=== PATIENT | female | born 1985 | race Caucasian/White ===

== ENCOUNTER → 2016-09-16 | Outpatient (CLI) | payer OTHER ==
[~2016-09-16] MED LIST: CPR/500 PO; METR-163 PO; OXYC-57 PO
[2016-09-16 18:52] LABS: URINE APPEARANCE CLOUDY (CLEAR); URINE BILIRUBIN NEG (NEG); URINE COLOR YELLOW; URINE EPITHELIAL CELL AUTO >30 /lpf (0-5); URINE NITRITE NEG (NEG); URINE SPECIFIC GRAVITY 1.025 (1.000-1.030); UROBILINOGEN NEG (NEG)
[2016-09-16 18:56] LABS: MANUAL MICROSCOPIC REQUIRED? NO; REVIEW REQ? NO
== END | disposition home or self-care (01) ==
LOC: C.LAB 18:21
PROVIDERS: ATTEND Obstetrics & Gynecology
DX: R10.2 Pelvic and perineal pain (principal)

== ENCOUNTER → 2016-10-21 | Outpatient (CLI) | payer OTHER ==
--- NOTE | 2016-10-21 13:52 | DIAGNOSTIC IMAGING REPORT ---
EXAMINATION: RENAL ULTRASOUND CLINICAL HISTORY: Hematuria. Pelvic pain. COMPARISON STUDY: None FINDINGS: The right kidney measures 11.3 cm. The left kidney measures 10 cm. There is no evidence of hydronephrosis. There are no renal masses. No bladder abnormalities are visualized. Bilateral ureteral jets were visualized. IMPRESSION : Normal renal ultrasound Electronically signed by: Sinan Tsang M.D. 10/21/2016 1:51 PM Dictated Date/Time: 10/21/2016 1:51 PM
== END | disposition home or self-care (01) ==
LOC: C.ULTRBC 13:04
PROVIDERS: ATTEND Physician Assistant
DX: R31.9 Hematuria, unspecified (principal); R10.2 Pelvic and perineal pain

== ENCOUNTER → 2016-10-21 | Outpatient (CLI) | payer OTHER ==
[2016-10-21 15:07] LABS: URINE APPEARANCE CLEAR (CLEAR); URINE BILIRUBIN NEG (NEG); URINE COLOR YELLOW; URINE NITRITE NEG (NEG); URINE PH 5.5 (4.5-7.5); URINE SPECIFIC GRAVITY 1.005 (1.000-1.030); UROBILINOGEN NEG (NEG); ZZUR CULT IF INDIC CLEAN CATCH NO
[2016-10-21 15:16] LABS: MANUAL MICROSCOPIC REQUIRED? NO; REVIEW REQ? NO
== END | disposition home or self-care (01) ==
LOC: C.LABSPEC 14:07
PROVIDERS: ATTEND Physician Assistant
DX: R10.2 Pelvic and perineal pain (principal); R31.9 Hematuria, unspecified

== ENCOUNTER → 2016-10-21 | Outpatient (CLI) | payer OTHER ==
[2016-10-21 12:53] LABS: BASO % 0.2 %; BASO ABS # 0.02 K/uL (0-0.2); COMPLETE YES; EOS % 0.9 %; HEMATOCRIT 40.9 % (37-47); IG% 0.3 %; LYMPH % 22.8 %; LYMPH ABS # 2.35 K/uL (1.2-3.4); MEAN CELL VOLUME 89.7 fL (80-100); MEAN CORPUSCULAR HGB CONC 33.5 g/dl (32-36); MEAN PLATELET VOLUME 10.4 fL (7.4-10.4); MONO % 5.8 %; PLATELET COUNT 242 K/uL (130-400); RED BLOOD COUNT 4.56 M/uL (4.2-5.4); WHITE BLOOD COUNT 10.31 K/uL (4.8-10.8)
[2016-10-21 13:47] LABS: PREG INTERNAL NEGATIVE QC NEG CLEAR BACKGROUND; PREG INTERNAL POSITIVE QC POS CONTROL LINE
== END | disposition home or self-care (01) ==
LOC: C.LAB1850 11:39
PROVIDERS: ATTEND Physician Assistant
DX: R10.2 Pelvic and perineal pain (principal); R31.9 Hematuria, unspecified

== ENCOUNTER 2016-10-22 18:38 | Emergency (ER) | payer OTHER ==
[~2016-10-22] VITALS: Ht 147.3 cm; Wt 81.2 kg
[2016-10-22 18:48] VITALS: TEMP 36.8; Ht 147.3 cm; Wt 81.2 kg
[2016-10-22] MEDS ORDERED: CPR/500 PO (20:17)
[2016-10-22] MEDS ORDERED: METR-163 PO (20:17)
[2016-10-22] MEDS ORDERED: SODIUM CHLORIDE 0.9% 1000ML 1,000 ML IV STA (20:32)
[2016-10-22] MEDS ORDERED: METOCLOPRAMIDE HCL INJ 5 MG/ML 2 ML VIAL IV STA (20:37)
[2016-10-22] MEDS ORDERED: KETOROLAC TROMETHAMINE 30 MG/ML VIAL IV STA (20:37)
[2016-10-22] MEDS ORDERED: HYDROmorphone INJ 1 MG/ML SYR IV STA ×2 (20:37→23:57)
[2016-10-22 20:57] LABS: BASO % 0.1 %; BASO ABS # 0.01 K/uL (0-0.2); COMPLETE YES; EOS % 1.4 %; IG% 0.4 %; LYMPH % 46.6 %; LYMPH ABS # 4.84 K/uL (1.2-3.4); MEAN CELL VOLUME 91.9 fL (80-100); MEAN CORPUSCULAR HEMOGLOBIN 30.6 pg (25-34); MEAN CORPUSCULAR HGB CONC 33.3 g/dl (32-36); MEAN PLATELET VOLUME 10.3 fL (7.4-10.4); NEUT % 46.5 %; PLATELET COUNT 240 K/uL (130-400); RED BLOOD COUNT 4.68 M/uL (4.2-5.4); WHITE BLOOD COUNT 10.38 K/uL (4.8-10.8)
[2016-10-22 21:00] LABS: URINE APPEARANCE CLEAR (CLEAR); URINE BILIRUBIN NEG (NEG); URINE COLOR YELLOW; URINE NITRITE NEG (NEG); URINE SPECIFIC GRAVITY 1.009 (1.000-1.030); UROBILINOGEN NEG (NEG)
[2016-10-22 21:15] LABS: BUN/CREATININE RATIO 18.2 (10-20); CALCIUM 9.4 mg/dl (8.5-10.1); CREATININE 0.72 mg/dl (0.60-1.20); POTASSIUM 3.7 mmol/L (3.5-5.1)
[2016-10-22 21:16] LABS: MANUAL MICROSCOPIC REQUIRED? NO; REVIEW REQ? NO
[2016-10-22 21:17] LABS: PREG INTERNAL NEGATIVE QC NEG CLEAR BACKGROUND; PREG INTERNAL POSITIVE QC POS CONTROL LINE
--- NOTE | 2016-10-22 21:55 | EMERGENCY ROOM VISIT NOTE ---
History Report prepared by Lou: Nusrat Rizvi Under the Supervision of: Dr. Emmanuel Sinclair M.D. First contact with patient: 19:54 Chief Complaint: ABDOMINAL PAIN Stated Complaint: PELVIC, SIDE,BACK PAIN Nursing Triage Summary: pt seen at [facility] yesterday for lower back and pelvic pain. had blood work, US of kidneys and told everything is negative and to follow up with PCP. pt reports they told her it my be intestinal related. pt then called today and told by PCP to go to [facility] for follow up. pt reports still having sharp pains in abdomen. pain was left radiating to right abdomen. now pain is all on the right side. pt reports she was also told that she has blood in her urine, but negative for infection. pt reports hx of IBS and is on fertility med Fermera and is attempting to get . History of Present Illness The patient is a 31 year old female who presents to the Emergency Room with complaints of constant sharp LLQ abdominal pain beginning 4 days ago. The patient states that she has a history of IBS and has also been following up with a gynecologists for urinary symptoms. She reports that she had an ultrasound, blood work, UA, and pelvic exam done yesterday and was started on Cipro but does not have a UTI. The patient notes that her abdominal pain is worsened with walking, coughing, and movement. She complains of constipation and diarrhea. The patient denies any nausea, vomiting, dysuria, fever, chills, vaginal bleeding or discharge, dark or bloody stools. She rates her pain as an 8 /10 in severity. She notes that her LNMP was 11 days ago and lasted 1 day which is typical for her. Pt is A0. Source of History: patient Onset: 4 days ago Position: abdomen (LLQ) Symptom Intensity: 8/10 Quality: sharp Timing: constant Modifying Factors (Worsening): movement, other (coughing) Associated Symptoms: + diarrhea, No chills, No fevers, No nausea, No vomiting Note: She complains of constipation. The patient denies any dysuria, vaginal bleeding or discharge, dark or bloody stools. Review of Systems See HPI for pertinent positives & negatives. A total of 10 systems reviewed and were otherwise negative. Past Medical & Surgical Medical Problems: (1) hernia Family History No pertinent family history stated. Social History Smoking Status: Never Smoker Alcohol Use: none Drug Use: none Marital Status: Housing Status: lives with family Current/Historical Medications Scheduled Ciprofloxacin (Ciprofloxacin HCl), 500 MG PO BID Metronidazole (Flagyl), 500 MG PO BID Scheduled PRN Oxycodone/Acetaminophen 5MG/325MG (Percocet 5MG/325MG), 1-2 TAB PO Q4H PRN for Pain Allergies Coded Allergies: No Known Allergies (Unverified , 10/22/16) Physical Exam Vital Signs Date Time Temp Pulse Resp B/P Pulse Ox O2 Delivery O2 Flow Rate FiO2 10/23/16 00:19 98 18 106/65 98 10/23/16 00:09 98 18 106/65 98 Room Air 10/22/16 22:16 97 16 116/74 96 Room Air 10/22/16 19:56 86 18 118/85 100 Room Air 10/22/16 18:48 36.8 83 18 133/65 100 Room Air Physical Exam GENERAL: Patient is a healthy-appearing well-nourished HEAD: Normocephalic atraumatic EYES: Ocular movements intact pupils equal and react to light OROPHARYNX mucous membranes are moist no exudates present no erythema or edema present NECK: Supple no nuchal rigidity CHEST: Good equal expansion LUNGS: Clear and equal to auscultation CARDIAC: Normal S1 and S2 ABDOMEN: Soft tender to the RLQ no guarding BACK: No CVA tenderness EXTREMITIES: No pain upon palpation normal muscle strength in all groups no clubbing cyanosis or edema NEURO: Patient is following commands is answering questions appropriately. Alert and oriented x3 Cranial Nerves 2-12 grossly intact Medical Decision & Procedures ER Provider Diagnostic Interpretation: Radiology results as stated below per my review and radiologist interpretation: CT Abdomen & Pelvis: No renal calculi. No hydronephrosis. No findings to extend the patient's hematuria. No free intraperitoneal air or fluid. Bowel is normal in caliber. The appendix is normal in appearance. Solid organs are otherwise unremarkable. Radiologist: Barrett Galindo MD EXAMINATION: PELVIC ULTRASOUND (transabdominal and endovaginal scanning) FINDINGS: The uterus measured 9.3 x 3.8 x 4.6 cm. There are small nabothian gland cysts. The endometrial stripe measured 9 mm. The right ovary measured 43 x 28 x 33 mm. There is a 19 mm dominant follicle. The left ovary measured 24 x 32 x 19 mm.. There is no ultrasonographic evidence of ovarian torsion. It should be noted that ovarian torsion can be present with normal Doppler ultrasonographic findings. There was no evidence of pathologic free pelvic fluid. IMPRESSION: Normal pelvic ultrasound. Electronically signed by: Sinan Tsang M.D. 10/22/2016 10:12 PM Dictated Date/Time: 10/22/2016 10:10 PM Laboratory Results 10/22/16 20:44 Red Blood Count 4.68, Mean Corpuscular Volume 91.9, Mean Corpuscular Hemoglobin 30.6, Mean Corpuscular Hemoglobin Concent 33.3, Mean Platelet Volume 10.3, Neutrophils (%) (Auto) 46.5, Lymphocytes (%) (Auto) 46.6, Monocytes (%) (Auto) 5.0, Eosinophils (%) (Auto) 1.4, Basophils (%) (Auto) 0.1, Neutrophils # (Auto) 4.82, Lymphocytes # (Auto) 4.84, Monocytes # (Auto) 0.52, Eosinophils # (Auto) 0.15, Basophils # (Auto) 0.01 10/22/16 20:44 Test 10/22/16 20:02 10/22/16 20:44 Urine Color YELLOW Urine Appearance CLEAR (CLEAR) Urine pH 5.0 (4.5-7.5) Urine Specific [place] 1.009 (1.000-1.030) Urine Protein NEG (NEG) Urine Glucose (UA) NEG (NEG) Urine Ketones NEG (NEG) Urine Occult Blood NEG (NEG) Urine Nitrite NEG (NEG) Urine Bilirubin NEG (NEG) Urine Urobilinogen NEG (NEG) Urine Leukocyte Esterase NEG (NEG) White Blood Count 10.38 K/uL (4.8-10.8) Red Blood Count 4.68 M/uL (4.2-5.4) Hemoglobin 14.3 g/dL (12.0-16.0) Hematocrit 43.0 % (37-47) Mean Corpuscular Volume 91.9 fL (80-100) Mean Corpuscular Hemoglobin 30.6 pg (25-34) Mean Corpuscular Hemoglobin Concent 33.3 g/dl (32-36) Platelet Count 240 K/uL (130-400) Mean Platelet Volume 10.3 fL (7.4-10.4) Neutrophils (%) (Auto) 46.5 % Lymphocytes (%) (Auto) 46.6 % Monocytes (%) (Auto) 5.0 % Eosinophils (%) (Auto) 1.4 % Basophils (%) (Auto) 0.1 % Neutrophils # (Auto) 4.82 K/uL (1.4-6.5) Lymphocytes # (Auto) 4.84 K/uL (1.2-3.4) Monocytes # (Auto) 0.52 K/uL (0.11-0.59) Eosinophils # (Auto) 0.15 K/uL (0-0.5) Basophils # (Auto) 0.01 K/uL (0-0.2) RDW Standard Deviation 43.9 fL (36.4-46.3) RDW Coefficient of Variation 13.2 % (11.5-14.5) Immature Granulocyte % (Auto) 0.4 % Immature Granulocyte # (Auto) 0.04 K/uL (0.00-0.02) Anion Gap 8.0 mmol/L (3-11) Est Creatinine Clear Calc Drug Dose 101.0 ml/min Estimated GFR () 128.4 Estimated GFR (Non- 110.8 BUN/Creatinine Ratio 18.2 (10-20) Calcium Level 9.4 mg/dl (8.5-10.1) Total Bilirubin 0.5 mg/dl (0.2-1) Direct Bilirubin 0.1 mg/dl (0-0.2) Aspartate Amino Transf (AST/SGOT) 17 U/L (15-37) Alanine Aminotransferase (ALT/SGPT) 22 U/L (12-78) Alkaline Phosphatase 91 U/L (45-117) Total Protein 8.3 gm/dl (6.4-8.2) Albumin 4.5 gm/dl (3.4-5.0) Lipase 186 U/L (73-393) Human Chorionic Gonadotropin, Qual NEG (NEG) Date/Time Source Procedure Growth Status 10/23/16 00:15 Stool C.difficile Toxin B Gene (PCR) - Final No C. difficile toxin B gene detected Complete Labs reviewed by ED physician. Medications Administered Medications (Trade) Dose Ordered Sig/Jorge Route Start Time Stop Time Status Last Admin Dose Admin Sodium Chloride (Nss 1000ml) 1,000 ml @ 999 mls/hr Q1H1M STAT IV 10/22/16 20:32 10/22/16 21:32 DC 10/22/16 20:32 999 MLS/HR Hydromorphone HCl (Dilaudid Inj) 1 mg NOW STAT IV 10/22/16 20:37 10/22/16 20:40 DC 10/22/16 20:56 1 MG Ketorolac Tromethamine (Toradol Inj) 30 mg NOW STAT IV 10/22/16 20:37 10/22/16 20:40 DC 10/22/16 20:56 30 MG Metoclopramide HCl (Reglan Inj) 10 mg NOW STAT IV 10/22/16 20:37 10/22/16 20:40 DC 10/22/16 20:56 10 MG Ondansetron HCl (Zofran Inj) 4 mg NOW STAT IV 10/22/16 22:12 10/22/16 22:13 DC 10/22/16 22:16 4 MG Oxycodone/ Acetaminophen (Percocet 5/ 325MG Home Pack) 1 homepack UD ONCE PO 10/23/16 00:00 10/23/16 00:01 DC 10/23/16 00:16 1 HOMEPACK ED Course 1953: Past medical records reviewed. The patient was evaluated in room B10. A complete history and physical examination was performed. 2031: Sodium Chloride 1000 ml @ 999 mls/hr IV. 2036: Reglan Inj 10mg IV, Toradol Inj 30mg IV, Dilaudid Inj 1mg IV. 2: Zofran Inj 4mg IV. 7: Dilaudid Inj 1mg IV. 0000: Oxycodone/Acetaminophen 1 homepack PO. 0006: Upon reexamination the patient is hemodynamically stable. I discussed results and treatment plan with the patient. She verbalizes agreement and understanding. The patient is ready for discharge. Medical Decision Differential diagnosis: Etiologies such as appendicitis, diverticulitis, PUD, biliary pathology, UTI, pancreatitis, obstruction, mesenteric ischemia, aortic pathology, infections, inflammatory bowel disease, renal colic, as well as others were entertained. This is a 31-year-old female who presents emergency department complaining of right lower quadrant abdominal pain. Patient was seen yesterday and was started on Cipro and Flagyl the patient reports today complaining of more abdominal pain. For this reason the patient was given a CT scan. This did not show any evidence of acute process. Her ultrasound is concerning for a 2 cm right lower quadrant cyst. Believe that this could possibly be causing the patient's pain. I did recommend a clear liquid diet for the next 48 hours. While in the emergency department the patient received normal saline bolus, Dilaudid, Reglan. Repeat examination revealed improvement patient's symptoms. I do believe that the patient as well as to be discharged home follow-up with [facility]. Patient was in agreement with the treatment plan. Impression Primary Impression: RLQ abdominal pain Additional Impression: Ovarian cyst Scribe Attestation The scribe's documentation has been prepared under my direction and personally reviewed by me in its entirety. I confirm that the note above accurately reflects all work, treatment, procedures, and medical decision making performed by me. Departure Information Dispostion Home / Self-Care Prescriptions Oxycodone/Acetaminophen 5MG/325MG (PERCOCET 5MG/325MG) Tab 1-2 TAB PO Q4H Y for Pain, #14 TAB Prov: Emmanuel Sinclair MD 10/22/16 Referrals Jeovanny Nunez M.D. (PCP) Forms Call Back Authorization, HOME CARE DOCUMENTATION FORM, IMPORTANT VISIT INFORMATION Patient Instructions ED Abd Pain Unkn Cause Fem, ED Cyst Ovarian, My [facility] Additional Instructions Need follow up with OB You received narcotic or benzodiazepene medication while in the emergency room today. Do not drive, operate heavy machinery, or drink alcohol under the influence of this medication. Take 600 mg Ibuprofen every 6 hours Take Percocet for breakthrough pain You have been examined and treated today on an emergency basis only. This is not a substitute for, or an effort to provide, complete comprehensive medical care. It is impossible to recognize and treat all injuries or illnesses in a single emergency department visit. It is therefore important that you follow up closely with Dr Nunez. Call as soon as possible for an appointment. Thank you for your time and consideration. I look forward to speaking with you again soon. Please don't hesitate to call us if you have any questions. Problem Qualifiers Additional Impression: Ovarian cyst Laterality: right Qualified Codes: N83.201 - Unspecified ovarian cyst, right side
[2016-10-22] MEDS ORDERED: ONDANSETRON INJ 2 MG/ML 2 ML VIAL IV STA (22:12)
--- NOTE | 2016-10-22 22:13 | DIAGNOSTIC IMAGING REPORT ---
EXAMINATION: PELVIC ULTRASOUND (transabdominal and endovaginal scanning) CLINICAL HISTORY: Right-sided pelvic pain COMPARISON STUDY: FINDINGS: The uterus measured 9.3 x 3.8 x 4.6 cm. There are small nabothian gland cysts. The endometrial stripe measured 9 mm. The right ovary measured 43 x 28 x 33 mm. There is a 19 mm dominant follicle. The left ovary measured 24 x 32 x 19 mm.. There is no ultrasonographic evidence of ovarian torsion. It should be noted that ovarian torsion can be present with normal Doppler ultrasonographic findings. There was no evidence of pathologic free pelvic fluid. IMPRESSION: Normal pelvic ultrasound. Electronically signed by: Sinan Tsang M.D. 10/22/2016 10:12 PM Dictated Date/Time: 10/22/2016 10:10 PM
[2016-10-22] MEDS ORDERED: OPTIRAY 320 IV PRN (23:15)
[2016-10-22] MEDS ORDERED: OXYC-57 PO (23:59)
[2016-10-23] MEDS ORDERED: PERCOCET HOME PACK PO ONE
[2016-10-23 00:19] VITALS: BP 106/65; PULSE 98; O2SAT 98
--- NOTE | 2016-10-23 06:44 | DIAGNOSTIC IMAGING REPORT ---
CT OF THE ABDOMEN AND PELVIS WITH CONTRAST CLINICAL HISTORY: Right lower quadrant abdominal pain. Hematuria. COMPARISON STUDY: Renal ultrasound October 21, 2016 and pelvic ultrasound October 22, 2016. TECHNIQUE: Following IV administration of 115 mL of Optiray-320, axial images of the abdomen and pelvis were obtained from the lung bases to the proximal femurs. Images were reviewed in the axial, sagittal, and coronal planes. IV contrast was administered without complication. Oral contrast was administered. CT DOSE: 782.17 mGy.cm FINDINGS: Lung bases are clear. The liver, spleen, adrenal glands, kidneys and pancreas are normal with the exception of mild hepatomegaly. There is no hydronephrosis. No urinary calculi are identified on this contrast enhanced exam. There is no evidence for a bowel obstruction. There may be a previous umbilical hernia repair with mesh. The appendix is normal. There is a dominant follicle within the right ovary. No pneumatosis, free air or portal venous gas is present. Skeletal structures are unremarkable. IMPRESSION: No acute process within the abdomen or pelvis. Normal appendix. Electronically signed by: Rayshawn Pino M.D. 10/23/2016 6:42 AM Dictated Date/Time: 10/23/2016 6:37 AM
== END 2016-10-23 00:17 | disposition home or self-care (01) ==
LOC: C.EDB 18:40
DX: N83.201 Unspecified ovarian cyst, right side (principal); K58.0 Irritable bowel syndrome with diarrhea

== ENCOUNTER → 2016-11-30 | Outpatient (CLI) | payer OTHER ==
[2016-11-30 18:32] LABS: URINE APPEARANCE CLOUDY (CLEAR); URINE BILIRUBIN NEG (NEG); URINE COLOR DK YELLOW; URINE EPITHELIAL CELL AUTO >30 /lpf (0-5); URINE NITRITE NEG (NEG); URINE PH 5.5 (4.5-7.5); URINE SPECIFIC GRAVITY 1.026 (1.000-1.030); UROBILINOGEN POS (NEG)
[2016-11-30 18:39] LABS: MANUAL MICROSCOPIC REQUIRED? NO; REVIEW REQ? NO
== END | disposition home or self-care (01) ==
LOC: C.LABSPEC 17:51
PROVIDERS: ATTEND Obstetrics & Gynecology
DX: O09.01 Supervision of pregnancy with history of infertility, first trimester (principal); Z3A.00 Weeks of gestation of pregnancy not specified

== ENCOUNTER → 2016-12-07 | Outpatient (CLI) | payer OTHER ==
[2016-12-07 10:36] LABS: BASO % 0.1 %; BASO ABS # 0.01 K/uL (0-0.2); COMPLETE YES; EOS % 0.5 %; HEMATOCRIT 40.1 % (37-47); IG% 0.4 %; LYMPH % 26.7 %; LYMPH ABS # 2.07 K/uL (1.2-3.4); MEAN CELL VOLUME 93.3 fL (80-100); MEAN CORPUSCULAR HEMOGLOBIN 30.9 pg (25-34); MEAN CORPUSCULAR HGB CONC 33.2 g/dl (32-36); MEAN PLATELET VOLUME 10.2 fL (7.4-10.4); MONO % 5.7 %; NEUT % 66.6 %; PLATELET COUNT 228 K/uL (130-400); WHITE BLOOD COUNT 7.76 K/uL (4.8-10.8)
[2016-12-09 00:54] LABS: CHLAMYDIA TRACH RNA*** NOT DETECTED (NOT DETECTED); GC (NEIS GONORRHOEAE)RNA** NOT DETECTED (NOT DETECTED)
== END | disposition home or self-care (01) ==
LOC: C.LAB1850 08:58
PROVIDERS: ATTEND Obstetrics & Gynecology
DX: O09.01 Supervision of pregnancy with history of infertility, first trimester (principal); Z3A.00 Weeks of gestation of pregnancy not specified

== ENCOUNTER → 2017-02-07 | Outpatient (CLI) | payer OTHER ==
[2017-02-07 11:44] LABS: GTGD 50 Grams
== END | disposition home or self-care (01) ==
LOC: C.LAB1850 10:03
PROVIDERS: ATTEND Obstetrics & Gynecology
DX: O09.01 Supervision of pregnancy with history of infertility, first trimester (principal); Z3A.00 Weeks of gestation of pregnancy not specified

== ENCOUNTER → 2017-03-29 | Outpatient (CLI) | payer OTHER | END | disposition home or self-care (01) | LOC: C.LAB1850 07:06 | PROVIDERS: ATTEND Obstetrics & Gynecology | DX: O28.9 Unspecified abnormal findings on antenatal screening of mother (principal) ==

== ENCOUNTER → 2017-04-26 | Outpatient (CLI) | payer OTHER ==
[~2017-04-26] MED LIST changes: -OXYC-57 PO
[2017-04-26 14:31] LABS: URINE APPEARANCE CLEAR (CLEAR); URINE BILIRUBIN NEG (NEG); URINE COLOR YELLOW; URINE EPITHELIAL CELL AUTO >30 /lpf (0-5); URINE NITRITE NEG (NEG); URINE PH 7.5 (4.5-7.5); URINE SPECIFIC GRAVITY 1.012 (1.000-1.030); UROBILINOGEN NEG (NEG)
[2017-04-26 14:32] LABS: MANUAL MICROSCOPIC REQUIRED? NO; REVIEW REQ? NO
== END | disposition home or self-care (01) ==
LOC: C.LABSPEC 14:01
PROVIDERS: ATTEND Obstetrics & Gynecology
DX: O09.03 Supervision of pregnancy with history of infertility, third trimester (principal)

== ENCOUNTER → 2017-04-30 | Outpatient (CLI) | payer OTHER ==
[2017-04-30 10:55] LABS: HEMATOCRIT 37.5 % (37-47)
== END | disposition home or self-care (01) ==
LOC: C.LAB 08:26
PROVIDERS: ATTEND Obstetrics & Gynecology
DX: O09.03 Supervision of pregnancy with history of infertility, third trimester (principal); Z3A.00 Weeks of gestation of pregnancy not specified

== ENCOUNTER → 2017-07-07 | Outpatient (CLI) | payer OTHER ==
[~2017-07-07] MED LIST changes: +PRENTAB26 PO
[2017-07-08 07:21] LABS: URINE APPEARANCE CLOUDY (CLEAR); URINE BILIRUBIN NEG (NEG); URINE COLOR YELLOW; URINE EPITHELIAL CELL AUTO >30 /lpf (0-5); URINE NITRITE NEG (NEG); URINE PH 5.5 (4.5-7.5); URINE SPECIFIC GRAVITY 1.024 (1.000-1.030); UROBILINOGEN NEG (NEG)
[2017-07-08 07:25] LABS: MANUAL MICROSCOPIC REQUIRED? NO; REVIEW REQ? YES
== END | disposition home or self-care (01) ==
LOC: C.LAB1850 15:37
PROVIDERS: ATTEND Obstetrics & Gynecology
DX: R30.0 Dysuria (principal)

== ENCOUNTER 2017-07-08 12:29 | Inpatient (IN) | payer OTHER ==
[~2017-07-08] VITALS: Ht 149.9 cm; Wt 79.0 kg
[~2017-07-08 12:29] MED LIST changes: -PRENTAB26 PO
[2017-07-08] MEDS ORDERED: OXYTOCIN 30 UNITS/500ML NSS IV ONE (12:31)
[2017-07-08] MEDS ORDERED: MEASLES, MUMPS & RUBELLA VIRUS VIAL SQ. ONE (12:45)
[2017-07-08] MEDS ORDERED: LANOLIN OINT EXT PRN ×2 (12:45)
[2017-07-08] MEDS ORDERED: DIPHTHERIA/TETANUS/PERTUSSIS 0.5 ML SYR/VIAL IM. ONE (12:45)
[2017-07-08] MEDS ORDERED: SUPERCREAM 0.870 % 15GM JAR EXT PRN (12:45)
[2017-07-08] MEDS ORDERED: BENZOCAINE 20% AER SPR 82.5 GM CAN EXT PRN (12:45)
[2017-07-08] MEDS ORDERED: OXYTOCIN 30 UNITS/500ML NSS IV PRN (12:45)
[2017-07-08] MEDS ORDERED: ACETAMINOPHEN 325 MG TAB PO PRN (12:45)
[2017-07-08] MEDS ORDERED: OXYCODONE/ACETAMINOPHEN 5-325 TAB PO PRN (12:45)
[2017-07-08] MEDS ORDERED: HYDROCORTISONE ACETATE 25 MG SUPP PR PRN (12:45)
[2017-07-08] MEDS ORDERED: LACTATED RINGER'S 1000ML 1,000 ML IV SCH (13:00)
--- NOTE | 2017-07-08 13:01 | DELIVERY SUMMARY ---
DATE OF OPERATION: 07/08/2017 PREOPERATIVE DIAGNOSIS: 1. Wynn intrauterine at 38+ weeks. 2. Group B strep positive. 3. Rubella non-immune. 4. History of infertility with a conceived using Femara. 5. Spontaneous onset of labor. 6. Spontaneous rupture of membranes occurring in ambulance en route to hospital. POSTOPERATIVE DIAGNOSIS: Same. PROCEDURE: Spontaneous vaginal delivery. SURGEON: Dr. Weston. SECONDS GRADER: None. ESTIMATED BLOOD LOSS: 350. COMPLICATIONS: None. DISPOSITION: Stable in Labor and Delivery. DESCRIPTION: Otilia is a 32-year-old at 38+ weeks. She notified EMS when she began experiencing contractions this morning that rapidly became very painful. Labor and Delivery was notified that the patient was incoming to the hospital by the ER and that she was expected within the next few minutes. A delivery team and infant warmer were brought to the ER. We were awaiting the arrival of patient in trauma suite A1 when Otilia did arrive. I immediate checked her cervix and found her to be 9 cm dilated and ruptured for clear fluid. We at that time to made the decision to move her to directly to Labor and Delivery and the team relocated. Once she was in room 2 and transferred into the Labor and Delivery bed she was reassessed and found to be completely dilated. An IV was quickly placed and the patient then began her second stage of labor. She pushed very well and over several contractions was able to bring the head of the to delivery in an REINA position. The neck was checked and there was no nuchal cord. Through the next push the right/anterior shoulder as well as the right fist, which was compound presentation, did deliver. The left/posterior shoulder then delivered and the remainder of the infant followed with no difficulty whatsoever. A vigorous female was then placed on the maternal abdomen where the cord was doubly clamped and cut by the father of the baby. The placenta delivered spontaneously and was noted to be intact with a 3-vessel cord. At the completion of delivery the cervix, vagina and perineum were examined. The only laceration was a shallow first degree laceration of the perineum and posterior fourchette for which the patient declined repair and I think this is highly reasonable. The patient and are currently in stable condition in Labor and Delivery room 2. I attest to the content of the Intraoperative Record and any orders documented therein. Any exception s are noted below.
[2017-07-08 13:36] VITALS: Ht 149.9 cm; Wt 79.0 kg
[2017-07-08 16:15] VITALS: BP 137/85; PULSE 97; TEMP 36.7
[2017-07-08] MEDS: IBUPROFEN 600 MG TAB PO PRN (16:33)
[2017-07-08 16:35] VITALS: BP 155/78; PULSE 87
[2017-07-08 19:45] VITALS: BP 128/83; PULSE 105; TEMP 36.7; O2SAT 97
[2017-07-08] MEDS: DOCUSATE SODIUM 100 MG CAP PO SCH (19:59)
[2017-07-08 23:45] VITALS: BP 129/83; PULSE 81; TEMP 36.8; O2SAT 97
[2017-07-09] MEDS: IBUPROFEN 600 MG TAB PO PRN ×4 (02:24→23:25)
[2017-07-09 03:50] VITALS: BP 129/85; PULSE 84; TEMP 36.5; O2SAT 96
[2017-07-09 06:57] LABS: HEMATOCRIT 40.9 % (37-47)
--- NOTE | 2017-07-09 07:46 | Progress Note ---
Subjective Jul 09, 2017. Subjective conversation w/ patient, physical exam, chart review, lab review Ambulation: ambulating normally Voiding: no voiding problems Passing Gas: Yes Diet Tolerance: Regular Diet Lochia: Moderate Feeding Type: Breast Feeding Pain: controlled Review of Systems Respiratory: No shortness of breath Cardiac: No chest pain Abdomen: No vomiting Female : No dysuria Objective Vital Signs Date Time Temp Pulse Resp B/P (MAP) Pulse Ox O2 Delivery O2 Flow Rate FiO2 07/09/17 03:50 36.5 84 16 129/85 (100) 96 Room Air 07/08/17 23:45 36.8 81 16 129/83 (98) 97 Room Air 07/08/17 23:45 97 Room Air 07/08/17 19:45 36.7 105 16 128/83 (98) 97 Room Air 07/08/17 16:35 87 155/78 (103) 07/08/17 16:15 36.7 97 24 137/85 Physical Exam General Appearance: WELL-APPEARING, WD/WN, NO APPARENT DISTRESS Respiratory/Chest: lungs clear, normal breath sounds, no respiratory distress Cardiovascular: regular rate, rhythm, no gallop Abdomen: normal bowel sounds, soft Fundus: Firm, Non-Tender, Relation to Umbilicus (1 below U) Extremities: non-tender, normal inspection Laboratory Results Last 24 Hours Test 07/09/17 05:59 Hemoglobin 13.5 g/dL Hematocrit 40.9 % Assessment and Plan Post- Day#: 1 Continue Routine Care: 32 yof (now2) 07/08 1200 O+/GBS +/ Rubella non immune Vitals reviewed and wnl Hgb 13.5. No s/s anemia. Pt doing well clinically, will stay 48 hours pending baby. MMR ordered. Continue routine post care, encourage ambulation, monitor lochia, support, control pain motrin/tylenol. LINA CINTRON FMR PGY 1 Resident Physician Supervision Note: I interviewed and examined the patient. Discussed with Dr. Cintron and agree with findings and plan as documented in the note. Any exceptions or clarifications are listed here: [None] Documented By: Myranda Weston Resident Tracking Resident Involvement: Resident Care Provided Care Provided: OB Delivery
[2017-07-09] MEDS ORDERED: PRENTAB26 PO ×2 (07:47)
--- NOTE | 2017-07-09 07:48 | Discharge Instructions ---
Discharge Instructions Date of Service Jul 09, 2017. Admission Reason for Admission: LABOR Discharge Discharge Diagnosis / Problem: SPONTANEOUS VAGINAL DELIVERY Discharge Goals Goal(s): Routine recovery after delivery Medications Continue Dispensed Medications: supercream, dermaplast, tucks, lansinoh Activity Recommendations Activity Limitations: per Instructions/Follow-up section . Instructions / Follow-Up Instructions / Follow-Up ACTIVITY RECOMMENDATIONS: * Gradual return to full activity over the next 2-3 weeks. * No lifting - nothing heavier than baby over the next 2-3 weeks. * Do not engage in vigorous exercise, sexual activity or sports until cleared by your physician. * Do not drive or operate any motorized equipment until cleared by your physician. * You may shower/bathe daily. MEDICATIONS: For discomfort or pain, you may use Acetaminophen (Tylenol), Ibuprofen (Advil), or Naproxen (Aleve) following the package directions. For constipation you may use Colace following the package directions. BREAST CARE: If you are not breast feeding: * Wear a supportive bra 24 hours a day for one to two weeks. * Avoid stimulating your breasts and nipples as much as possible during the first few weeks after delivery. * When taking a shower, have the warm water hit your back, not breasts. * When your breasts feel full, apply ice packs. Usually three to four times a day helps ease the discomfort. * Take a mild pain medication (Tylenol / Motrin) when you are uncomfortable. If breast feeding: * Use breast milk to lubricate nipples. Lansinoh cream may be used for sore nipples. You do not need to remove cream prior to breast feeding. If using a different brand of cream, check the label for directions regarding removal of cream prior to nursing. * Wear a supportive bra. * If having problems with breasts or breast feeding, call a sustainability consultant or your health care provider. EPISIOTOMY CARE: After delivery, if you have an episiotomy (stitches), the following steps will ease discomfort and aid healing. * For the first 24 hours after delivery, place ice packs next to your episiotomy to help reduce swelling. * After the first 24 hour-period, sitz baths, either portable or in the tub, are suggested. A shower with a shower arm sprayed over the episiotomy may be comforting. * So care should be done after each voiding and bowel movement. Squirt warm water from a plastic bottle over the perineum (region of the body between the anus and urinary opening) and pat dry. * Use Dermoplast to ease discomfort. Shake container. [place] directly over the episiotomy. Place a Tucks on a clean sanitary pad next to your episiotomy. SPECIAL CARE INSTRUCTIONS: When you are discharged from the hospital, it is important for you to follow the instructions listed below: * During the first week at home, you should be able to care for yourself and your baby. In addition, the usual light household activities are encouraged. * Limit your activities to the way you feel. Do not try to clean the house or move furniture. Be sensible. * If you actively engage in sports and have done so up until the time of your delivery, you may resume these activities as soon as you feel able. This may take up to one month or even longer. Use good judgment. * Continue to take your vitamins for at least six weeks after the of your baby. * Your diet need not be limited unless you were on a special diet before your delivery. Breast-feeding mothers need around 2500 calories per day and at least 64-80 ounces of fluid per day (8 to 10 glasses). * You should eat foods from the four major food groups. Crash diets or fad diets are to be avoided. Eating lean meats, fresh fruits and vegetables, low-fat dairy products, high fiber foods and a regular exercise program, will help you get back to your pre- weight without putting your health at risk. * Constipation is sometimes a problem after delivery. Take a mild laxative as needed. If breast feeding, Milk of Magnesia is acceptable to use. You may use a suppository or Fleets enema if no episiotomy. * A daily shower or tub bath is suggested. Be sure to thoroughly and gently dry the perineum. * A bloody vaginal discharge will usually continue until around four weeks post . A small amount of bleeding may continue for as long as six weeks. Vaginal discharge changes from the bright red bleeding after delivery to pink then brownish and finally yellowish-pink before becoming white and disappearing. * Bleeding may increase with activity. Your first period may come in 4-8 weeks. If you are breast feeding, your period may be delayed even longer. * [place] (sex) can begin whenever both you and your partner feel comfortable and do not have any form of genital infection. It is recommended that you wait at least six weeks for internal and external healing to occur. If you have questions, please talk to your health care practitioner. A condom should be used to prevent infection and . * Foreplay, gentle intercourse and lubrication is very important the first several times to prevent pain. A water-based lubricant such as K-Y jelly or Astroglide may be used. * If you have RH negative blood and your baby is RH positive, you will receive RHOGAM by injection prior to discharge. The nurse will give you a card to keep with you that has the date and place that you received RHOGAM after delivery. * During your care, you had a Rubella screen done to check for the presence of rubella antibodies in your blood. If your test was negative, you will receive a Rubella vaccine prior to discharge. This vaccine may cause a fever, soreness at the injection site and flu-like symptoms. If these symptoms persist, notify your health care practitioner. is not advised for one month after a Rubella vaccine. * Verbalizes understanding of car seat law as reviewed with patient nursing. * Car Seat hand-out given and reviewed with patient by nursing. * Shaken baby information reviewed with patient by nursing. Call you doctor if: * Heavy bleeding (saturating several pads an hour) or passing clots the size of your fist. * A fever >101 degrees F (38.3 degrees C) on two occasions four hours apart and /or chills. * Unusual pain in the pelvic or vaginal areas. * "Baby Blues" lasting longer than two weeks. If you have any questions or concerns, call your health care practitioner at . FOLLOW UP VISIT: * Please call the office at to schedule a 6 week examination. It is important you keep this appointment. It is important for you to make arrangements for either yearly or twice yearly check-ups thereafter. Current Hospital Diet Patient's current hospital diet: Regular OB Diet Discharge Diet Recommended Diet: Regular Diet Pending Studies Studies pending at discharge: no Medical Emergencies . Who to Call and When: Medical Emergencies: If at any time you feel your situation is an emergency, please call 911 immediately. . Non-Emergent Contact Non-Emergency issues call your: Primary Care Provider . . "Provider Documentation" section prepared by Frances Cintron. . VTE Core Measure Inpt VTE Proph given/why not?: Treatment not indicated
[2017-07-09 08:00] VITALS: BP 135/90; PULSE 83; TEMP 36.5
[2017-07-09] MEDS: DOCUSATE SODIUM 100 MG CAP PO SCH ×2 (08:03→19:36)
[2017-07-09] MEDS: PRENATAL VITAMIN TAB PO SCH (08:03)
[2017-07-09 12:15] VITALS: BP 128/80; PULSE 80; TEMP 36.5
[2017-07-09 16:00] VITALS: BP 125/85; PULSE 90; TEMP 36.6
[2017-07-09 20:35] VITALS: BP 141/83; PULSE 85
[2017-07-09 23:15] VITALS: BP 121/83; PULSE 77; TEMP 36.5
[2017-07-10] MEDS: IBUPROFEN 600 MG TAB PO PRN (07:57)
[2017-07-10] MEDS: DOCUSATE SODIUM 100 MG CAP PO SCH (07:57)
[2017-07-10] MEDS: PRENATAL VITAMIN TAB PO SCH (07:57)
--- NOTE | 2017-07-10 08:03 | Progress Note ---
Subjective Jul 10, 2017. Subjective conversation w/ patient, physical exam Ambulation: ambulating normally Voiding: no voiding problems Feeding Type: Bottle Feeding Objective Vital Signs Date Time Temp Pulse Resp B/P (MAP) Pulse Ox O2 Delivery O2 Flow Rate FiO2 07/09/17 23:15 36.5 77 16 121/83 (96) Room Air 07/09/17 23:15 Room Air 07/09/17 16:00 36.6 90 20 125/85 (98) Room Air 07/09/17 16:00 Room Air 07/09/17 12:15 36.5 80 20 128/80 (96) Room Air Physical Exam General Appearance: WELL-APPEARING, NO APPARENT DISTRESS Fundus: Firm, Non-Tender Extremities: no calf tenderness Assessment and Plan Problem List Medical Problems: (1) Abdominal pain Status: Acute (2) Ovarian cyst Status: Acute (3) RLQ abdominal pain Status: Acute Post- Day#: 2 Continue Routine Care: - doing well - desires d/c - instructions given - f/u in 6 weeks
[2017-07-10 08:30] VITALS: BP 110/74; PULSE 85; TEMP 36.4
[2017-07-10 12:30] VITALS: BP_DIAS 74; PULSE 85; TEMP 36.4
== END 2017-07-10 13:15 | disposition home or self-care (01) | DRG 775 ==
LOC: C.LD 12:29 → C.OBG 17:14
PROVIDERS: ADMIT Obstetrics & Gynecology; ATTEND Obstetrics & Gynecology
PROC: 10E0XZZ Delivery of Products of Conception, External Approach (ICD-10-PCS; principal; 2017-07-08)
DX: O70.0 First degree perineal laceration during delivery (principal); Z22.330 Carrier of Group B streptococcus; Z37.0 Single live birth; Z3A.39 39 weeks gestation of pregnancy

== ENCOUNTER 2024-07-30 12:28 | Observation (INO) ==
[2024-07-30 13:09] LABS: Appearance Urine Clear (Clear); Bilirubin Urine Negative (Negative); Blood Urine Negative (Negative); Color Urine Yellow; Glucose Urine UA Negative (Negative); Ketones Urine Negative (Negative); Leukocyte Esterase Urine Negative (Negative); Nitrite Urine Negative (Negative); Protein Urine Negative (Negative); Specific Gravity Urine 1.005 (1.000-1.030); Urobilinogen Urine Negative (Negative); pH Urine 5.5 (4.5-7.5)
[2024-07-30 13:18] LABS: Basophils # (auto) 0.03 K/uL (0.00-0.20); Basophils % (auto) 0.4 %; Eosinophils # (auto) 0.08 K/uL (0.00-0.50); Eosinophils % (auto) 1.1 %; Hematocrit (blood only) 43.8 % (37.0-47.0); Immature Granulocytes # (auto) 0.03 K/uL (0.01-0.20); Immature Granulocytes % (auto) 0.4 %; Lymphocytes # (auto) 2.25 K/uL (1.20-3.40); Lymphocytes % (auto) 31.8 %; Mean Corpuscular Hemoglobin 30.3 pg (25.0-34.0); Mean Corpuscular Volume 94.8 fL (80.0-100.0); Mean Platelet Volume 10.1 fL (9.4-12.4); Monocytes # (auto) 0.36 K/uL (0.11-0.59); Monocytes % (auto) 5.1 %; Neutrophils # (auto) 4.32 K/uL (1.40-6.50); Neutrophils % (auto) 61.2 %; Platelet Count 245 K/uL (130-400); RDW Coefficient of Variation 14.2 % (11.5-14.5); RDW Standard Deviation 49.6 fL (36.4-46.3); Red Blood Count 4.62 M/uL (4.20-5.40); White Blood Count 7.07 K/ul (4.8-10.8)
[2024-07-30 13:34] LABS: Alanine Aminotransferase 15 U/L (7-52); Albumin Globulin Ratio 1.4 (0.9-2); Albumin Level 4.8 gm/dl (3.4-5.0); Alkaline Phosphatase 55 U/L (34-104); Anion Gap 9 (3-11); Aspartate Aminotransferase 15 U/L (13-39); BUN Creatinine Ratio 17.7 (10-20); Bilirubin Direct 0.2 mg/dl (0-0.2); Bilirubin,Total 0.9 mg/dl (0.2-1.0); Blood Urea Nitrogen 11 mg/dl (6-23); Calcium 9.4 mg/dl (8.6-10.3); Carbon Dioxide 21 mmol/L (21-32); Chloride 108 mmol/L (98-107); Creatinine Clr Calc Pharmacy 84.8 ml/min; Globulin 3.4 gm/dl (2.5-4.0); Glucose 78 mg/dl (70-99(Fasting)); Lipase 98 U/L (11-82); Potassium 3.7 mmol/L (3.5-5.1); Sodium 138 mmol/L (136-145); Total Protein 8.2 gm/dl (6.0-8.3); Troponin I High Sensitivity < 2.3 pg/ml (0-14)
[2024-07-30] MEDS: OPTIRAY 320 100ml IV ONE (13:46)
--- NOTE | 2024-07-30 14:03 | CT Scan Report ---
CT abd pelvis IV con only CLINICAL HISTORY: RUQ PAIN, RECENT ERCP WTIH STENTING TECHNIQUE: Helical axial images of the abdomen and pelvis were obtained and displayed. Automated dose lowering techniques and/or adjustment according to patient size were utilized for this exam. This e xam was performed with intravenous contrast. CT DOSE: 406.9 mGy.cm COMPARISON: Comparison is made to CT abdomen pelvis 09/09/2023 FINDINGS: Lower chest: No acute abnormality. Liver: Unremarkable. No focal lesions are seen. Gallbladder and biliary tree: Gas is noted in the gallbladder. A common bile duct stent is seen with pneumobilia. An adjacent radiodensity likely represents a stent as well. Pancreas: Unremarkable, no focal lesions. Spleen: Unremarkable. Adrenals: Unremarkable. Kidneys and ureters: Unremarkable. Bladder: Limited evaluation due to underdistention. Reproductive organs: Unremarkable. Bowel: The appendix is normal. There is a small hiatal hernia. Lymph nodes Retroperitoneal: Unremarkable. Pelvic: Unremarkable. Mesenteric: Unremarkable. Peritoneum: Normal. Vessels: Unremarkable. Abdominal wall: Unremarkable. Bones: Unremarkable. IMPRESSION: There is a common bile duct stent with pneumobilia and gas in the gallbladder. ACT 112: Negative or not required by law. Electronically signed by: Raj Grant M.D. 07/30/2024 2:02 PM
--- NOTE | 2024-07-30 14:54 | Emergency Department Note ---
Impression & Plan Epigastric abdominal pain, Biliary colic, History of biliary stent insertion ED Provider Note NAME: WAQAS MICHELLE AGE: 39 SEX: F : 1985 ARRIVES VIA: Walk-In INFORMANT: [Patient] ED PROVIDER(S): [Dallas Ashby MD] CHIEF COMPLAINT: Abdominal pain HISTORY OF PRESENT ILLNESS: The patient is a 39-year-old female who was diagnosed with gallbladder disease just under a month ago. She was sent to an outside hospital and had a biliary stent placed. She is to see a surgeon in a few days and talk about gallbladder removal. Since the stent placement, she has had some intermittent epigastric pain but she last night developed epigastric pain that has been persistent all day today as well. The pain moved to the right upper quadrant. There has been no nausea or vomiting. She felt chilled and thought she may have had a low- grade fever earlier. No cough or congestion. No diarrhea. The patient spoke with the surgical office, she was referred to the ER. PMHx/PSHx/Social Hx: See Below PHYSICAL EXAM: GENERAL: Patient is in no acute distress. HEENT: No acute trauma, normocephalic atraumatic, mucous membranes moist, no nasal congestion. NECK: No stridor, no adenopathy, no meningismus, trachea is midline. LUNGS: Clear to auscultation bilaterally, no wheeze, no rhonchi, breath sounds equal. HEART: Without murmurs gallops or rubs, regular rate and rhythm. ABDOMEN: Soft, somewhat tender in the epigastrium and right upper quadrant. EXTREMITIES: No cyanosis, full range of motion of all the joints without pain or difficulty. NEUROLOGIC: Oriented x 3, no acute motor or sensory deficits, no focal weakness. SKIN: No jaundice, no diaphoresis. DIFFERENTIAL DIAGNOSIS: Biliary stent obstruction, acute cholecystitis, pancreatitis, acute cholecystitis, among others. EMERGENCY DEPARTMENT PROCEDURES: MEDICAL DECISION MAKING: There is no leukocytosis or concerning anemia. There is a normal platelet count. No renal failure or significant electrolyte abnormality. No concerning liver enzyme elevation. ECG shows a normal sinus rhythm, no ischemia or dysrhythmia. Cardiac enzyme testing x 1 is not consistent with acute cardiac injury. Lipase is slightly elevated, consistent with some potential pancreatic inflammation. Urinalysis did not show infection. Abdominal and pelvis CT did not show any findings of free air or abscess. The biliary stent appeared to be in position. The patient has not required anything for pain. She did not appear toxic, she was not febrile. I did speak with general surgery. The patient is going to be hospitalized for surgical intervention. The patient is aware of the need for a hospital stay. I did speak with case management. Prior/Outside records/notes reviewed: None ECG per my interpretation: Indication was epigastric pain. The ECG shows a normal sinus rhythm with a rate of 79. There is no ST elevation, no PVCs. The QTc is 435. Continuous Cardiac Monitoring per my interpretation: An order was placed for continuous cardiac monitoring. The monitor shows a rate of 73 with normal sinus rhythm. Imaging/x-ray results per my interpretation: Chronic Medical/Social conditions affecting care: Recent biliary stent placement. Care/Management discussed with: General Surgery-Dr. Reynolds. Level of care consideration(s): After review of the information above and other included data: --I believe the patient requires escalation of care to admission DISPOSITION: Admission Past Med/Surg History Problem List (Updated 07/30/24 @ 22:25 by Dallas Ashby MD) History of biliary stent insertion (Acute) Biliary colic (Acute) Epigastric abdominal pain (Acute) Cholelithiasis Dysmenorrhea Diabetes mellitus Chronic venous insufficiency Hearing deficit Encounter for annual routine gynecological examination Irritable bowel syndrome (Acute) Obesity (Acute) Medical History (Updated 07/30/24 @ 22:25 by Dallas Ashby MD) Oligomenorrhea Polycystic ovarian syndrome Chest wall pain Surgical History S/P ear surgery Hernia, umbilical History of tympanoplasty Hx of tonsillectomy Myringotomy tube status Family History Grandmother Diabetes Denies family history of Ovarian cancer Breast cancer Social History Smoking Status: Never smoker Do You Dip or Chew Tobacco: No; Hx Alcohol Use: No Hx Substance Use: No Preferred Language: Ecuadorean Communication Ability: Effective Mechanical Tech Required: No Beliefs That Will Affect Care: None Current Living Situation: Spouse Other Information That Helps Us Care for You: No Feels Safe at Home: Yes Safety Concerns: Feels Safe At This Time Assistive Devices: Hearing Aid - Bilateral Allergies Allergies Allergy/AdvReac Type Severity Reaction Status Date / Time No Known Allergies Allergy Verified 11/03/23 09:54 Home Meds Home Medications Medication Instructions Recorded Confirmed fluoxetine 10 mg capsule (Prozac) 10 mg PO DAILY 04/30/21 11/03/23 hydroxyzine HCl 10 mg tablet 10 mg PO ONCE PRN 08/19/22 11/03/23 tirzepatide [Mounjaro] subcut 08/25/22 11/03/23 cyanocobalamin (vitamin B-12) sublingual 10/24/23 11/03/23 topiramate 25 mg tablet mg PO 10/24/23 11/03/23 Previous Rx's Medication Instructions Recorded sucralfate 100 mg/mL oral 10 ml PO QID #420 mL 07/07/24 suspension (Carafate) Results & Data (ED) Vital Signs Vital Signs - 24 hr 07/30/24 12:36 07/30/24 14:12 07/30/24 14:12 Temperature 36.7 C Temperature Source Skin Pulse Rate 89 Pulse Rate [Apical] 73 Respiratory Rate 20 18 16 Respiratory Effort / Characteristics Non-Labored Spontaneous Non-Labored Respiratory Depth Normal Normal Respiratory Pattern Regular Blood Pressure 110/84 Blood Pressure [Right Arm] 114/68 Blood Pressure Mean 92 Blood Pressure Mean [Right Arm] 83 Pulse Oximetry 100 100 100 Oxygen Delivery Method Room Air Room Air Room Air Sepsis Recent Fever Within 48 Hours No Sepsis New/Unexplained Change in Mental Status N/A Sepsis Action Taken by Nursing No Action Required 07/30/24 14:30 Temperature Temperature Source Pulse Rate 73 Pulse Rate [Apical] Respiratory Rate Respiratory Effort / Characteristics Respiratory Depth Respiratory Pattern Blood Pressure Blood Pressure [Right Arm] Blood Pressure Mean Blood Pressure Mean [Right Arm] Pulse Oximetry Oxygen Delivery Method Sepsis Recent Fever Within 48 Hours Sepsis New/Unexplained Change in Mental Status Sepsis Action Taken by Residential Medications Current Medication List: was personally reviewed by me Laboratory Data Attestation: I reviewed the patient's lab results. 07/30/24 12:51 07/30/24 12:51 Lab Results 07/30/24 07/30/24 Range/Units 12:48 12:51 WBC 7.07 (4.8-10.8) K/ul RBC 4.62 (4.20-5.40) M/uL Hgb 14.0 (12.0-16.0) g/dl Hct 43.8 (37.0-47.0) % MCV 94.8 (80.0-100.0) fL MCH 30.3 (25.0-34.0) pg MCHC 32.0 (32.0-36.0) g/dL RDW Std Deviation 49.6 H (36.4-46.3) fL RDW Coeff of Demetrius 14.2 (11.5-14.5) % Plt Count 245 (130-400) K/uL MPV 10.1 (9.4-12.4) fL Immature Gran % (Auto) 0.4 % Neut % (Auto) 61.2 % Lymph % (Auto) 31.8 % [place] % (Auto) 5.1 % Eos % (Auto) 1.1 % Baso % (Auto) 0.4 % Neut # (Auto) 4.32 (1.40-6.50) K/uL Lymph # (Auto) 2.25 (1.20-3.40) K/uL [place] # (Auto) 0.36 (0.11-0.59) K/uL Eos # (Auto) 0.08 (0.00-0.50) K/uL Baso # (Auto) 0.03 (0.00-0.20) K/uL Immature Gran # (Auto) 0.03 (0.01-0.20) K/uL Sodium 138 (136-145) mmol/L Potassium 3.7 (3.5-5.1) mmol/L Chloride 108 H (98-107) mmol/L Carbon Dioxide 21 (21-32) mmol/L Anion Gap 9 (3-11) BUN 11 (6-23) mg/dl Creatinine 0.62 (0.6-1.2) mg/dl Est Cr Clr Drug Dosing 84.8 ml/min eGFR 115.38 BUN/Creatinine Ratio 17.7 (10-20) Glucose 78 (70-99(Fasting)) mg/dl Calcium 9.4 (8.6-10.3) mg/dl Total Bilirubin 0.9 (0.2-1.0) mg/dl Direct Bilirubin 0.2 (0-0.2) mg/dl AST 15 (13-39) U/L ALT 15 (7-52) U/L Alkaline Phosphatase 55 (34-104) U/L Troponin I High Sens < 2.3 (0-14) pg/ml Total Protein 8.2 (6.0-8.3) gm/dl Albumin 4.8 (3.4-5.0) gm/dl Globulin 3.4 (2.5-4.0) gm/dl Albumin/Globulin Ratio 1.4 (0.9-2) Lipase 98 H (11-82) U/L Urine Color Yellow Urine Appearance Clear (Clear) Urine pH 5.5 (4.5-7.5) Ur Specific [place] 1.005 (1.000-1.030) Urine Protein Negative (Negative) Urine Glucose (UA) Negative (Negative) Urine Ketones Negative (Negative) Urine Blood Negative (Negative) Urine Nitrite Negative (Negative) Urine Bilirubin Negative (Negative) Urine Urobilinogen Negative (Negative) Ur Leukocyte Esterase Negative (Negative) Administered Medications Insulin Aspart (Insulin Aspart Per Unit Charge) 0 units SC ACHS [facility] Stop: 08/29/24 16:29 Last Admin: 07/30/24 21:17 Dose: Not Given Documented By: EM Co-signed By: CITLALY Admin: 07/30/24 17:34 Dose: Not Given Documented By: RT Morphine Sulfate (Morphine Sulfate 2 Mg/Ml [place]) 2 mg IV Q3H PRN PRN Reason: Mod-Sev Pain (Scale 4-10) Stop: 08/13/24 15:49 Last Admin: 07/30/24 19:34 Dose: 2 mg Documented By: Admin: 07/30/24 16:07 Dose: 2 mg Documented By: RT Oxycodone/Acetaminophen (Oxycodone/Acetaminophen 5mg/325mg Tab) 2 tab PO Q4H PRN PRN Reason: SEVERE Pain (7,8,9,10) Stop: 08/13/24 15:49 Last Admin: 07/30/24 22:16 Dose: 2 tab Documented By: EM Discontinued Medications Ioversol (Optiray 320 100ml) 94 ml IV ONCE ONE Stop: 07/30/24 13:46 Last Admin: 07/30/24 13:46 Dose: 94 ml Documented By: KIT Imaging Data Radiologist's Impression: Abdomen/Pelvis CT 07/30/24 12:56 CT abd pelvis IV con only CLINICAL HISTORY: RUQ PAIN, RECENT ERCP WTIH STENTING TECHNIQUE: Helical axial images of the abdomen and pelvis were obtained and displayed. Automated dose lowering techniques and/or adjustment according to patient size were utilized for this exam. This exam was performed with intravenous contrast. CT DOSE: 406.9 mGy.cm COMPARISON: Comparison is made to CT abdomen pelvis 09/09/2023 FINDINGS: Lower chest: No acute abnormality. Liver: Unremarkable. No focal lesions are seen. Gallbladder and biliary tree: Gas is noted in the gallbladder. A common bile duct stent is seen with pneumobilia. An adjacent radiodensity likely represents a stent as well. Pancreas: Unremarkable, no focal lesions. Spleen: Unremarkable. Adrenals: Unremarkable. Kidneys and ureters: Unremarkable. Bladder: Limited evaluation due to underdistention. Reproductive organs: Unremarkable. Bowel: The appendix is normal. There is a small hiatal hernia. Lymph nodes Retroperitoneal: Unremarkable. Pelvic: Unremarkable. Mesenteric: Unremarkable. Peritoneum: Normal. Vessels: Unremarkable. Abdominal wall: Unremarkable. Bones: Unremarkable. IMPRESSION: There is a common bile duct stent with pneumobilia and gas in the gallbladder. ACT 112: Negative or not required by law. Electronically signed by: Raj Grant M.D. 07/30/2024 2:02 PM Discharge Plan Visit Data Chief Complaint: Abdominal Pain Stated Complaint: MIDDLE ABD TO AROUND THE BACK PAIN, GALLBLADDER ED Provider: Dallas Ashby Discharge Problem: Epigastric abdominal pain, Biliary colic, History of biliary stent insertion Patient Disposition: Admitted As Inpatient Condition: Good Discharge Instructions Interventions: ED Discharge Assessment Last Done: 07/30/24 15:40
--- NOTE | 2024-07-30 14:55 | History & Physical Report ---
Date of Service July 30, 2024 Assessment & Plan (1) Diabetes mellitus: Plan: Type two diabetes Will consult pharmacy for glycemic management takes Mounjaro however has been on back order and has not taken for a few weeks. (2) Cholelithiasis: Plan: Patient with abdominal pain and found to have acute cholecystitis, cholelithiasis, and a CBD stone 07/09/24. She was transferred to [facility] and underwent two stent placements by Dr Torres (CBD and pancreas per pt , [facility] Scheduled to be seen as an outpatient but was directed to come to the ER after calling and reporting chills, and an increase in abdominal pain that started two days ago which is described as pressure that is unrelenting with associated fever and chills overnight. She underwent an abdominal /pelvis CT scan while in the ER that is showing: a common bile duct stent with pneumobilia and gas in the gallbladder. WBC and LFT wnl. Lipase mildly elevated at 98. Urinalysis showing no concerns for UTI. On exam pt is in NAD, TTP RUQ and RUL. VSS afebrile. Will admit patient to surgical service and scheduled for a laparoscopic cholecystectomy with it applications manager surgeon Dr. Reynolds 07/31/24. Patient is in agreement. May have clear liquids tonight, NPO MN IV antiemetic PRN IV antibiotics will be ordered pre operatively IV analgesic PRN History of Present Illness Chief Complaint: abdominal pain RUQ Primary Care Provider: Jeovanny Nunez MD Patient is a pleasant 39 yo female with PMH of type 2 diabetes, IBS, that presented to the [facility] ER July 09 with abdominal pain and found to have acute cholecystitis and a CBD stone. She was transferred to [facility] and underwent two stent placements by Dr Torres (CBD and pancreas per pt , no access to [facility] charts). She was schedule to be seen as an outpatient this by [facility] surgery but was directed to come to the ER after calling and reporting chills, and an increase in abdominal pain that two days ago which is described as pressure that is unrelenting and reports she does not know how long she can continue with the pain. Endorses associated fever and chills overnight, no n/v. Denies blood thinners, prior abdominal surgeries include umbilical hernia repair. Reports last BM yesterday and stools have been loose since stent placement. Allergies Allergy/AdvReac Type Severity Reaction Status Date / Time No Known Allergies Allergy Verified 11/03/23 09:54 Home Medications Medication Instructions Recorded Confirmed Type fluoxetine 10 mg capsule (Prozac) 10 mg PO DAILY 04/30/21 11/03/23 History hydroxyzine HCl 10 mg tablet 10 mg PO ONCE PRN 08/19/22 11/03/23 History tirzepatide [Mounjaro] subcut 08/25/22 11/03/23 History cyanocobalamin (vitamin B-12) sublingual 10/24/23 11/03/23 History topiramate 25 mg tablet mg PO 10/24/23 11/03/23 History sucralfate 100 mg/mL oral 10 ml PO QID #420 mL 07/07/24 Rx suspension (Carafate) Past Med/Surg History Problem List (Updated 07/30/24 @ 22:25 by Dallas Ashby MD) History of biliary stent insertion (Acute) Biliary colic (Acute) Epigastric abdominal pain (Acute) Cholelithiasis Dysmenorrhea Diabetes mellitus Chronic venous insufficiency Hearing deficit Encounter for annual routine gynecological examination Irritable bowel syndrome (Acute) Obesity (Acute) Medical History (Updated 07/30/24 @ 22:25 by Dallas Ashby MD) Oligomenorrhea Polycystic ovarian syndrome Chest wall pain Surgical History S/P ear surgery Hernia, umbilical History of tympanoplasty Hx of tonsillectomy Myringotomy tube status Family History Grandmother Diabetes Denies family history of Ovarian cancer Breast cancer Social History Smoking Status: Never smoker Do You Dip or Chew Tobacco: No; Hx Alcohol Use: No Hx Substance Use: No Preferred Language: Kuwaiti Communication Ability: Effective Press Helper Required: No Beliefs That Will Affect Care: None Current Living Situation: Spouse Other Information That Helps Us Care for You: No Feels Safe at Home: Yes Safety Concerns: Feels Safe At This Time Assistive Devices: Hearing Aid - Bilateral Review of Systems Constitutional: + fever and + chills Respiratory: no dyspnea Cardiovascular: no chest pain Gastrointestinal: + abdominal pain, + nausea and + diarrhe a/loose stools; no vomiting Genitourinary: no dysuria Musculoskeletal: no muscle weakness Integumentary: no rash Psychiatric: no confusion Physical Exam Constitutional: cooperative; no acute distress Respiratory: normal respiratory effort and able to speak in complete sentences; no respiratory distress Cardiovascular: Rate/Rhythm: regular rate Gastrointestinal (Abdomen): Inspection/Auscultation: abdomen not distended Percussion/Palpation: + abdomen tender and abdomen soft Musculoskeletal: no cyanosis or clubbing, extremities motor strength 5/5 Psychiatric: A+Ox3, euthymic affect Results & Data Results & Data Vital Signs (Past 12 Hours) Vital Signs Temp Pulse Pulse Resp BP BP Pulse Ox 07/30/24 14:30 73 07/30/24 14:12 16 100 07/30/24 14:12 73 18 114/68 100 07/30/24 12:36 98.1 F 89 20 110/84 100 O2 Del Method 07/30/24 14:30 07/30/24 14:12 Room Air 07/30/24 14:12 Room Air 07/30/24 12:36 Room Air Diagnostic Findings [place] [phone] CT Scan Report Patient: WAQAS MICHELLE Admit Date: 07/30/24 MR#: [id number] Address1: [address] [place] [address] Acct ID:[id number] Address2: Date: 1985 [facility] Zip: [place] [address] Age: 39 Location: ED Sex: F Room/Bed: Att Phy: Diagnosis: MIDDLE ABD TO AROUND THE BACK PAIN, GALLBLADDER Sita Phy: Jeovanny Nunez MD Service Date: 07/30/24 [facility] Phy: Interpreting Phy: Raj Grant MDAdmit Phy: Ordering Phy: Marie Carlson PA cc: ~ CT abd pelvis IV con only CLINICAL HISTORY: RUQ PAIN, RECENT ERCP WTIH STENTING TECHNIQUE: Helical axial images of the abdomen and pelvis were obtained and displayed. Automated dose lowering techniques and/or adjustment according to patient size were utilized for this exam. This exam was performed with intravenous contrast. CT DOSE: 406.9 mGy.cm COMPARISON: Comparison is made to CT abdomen pelvis 09/09/2023 FINDINGS: Lower chest: No acute abnormality. Liver: Unremarkable. No focal lesions are seen. Gallbladder and biliary tree: Gas is noted in the gallbladder. A common bile duct stent is seen with pneumobilia. An adjacent radiodensity likely represents a stent as well. Pancreas: Unremarkable, no focal lesions. Spleen: Unremarkable. Adrenals: Unremarkable. Kidneys and ureters: Unremarkable. Bladder: Limited evaluation due to underdistention. Reproductive organs: Unremarkable. Bowel: The appendix is normal. There is a small hiatal hernia. Lymph nodes Retroperitoneal: Unremarkable. Pelvic: Unremarkable. Mesenteric: Unremarkable. Peritoneum: Normal. Vessels: Unremarkable. Abdominal wall: Unremarkable. Bones: Unremarkable. IMPRESSION: There is a common bile duct stent with pneumobilia and gas in the gallbladder. ACT 112: Negative or not required by law. Electronically signed by: Raj Grant M.D. 07/30/2024 2:02 PM Dictated: 07/30/24 1358 Transcribed: 07/30/24 1358 PG Care Time/CCT Total # of Minutes Spent Total Time Spent with Patient: Total time spent is greater than 50% in coordination of care (as documented) at patient's floor/unit and/or counseling patient: Coding Level of Care Code 56726 INT INP/OBS CARE MIN Diagnoses Diabetes mellitus E11.9 Cholelithiasis K80.20
[2024-07-30] MEDS ORDERED: DEXTROSE 50% 50 ML SYRINGE IV PRN (15:50)
[2024-07-30] MEDS ORDERED: ACETAMINOPHEN 1,000 MG/100 ML VIAL IV PRN (15:50)
[2024-07-30] MEDS ORDERED: GLUCOSE 10 TAB/TUBE PO PRN (15:50)
[2024-07-30] MEDS ORDERED: PHARMACY GLYCEMIC MGMT CONSULT PRN (15:50)
[2024-07-30] MEDS ORDERED: GLUCOSE 40% GEL 15 GM TUBE PO PRN (15:50)
[2024-07-30] MEDS ORDERED: CARBOHYDRATES FOR HYPOGLYCEMIA PO PRN (15:50)
[2024-07-30] MEDS ORDERED: ONDANSETRON INJ 2 MG/ML 2 ML VIAL IV PRN ×2 (15:50)
[2024-07-30] MEDS ORDERED: GLUCAGON FOR INJ 1 MG VIAL SQ PRN (15:50)
[2024-07-30] MEDS ORDERED: oxyCODONE/ACETAMINOPHEN 5mg/325mg TAB PO PRN (15:50)
[2024-07-30] MEDS: MoRPHine SULFATE 2 MG/ML CARP IV PRN (16:07)
[2024-07-30] MEDS: INSULIN ASPART PER UNIT CHARGE SC SCH (17:34)
--- OUTSIDE RECORDS SUMMARY | 2024-07-30 18:20 | External Medical Summary | Summary of Care ---
Author Name Unknown Organization [facility] Address [address] [place] [address] Phone [phone] Care Team Providers Care Community Marketing Manager Name Role Phone Carmen Sierra PA-C Primary Care Provider [phone] Reason for Visit * Reason Onset Date Comments Appointment 07/11/2024 Encounter Details Date Type Department Care Team (Late st Contact Info) Description 07/11/2024 Telephone Access Center, [place] [address] [facility] *DO NOT REMOVE THIS DEPARTMENT* [place] [phone] Services, Scheduling [address] [place] [address] Appointment Allergies No known active allergiesdocumented as of this encounter (statuses as of 07/11/2024) Medications Amoxicillin-Pot Clavulanate 875-125 MG Oral Tablet (Augmentin) Take 1 Tablet by mouth in the morning and 1 Tablet before bedtime. Do all this for 19 doses. Start on the evening of 07/11/24. 19 Tablet 4 07/21/20 Active oxyCODONE HCl 5 MG Oral Tablet (Oxy IR) Take 1 Tablet by mouth every 6 hours as needed for Pain, Moderate or Pain, Severe. 16 Tablet 4 Active Acetaminophen 325 MG Oral Tablet (Tylenol) Take 2 Tablets by mouth every 6 hours as needed for Pain, Mild. 30 Tablet 4 Active B-12-SL 1000 MCG Sublingual Tablet Sublingual (Cyanocobalamin) Indications:B12 deficiency Place 1,000 mcg under the tongue in the morning. 90 Tablet 3 4 Suspended Famotidine 20 MG Oral Tablet (Pepcid)Indicati ons:Acute gastritis, presence of bleeding unspecified, unspecified gastritis type Take 1 Tablet by mouth in the morning and 1 Tablet before bedtime. 180 Tablet 3 4 Suspended FLUoxetine HCl 10 MG Oral Capsule (PROzac)Indicati ons:Mood disorder (HCC) TAKE 1 CAPSULE BY MOUTH EVERY MORNING 90 Capsule 3 4 Suspended oxyBUTYnin Chloride ER 5 MG Oral Tablet Extended Release 24 HourIndications: OAB (overactive bladder) Take 1 Tablet by mouth in the morning. Do not cut, crush or chew. 30 Tablet 11 4 Suspended hydrOXYzine HCl 10 MG Oral Tablet (Atarax) take 1 tablet by mouth every 6 hours if needed for anxiety 40 Tablet 2 4 Suspended Mounjaro 5 MG/0.5ML Subcutaneous Solution Pen-injector (Tirzepatide)Ind ications:Type 2 diabetes mellitus with hemoglobin A1c goal of less than 7.0% (HCC) Inject 5 mg under the skin once a week. 2 mL 5 4 Suspended SUMAtriptan Succinate 100 MG Oral Tablet Take 1 Tablet by mouth as needed for Migraine (take 1 tab by mouth at start of headache, may repeat once after 2 hours; may use up to 2 days per week). 10 Tablet 5 4 Suspended Topiramate 100 MG Oral Tablet (topAMAX) Take 1 Tablet by mouth every night at bedtime. 30 Tablet 5 4 Suspended documented as of this encounter (statuses as of 07/11/2024) Active Problems Problem Noted Date Diagnosed Date Choledocholithiasis 07/10/2024 Cholelithiasis 07/10/2024 Elevated bilirubin 07/10/2024 Elevated liver enzymes 07/10/2024 Irritable bowel syndrome 07/10/2024 Polycystic ovarian syndrome 07/10/2024 Type 2 diabetes mellitus wit h hemoglobin A1c goal of less than 7.0% 12/09/2022 Mood disorder 10/27/2021 Perforation of right tympanic membrane 9 Status post mastoidectomy 10/10/2017 Adenoidal hypertrophy 09/01/2017 Hearing loss, mixed, bilateral 09/01/2017 Chronic mastoiditis of right side 09/01/2017 Infertility, female 12/31/2015 Allergic reaction 01/10/2014 Obesity, Class II, BMI 35-39.9, isolated (see ac tual BMI) 01/01/2014 Overview (01/01/2014): bmi= 35.54 01/01/14 Umbilical hernia 08/25/2012 Ventral hernia 08/25/2012 Knee pain, left 01/04/2012 Patellofemoral pain syndrome 01/04/2012 Overview (01/04/2012): left Lumbago 02/21/2007 FACET ARTHROPATHY, LUMBAR 02/21/2007 documented as of this encounter (statuses as of 07/11/2024) Resolved Problems Problem Noted Date Diagnosed Date Resolved Date Headache 07/10/2024 07/11/2024 Class 2 severe obesity due t o excess calories with serious comorbidity and body mass index (BMI) of 37.0 to 37.9 in adult 10/18/2023 4 Hyperinsulinemia 10/05/2022 07/11/2024 Type 2 diabetes mellitus wit h hemoglobin A1c goal of less than 7.0% 08/06/2022 10/05/2022 Prediabetes 06/07/2022 07/11/2024 Overview: Per Prediabetes protocol Dermatitis of ear canal 12/11/201811/22 Acute otitis media 02/21/2018 0 Obesity, Class I, BMI 30.0-3 4.9 (see actual BMI) 01/04/2012 05/02/2020 Overview (01/04/2012): bmi= 30.71 01/04/12 Tobacco use disorder 10/14/2009 014 CHRONIC TOBACCO MUCOSITIS 10/14/2009 Dysfunction of eustachian tube 10/14/2009 05/02/2020 ADVANCE DIRECTIVE INFORMATION 02/08/2006 05/02/2020 Overview (02/08/2006): No, Advance Directive brochure given to patient. STREP SORE THROAT 10/11/2005 03/21/2014 ACUTE PHARYNGITIS 10/11/2005 09/19/2008 Overview (09/19/2008): Resolved per Benign Acute Dxs Protocol #3 ACUTE URI NOS 10/11/2005 09/12/2008 Overview (09/12/2008): Resolved per Benign Acute Dxs Protocol #3 documented as of this encounter (statuses as of 07/11/2024) Immunizations Name Administration Dates Next Due Covid-19 Ad26, Single Dose ([place]/J&J) 10/03/2020 MMR - Measles/Mumps/Rubella Vaccine 07/08/2017 PPD 09/02/2009,05/01/2007 Seasonal Influenza Vac., MDV , IM, 0.5 mL (Fluzone) 05/08/2010,05/13/2008 Seasonal Influenza Virus Vac cine, Unspecified Formulation 04/26/2017,05/08/2010,05/07/2010,2007 Seasonal Influenza, PF, 6 M & above, IM , (FluLaval or Fluzone) 05/19/2019,05/23/2018 Seasonal Influenza, Trivalen t, (IIV3), PF, (Fluzone) 04/07/2024 TDAP (age 10 and older)(Boostrix) 04/26/2017,02/2007 TDAP, Age 7 and older, IM (Adacel) 05/01/2007 documented as of this encounter Social History Tobacco Use Types Packs/Day Years Used Date Smoking Tobacco: Former Cigarettes 0.5 5 0 09/06/2005 - 09/06/2010 Smokeless Tobacco: Never Alcohol Use Standard Drinks/Week Comments Yes 0 (1 standard drink = 0.6 oz pur e alcohol) rarely PHQ-2 Answer Date Recorded PHQ Adult Total Score 0 12/09/2022 Hunger Vital Sign Answer Date Recorded Within the past 12 months, y ou worried that your food would run out before you got the money to buy more. Never true 12/10/19 23 Within the past 12 months, t he food you bought just didn't last and you didn't have money to get more. 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 Answer Date of Assessment Author Yes 07/10/2024 8:55 AM Aiden Arguello RN * Are you blind or do you have serious difficulty seeing, even when wearing glasses? Answer Date of Assessment Author No 07/10/2024 8:55 AM Aiden Arguello RN * Do you have serious difficulty walking or climbing stairs? (5 years old or older) Answer Date of Assessment Author No 07/10/2024 8:55 AM Aiden Arguello RN * Do you have difficulty dressing or bathing? (5 years old or older) Answer Date of Assessment Author No 07/10/2024 8:55 AM Aiden Arguello RN * Because of a physical, mental, or emotional condition, do you have difficulty doing errands alone such as visiting a doctors office or shopping? (15 years old or older) Answer Date of Assessment Author Yes 07/10/2024 8:55 AM Aiden Arguello RN documented as of this encounter Mental Status * Because of a physical, mental, or emotional condition, do you have serious difficulty concentrating, remembering, or making decisions? (5 years old or older) Answer Entry Date Author No 07/10/2024 8:55 AM Aiden Arguello RN documented in this encounter Miscellaneous Notes * Telephone Encounter - Asha Mcdonnell OSA - 07/11/2024 1:11 PM EST Order RETURN APPT [IP355] (Order [id number]) Waqas Ybarrapatricia 07/10/2024 8:46 AM Admission Description: 39 year old female Department: 6B [facility] Message Patient Name: WAQAS CAMPA([id number]) Sex: Female : 1985 PCP: CARMEN SIERRA Center: [facility] Types of orders made on 07/11/2024: Communication, Diet, IP Post Discharge , Lab, Medications, Point of Care Testing, Point of Care Testing - Unsolicited Results Order Date:07/11/2024 Ordering User:JESSE CRUMP [[id number]] Attending Provider:Jose Newell MD [[id number]] Authorizing Provider: Jesse Crump MD [[id number]] Department:6B [facility][[id number]] Order Specific Information Order: RETURN APPT [CUSTOM: IP355] Order #: [id number]: 1 Priority: Routine Class: Nursing Unit Department (Single Entry) -> Gastroenterology Appt Needed Within: (Specify # of Days, Weeks, Months) -> 2 Wks Tests Needed Prior to Appt -> Liver function tests Released on: 07/11/2024 1:05 PM Priority: Routine Class: Nursing Unit Department (Single Entry) -> Gastroenterology Appt Needed Within: (Specify # of Days, Weeks, Months) -> 2 Wks Tests Needed Prior to Appt -> Liver function tests Released on: 07/11/2024 1:05 PM Order Information Date and Time Department Released By/Authorizing 07/11/2024 1:[address] [place] [address] Jesse Crump MD (auto-released) Order Providers Authorizing Provider Encounter Provider ([id number]) Jesse Crump MD None Priority and Order Details Priority Class Routine Nursing Unit Quantity Ordering Quantity 1 Collection Information Original Order Ordered On Ordered By 07/11/2024 1:05 PM Jesse Crump MD Release Information Released On Released By 07/11/2024 1:05 PM Jesse Crump MD (auto-released) Order Questions Question Answer Department (Single Entry) Gastroenterology Appt Needed Within: (Specify # of Days, Weeks, Months) 2 Wks Note: If 'Other' is Selected, Enter a Comment Tests Needed Prior to Appt Liver function tests Note: Tests Indicated will be Scheduled at a [facility] Facility Encounter View Parent Encounter Reprint Requisition RETURN APPT (Order #[id number]) on 07/11/24 Detailed Information Priority and Order Details Reference Links Acct Guarantor Acct Type [id number] WAQAS CAMPA Personal/Family [1] [id number] KERA CAMPAY Jimenez Personal/Family [1] [id number] KERA CAMPAY Jimenez Personal/Family [1] Service Location Name Address [address] [place] [phone] Currently Active Insurance Payor Plan Subscriber Member ID GHP COMMERCIAL GHP CHOICE NO REF 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 [address] [place] [address] Ronit Torres MD [address] [place] [address] 08/28/2024 9:00 AM EST Hospital Encounter ENDO [facility], Endoscopy Room [facility] [address] [place] [phone] Lakhwinder Torres DO [address] [place] [address] 08/28/2024 9:00 AM EST - 08/28/2024 9:30 AM EST Surgery ENDO [facility], Endoscopy Room [facility] [address] [place] [phone] Lakhwinder Torres, DO [address] [place] [address] ENDOSCOPIC RETROGRADE CHOLANGIOPANCREATOGRAPHY (ERCP) W/STENT REMOVAL AND EXCHANGE; INC DILATION, GUIDE WIRE AND SPHINCTEROTOMY 09/17/2024 8:40 AM EST Telemedicine Neurology Abel [facility] [place] [address] [place] [address] Opal Guzman DO [address] [place] [address] 10/18/2024 10:00 AM EDT Office Visit [facility] [address] [place] [address] Carmen Sierra PA-C [address] [place] [address] 11/12/2024 10:40 AM EDT Office Visit Nutrition & Weight Management, [facility] [address] [facility] [place] [address] Aretha Armstrong [facility]-C [facility] [place] [address] 01/07/2025 10:00 AM EDT Office Visit Audiology, [place] [address] [place] [address] Donna Marshall Au.D. [address] [place] [address] 01/07/2025 10:30 AM EDT Office Visit Otolaryngology/ Head & Neck/Facial Plastic Surgery [address] [place] [address] Lc Flores MD [address], [place] [id number] Scheduled Procedures Name Priority Associated Diagnoses Date/Ti me ENDOSCOPIC RETROGRADE CHOLANGIOPANCREATOGRAPHY (ERCP) W/STENT REMOVAL AND EXCHANGE; INC DILATION, GUIDE WIRE AND SPHINCTEROTOMY Encounter for removal of biliary stent 08/28/2024 9:00 AM EST Health Maintenance Due Date Last Done Comments Lipid Panel 1985 Pneumococcal Vaccine: Pediatrics (0 to 5 Years) and At-Risk Patients (6 to 64 Years) (1 of 2 - PCV) 02/27/1990 HIV Screening 02/27/1999 Diabetic Eye Exam 02/27/2002 Diabetic Foot Exam 02/27/2002 Hepatitis C Screening 02/27/2002 Hepatitis B Vaccine (1 of 3 - 19+ 3-dose series) 02/27/2003 Pap Smear 09/17/2022 09/17/2019, 11/23, 10/09/2013, Additional history exists Depression Screening 12/10/2023 12/09/2022 Mammogram 2024 COVID-19 Vaccine ( season) 2024 10/03/2020 Albumin/Creatinine Ratio 09/30/2024 10/01/2023 HbA1c 01/08/2025 07/10/2024, 03/0 03/2024, 04/20/2022 GFR 07/11/2025 07/11/2024, 06/24, 12/02/2022, Additional history exists DTap/Tdap Vaccines (4 - Td or Tdap) 04/26/2027 04/26/2017, 05/01/2007, 05/01/2007 Cervical Cancer Screening 08/19/2027 HPV/Co-Test 08/19/2027 08/19/2022 Influenza Vaccine (FLU shot) Completed , 05/19/2019, 05/23/2018, Additional history exists HPV (Gardasil) Vaccine Aged Out No lo nger eligible based on patient's age to complete this topic MENINGOCOCCAL (MENACTRA/MENVEO) Aged Out No longer eligible based on patient's age to complete this topic documented as of this encounter Medical Devices Implanted Type Area Grinder Carbon Plant Device Identifier Shelf Expiration Date Model / Serial / Lot Tube Ventilation Mitchellmaya Halled - [id number] Implanted:Qty: 1 on 01/08/2016 by Emile Cat DO at OR [facility] Left: Ear GYRUS : ENT 11/20/2025 [id number] / / [id number] Patch Hernia Ventralex Med - [id number] Implanted:Qty: 1 on 04/21/2016 by Ronit Torres MD at OR [facility] N/A: Abdomen CR BARD : DAVOL 03/21/2017 [id number] / / [id number] System Ttp Vario Onofre [id number] - [id number] Implanted:Qty: 1 on 09/29/2021 by Lc Flores MD at OR [facility] [place] Left: Ear [employer] 08/25/2025 [id number] / / [id number] Stent Viabil Biliary [id number] - [id number] Implanted:Qty: 1 on 07/10/2024 by Lakhwinder Torres DO at OR [facility] [place] ABDIRASHID [id number] 12/12/2026 [id number] / [id number] / [id number] documented as of this encounter Advance Directives * Full Code (Latest Code Status on File) Date Activated Date Inactivated Comments 07/10/2024 9:34 AM This order re flects the patients wishes and were consensually agreed upon. Question Answer Comments Discussion of Advance Directives occurred with: Patient Does the patient have a Living Will? No Does the patient have Health Care Power of Attor nemo? No Care Teams Community Marketing Manager Relationship Specialty Start Date End Date Carmen Sierra PA-C [address] [facility] [place] [address] PCP - General Physician Java Software Architect 05/09/24 documented as of this encounter
--- OUTSIDE RECORDS SUMMARY | 2024-07-30 18:20 | External Medical Summary | Summary of Care ---
Author Name Unknown Organization [facility] Address [address] [place] [address] Phone [phone] Care Team Providers Care Clinical Abstractor Name Role Phone Carmen Manuel PA-C Primary Care Provider [phone] Reason for Visit * Auth/Cert Specialty Diagnoses / Procedures Referred By Contpipe t Referred To Contact Diagnoses abd pain Jose Newell MD [address] [place] [address] Phone: tel: fax: Admissions [address] [address] Referral ID Status Reason Start Date Expiration Date Visits Re quested Visits Authorized [id number] Encounter Details Date Type Department Care Team (Latest Contact Info) Description 07/10/2024 8:46 AM EST - 07/11/2024 2:19 PM EST Hospital Encounter [id number] [facility], [facility] 6th Floor [address] [place] [address] Jose Newell MD [address] [place] [id number] Albert Mora MD [address] [place] [phone] Clemente Hoang DO [address] [place] [id number] Various: ERCP,KRAVS Discharge Disposition: Home - Self Care Allergies No known active allergiesdocumented as of this encounter (statuses as of 07/12/2024) Medications B-12-SL 1000 MCG Sublingual Tablet Sublingual (Cyanocobalamin)I ndications:B12 deficiency Place 1,000 mcg under the tongue in the morning. 90 Tablet 3 4 Active Famotidine 20 MG Oral Tablet (Pepcid)Indicatio ns:Acute gastritis, presence of bleeding unspecified, unspecified gastritis type Take 1 Tablet by mouth in the morning and 1 Tablet before bedtime. 180 Tablet 3 4 Active FLUoxetine HCl 10 MG Oral Capsule (PROzac)Indicatio ns:Mood disorder (HCC) TAKE 1 CAPSULE BY MOUTH EVERY MORNING 90 Capsule 3 4 Active oxyBUTYnin Chloride ER 5 MG Oral Tablet Extended Release 24 HourIndications:O AB (overactive bladder) Take 1 Tablet by mouth in the morning. Do not cut, crush or chew. 30 Tablet 11 4 Active hydrOXYzine HCl 10 MG Oral Tablet (Atarax) take 1 tablet by mouth every 6 hours if needed for anxiety 40 Tablet 2 4 Active Mounjaro 5 MG/0.5ML Subcutaneous Solution Pen-injector (Tirzepatide)Daija cations:Type 2 diabetes mellitus with hemoglobin A1c goal of less than 7.0% ([facility]) Inject 5 mg under the skin once a week. 2 mL 5 4 Active SUMAtriptan Succinate 100 MG Oral Tablet Take 1 Tablet by mouth as needed for Migraine (take 1 tab by mouth at start of headache, may repeat once after 2 hours; may use up to 2 days per week). 10 Tablet 5 4 Active Topiramate 100 MG Oral Tablet (topAMAX) Take 1 Tablet by mouth every night at bedtime. 30 Tablet 5 4 Active Amoxicillin-Pot Clavulanate 875-125 MG Oral Tablet (Augmentin) Take 1 Tablet by mouth in the morning and 1 Tablet before bedtime. Do all this for 19 doses. Start on the evening of 07/11/24. 19 Tablet 07/11/2024 2:00 PM EST 4 07/21/20 Active oxyCODONE HCl 5 MG Oral Tablet (Oxy IR) Take 1 Tablet by mouth every 6 hours as needed for Pain, Moderate or Pain, Severe. 16 Tablet 07/11/2024 2:00 PM EST Active Acetaminophen 325 MG Oral Tablet (Tylenol) Take 2 Tablets by mouth every 6 hours as needed for Pain, Mild. 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.] Aiden Arguello RN documented in this encounter Discharge Summaries * Jesse Crump MD - 07/11/2024 2:19 PM EST [facility] [id number] Admission Date: 07/10/2024 Discharge Date: 07/11/2024 RECOMMENDED TO DO FOR NEXT PROVIDER(S): Follow-up on liver function panel Repeat ERCP for biliary stent removal and a repeat cholangiogram in 6-8 weeks. REASON(S) FOR MEDICATION CHANGE(S): Start and complete Augmentin for intra-abdominal infection. Utilize tylenol and oxycodone as prescribed for pain. DISPOSITION ON DISCHARGE: home Active Hospital Problems Diagnosis *Principal Diagnosis - Choledocholithiasis Elevated bilirubin Elevated liver enzymes Polycystic ovarian syndrome Irritable bowel syndrome Cholelithiasis Type 2 diabetes mellitus with hemoglobin A1c goal of less than 7.0% (HCC) Mood disorder (HCC) Resolved Hospital Problems Diagnosis Date Resolved Headache 07/11/2024 Hyperinsulinemia 07/11/2024 Prediabetes 07/11/2024 ADMISSION HISTORY & PHYSICAL EXAM (focused): Per Albert Mora MD. Patient is a 39-year-old with past medical history of urinary incontinence, diabetes, migraine, pcos, depression and anxiety who transferred from [facility] to [facility] for midepigastric pain due to choledocholithiasis Patient reports having chest pain and presenting to [facility]. She was discharged after an unremarkable chest pain workup. Last night patient had severe nausea and vomiting but no diarrhea. She had midepigastric pain. She presented to [facility]. CT abdomen and pelvis was negative for pancreatitis but did show cholelithiasis with a moderate distended gallbladder and mild surrounding halo. Common bile duct is 7 mm with mild dilation. CTA chest was negative for pulmonary embolus CBC showed a white count of 4.86 hemoglobin of 13.5 hematocrit of 39.9 platelets 188. PT INR APTT were unremarkable. BMP at [facility] was unremarkable except for mild hypokalemia with this potassium of 3.3, BUN of 10 creatinine of 0.77 LFTs were significant for 7.2 total bili, direct bili of 4.5, AST of 518 ALT of 918 alk phos of 111. Lipase 133. HCG negative urinalysis showed cloudy red urine with 2+ protein 3+ ketones trace leukocyte esterase negative nitrite greater than 20 urine red blood cells 0-5 white blood cells no bacteria seen While at [facility] patient received 1 L normal saline, 4.5 g of Zosyn x1, IV Protonix, IV Zofran 4 mg x 2 potassium chloride 40 mEq p.o. x2, 50 mcg of fentanyl IV x1 Physical Exam: BP: 110 mmHg/72 mmHg (07/10/24 0850) Pulse: 71 (07/10/24 0850) Resp: 16 (07/10/24 0850) Temp: 36.22 C (07/10/24 0850) Temp Summary: Temp Min: 36.2 C (97.2 F) Max: 36.2 C (97.2 F) SpO2: 100 % (07/10/24 0850) O2 flow rate: Supplemental O2 Delivery: Room Air, None (07/10/24 0850) Physical Exam Vitals and nursing note reviewed. Exam conducted with a brick tosser present. Constitutional: General: She is not in acute distress. Appearance: Normal appearance. Eyes: General: Scleral icterus present. Cardiovascular: Rate and Rhythm: Normal rate and regular rhythm. Pulses: Normal pulses. Heart sounds: Normal heart sounds. No murmur heard. No friction rub. No gallop. Pulmonary: Effort: Pulmonary effort is normal. No respiratory distress. Breath sounds: Normal breath sounds. No wheezing, rhonchi or rales. Abdominal: General: Bowel sounds are normal. Palpations: Abdomen is soft. Tenderness: There is abdominal tenderness in the right upper quadrant and epigastric area. Musculoskeletal: Right lower leg: No edema. Left lower leg: No edema. Skin: General: Skin is warm and dry. Capillary Refill: Capillary refill takes less than 2 seconds. Neurological: General: No focal deficit present. Mental Status: She is alert. HOSPITAL COURSE (focused): Patient admitted due to abdominal pain, nausea, vomiting. GI was consulted, and recommendations leila ERCP were given due to increased liver enzymes and suspicion for choledocholithiasis. CT of the abdomen did show new cholelithiasis with a distended gallbladder and mild intra and extrahepatic ductal dilatation. Patient underwent ERCP, there was a somewhat challenging cannulation requiring a double wire technique. A sphincterotomy was performed and several stones in the large amount of sludge were extracted from the common bile duct. A covered metal stent was placed along with a prophylacticpancreatic stent. Patient to need repeat ERCP for biliary stent removal and a repeat cholangiogram in 6-8 weeks. Patient had improvement in liver enzymes after procedure, and decrease in total bilirubin as well. She was seen by General Surgery, and recommendations were made for outpatient cholecystectomy. Patient was started on Zosyn during her admission, but discharged on Augmentin for 10 days. She was deemed safe for discharge on 07/11/2024. To have outpatient follow-up with GI and General Yolanda wan. Vitals on date of discharge: Temp: [36 C (96.8 F)-36.3 C (97.3 F)] 36.3 C (97.3 F) Pulse: [66-81] 81 BP: (90-112)/(51-70) 95/60 Resp: [14-18] 16 SpO2: [98 %-100 %] 100 % Physical exam on date of discharge: GENERAL: alert and no distress HEART: regular rate & rhythm, no murmur, and no gallops LUNGS: no chest deformities noted, no chest wall tenderness, lungs clear to auscultation ABDOMEN: abdomen soft, non-tender, normal bowel sounds, and no masses or organomegaly EXTREMITIES: no joint deformities, effusion, or inflammation, no edema SKIN: no rashes or significant lesions Operations & Procedures: ERCP Complications: none significant Significant Lab and Imaging Results: Results for orders placed or performed during the hospital encounter of 07/10/24 CBC Result Value Ref Range WBC 4.23 4.00 - 10.80 K/uL RBC 3.76 3.85 - 5.15 M/uL HGB 11.3 (L) 12.0 - 15.3 g/dL HCT 35.2 (L) 36.0 - 45.2 % MCV 93.6 81.5 - 97.5 fL MCH 30.1 27.0 - 34.0 pg MCHC 32.1 32.0 - 36.0 g/dL RDW 13.6 11.5 - 15.5 % PLT 161 140 - 400 K/uL MPV 10.0 6.6 - 11.1 fL nRBCs 0 <=0 /100 WBCs COMPREHENSIVE METABOLIC PANEL Result Value Ref Range BUN 6 6 - 20 mg/dL CREATININE 0.7 0.5 - 1.0 mg/dL EGFR >90 >=60 mL/min SODIUM 140 135 - 146 mmol/L POTASSIUM 3.5 3.5 - 5.1 mmol/L CHLORIDE 110 (H) 98 - 107 mmol/L CO2 20 (L) 22 - 32 mmol/L ANION GAP 10 7 - 15 mmol/L GLUCOSE 77 70 - 120 mg/dL Albumin 3.6 (L) 3.8 - 5.0 g/dL AST 524 (H) 10 - 35 U/L Alkaline Phosphatase 115 35 - 130 U/L Bilirubin, Total 4.7 (H) <=1.2 mg/dL CALCIUM 8.0 (L) 8.4 - 10.2 mg/dL Protein 5.8 (L) 6.0 - 8.3 g/dL ALT 983 (H) 10 - 35 U/L PT INR Result Value Ref Range Prothrombin Time 14.8 11.6 - 15.2 seconds INR 1.1 0.8 - 1.2 HEMOGLOBIN A1C Result Value Ref Range Hemoglobin A1C 4.7 4.0 - 5.6 % Estimated Average Glucose 88 <126 mg/dL CBC Result Value Ref Range WBC 4.92 4.00 - 10.80 K/uL RBC 3.35 3.85 - 5.15 M/uL HGB 10.1 (L) 12.0 - 15.3 g/dL HCT 31.2 (L) 36.0 - 45.2 % MCV 93.1 81.5 - 97.5 fL MCH 30.1 27.0 - 34.0 pg MCHC 32.4 32.0 - 36.0 g/dL RDW 13.2 11.5 - 15.5 % PLT 150 140 - 400 K/uL MPV 10.3 6.6 - 11.1 fL nRBCs 0 <=0 /100 WBCs COMPREHENSIVE METABOLIC PANEL Result Value Ref Range BUN 4 (L) 6 - 20 mg/dL CREATININE 0.7 0.5 - 1.0 mg/dL EGFR >90 >=60 mL/min SODIUM 137 135 - 146 mmol/L POTASSIUM 3.9 3.5 - 5.1 mmol/L CHLORIDE 109 (H) 98 - 107 mmol/L CO2 19 (L) 22 - 32 mmol/L ANION GAP 9 7 - 15 mmol/L GLUCOSE 69 (L) 70 - 120 mg/dL Albumin 3.1 (L) 3.8 - 5.0 g/dL AST 167 (H) 10 - 35 U/L Alkaline Phosphatase 93 35 - 130 U/L Bilirubin, Total 1.9 (H) <=1.2 mg/dL CALCIUM 7.8 (L) 8.4 - 10.2 mg/dL Protein 5.1 (L) 6.0 - 8.3 g/dL ALT 608 (H) 10 - 35 U/L GLUCOSE METER, POINT OF CARE Result Value Ref Range GLUCOSE - POCT 63 (L) 70 - 120 mg/dL GLUCOSE METER, POINT OF CARE Result Value Ref Range GLUCOSE - POCT 109 70 - 120 mg/dL GLUCOSE METER, POINT OF CARE Result Value Ref Range GLUCOSE - POCT 100 70 - 120 mg/dL GLUCOSE METER, POINT OF CARE Result Value Ref Range GLUCOSE - POCT 87 70 - 120 mg/dL GLUCOSE METER, POINT OF CARE Result Value Ref Range GLUCOSE - POCT 89 70 - 120 mg/dL GLUCOSE METER, POINT OF CARE Result Value Ref Range GLUCOSE - POCT 76 70 - 120 mg/dL GLUCOSE METER, POINT OF CARE Result Value Ref Range GLUCOSE - POCT 63 (L) 70 - 120 mg/dL GLUCOSE METER, POINT OF CARE Result Value Ref Range GLUCOSE - POCT 106 70 - 120 mg/dL GLUCOSE METER, POINT OF CARE Result Value Ref Range GLUCOSE - POCT 62 (L) 70 - 120 mg/dL Results Pending at Discharge: Lab Results Pending at Discharge: None MEDICATION UPDATES AT DISCHARGE START taking these medications INSTRUCTIONS Acetaminophen 325 MG Tablet Commonly known as: Tylenol Notes to patient: Do not take more than 4,000mg in a 24 hour time frame Take 2 Tablets by mouth every 6 hours as needed for Pain, Mild. amoxicillin-clavulanate 875-125 MG per Tablet Commonly known as: Augmentin Take 1 Tablet by mouth in the morning and 1 Tablet before bedtime. Do all this for 19 doses. Start on the evening of 07/11/24. oxyCODONE 5 MG immediate release tablet Commonly known as: Oxy IR Take 1 Tablet by mouth every 6 hours as needed for Pain, Moderate or Pain, Severe. CONTINUE taking these medications INSTRUCTIONS B-12-SL 1000 MCG SL Tablet Generic drug: Cyanocobalamin Place 1,000 mcg under the tongue in the morning. Famotidine 20 MG Tablet Commonly known as: Pepcid Take 1 Tablet by mouth in the morning and 1 Tablet before bedtime. FLUoxetine 10 MG Capsule Commonly known as: PROzac TAKE 1 CAPSULE BY MOUTH EVERY MORNING hydrOXYzine 10 MG Tablet Commonly known as: Atarax take 1 tablet by mouth every 6 hours if needed for anxiety Mounjaro 5 MG/0.5ML Sopn Generic drug: Tirzepatide Inject 5 mg under the skin once a week. oxybutynin XL 5 MG Tb24 Commonly known as: Ditropan XL Take 1 Tablet by mouth in the morning. Do not cut, crush or chew. SUMAtriptan Succinate 100 MG Tablet Take 1 Tablet by mouth as needed for Migraine (take 1 tab by mouth at start of headache, may repeatonce after 2 hours; may use up to 2 days per week). topiramate 100 MG Tablet Commonly known as: topAMAX Take 1 Tablet by mouth every night at bedtime. SCHEDULED FOLLOW-UP: Future Appointments Appt Date/Time Provider Department 07/24/2024 2:45 PM Ronit Torres MD General Surgery, [facility] 09/17/2024 8:40 AM Opal Guzman DO [facility] Patient's Home 10/18/2024 10:00 AM [facility] Manuel [facility] 11/12/2024 10:40 AM Aretha Armstrong PA-C Nutrition & Weight Management, [facility] 01/07/2025 10:00 AM Donna Marshall Au.[facility]. [facility] 01/07/2025 10:30 AM Lc Flores MD Otolaryngology/Head & Neck/Facial Plastic Surgery Other Information Indwelling Devices: LINES None Vital Signs (last recorded): Most Recent Systolic BP: 95 mmHg (07/11/24 1128) Most Recent Diastolic BP: 60 mmHg (07/11/24 1128) Pulse: 81 (07/11/24 1128) Resp: 16 (07/11/24 1128) Most Recent Temperature: 36.28 C (07/11/24 1128) Weight: 47.6 kg (105 lb) (patient states) (07/10/24 1255) SpO2: 100 % (07/11/24 1128) O2 flow rate: 6 L/MIN (07/10/24 1516) Allergies: Patient has no known allergies. Activity: as tolerated Diet: age appropriate diet and consistent carbohydrate diet Code Status: Full Code Condition on Discharge: stable Isolation status: None Cognition: normal HOSPITAL CONSULTS ORDERED: GASTROENTEROLOGY CONSULT IP GENERAL SURGERY CONSULT IP REFERRING PHYSICIAN: REF: SELF NO STREET ADDRESS AVAILABLE PRIMARY CARE PROVIDER: PCP: Carmen Manuel PA-C [address] [place], [place] [address]zachery / [place] [phone] (office) [phone] (fax) Note: To contact a physician responsible for this patients hospital care, please call [facility] [phone]. Cosigned by Clemente Hoang DO at 07/11/2024 5:57 PM EST Associated attestation - Clemente Hoang DO - 07/11/2024 5:57 PM EST I saw and evaluated the patient today. I have reviewed the resident/fellow physician note and agree. I spent a total of 15 minutes coordinating, documenting, and providing care for this patient excluding time spent in the performance of separately billed services or time spent by another provider/QHP. documented in this encounter Discharge Instructions * Discharge Instr - AVS* Jesse Crump MD - 07/11/2024 12:49 PM EST Discharge Date: 07/11/24 The information below provides you with the instructions and the list of medications you need to betaking following discharge from the hospital. If you have any questions, please ask before leaving. If you have questions after leaving, you can reach us at the numbers below. YOUR HOSPITAL PROVIDERS: Discharging Provider: Clemente Hoang DO Provider Department: Hospital Medicine To reach this Provider Tuesday through Tuesday (8:00 AM to 4:30 PM) for any questions or test results: Call [phone] For after-hours concerns: Call [phone] and have your provider paged, or the provider application engineer for the Department of Hospital Medicine paged. Please note, the discharging provider will not be able to provide you with any medications refills.Please discuss these with your primary care provider. Worsening Symptoms: If you have new symptoms, or your symptoms get worse, please contact your Discharge Provider or Primary Care Provider (PCP). If these providers are not available, you can [facility] to your [facility] during their business hours. In an EMERGENCY situation: Call 911 or go to the nearest emergency room. A BRIEF SUMMARY OF YOUR HOSPITAL STAY: You came to the hospital with: complaint of Abdominal pain with nausea and vomiting. Your main diagnosis at discharge was: Choledocholithiasis Operations & Procedures performed: ERCP with sphincterotomy and stent placement Complications: none significant Inpatient test results that are pending at discharge: none Advance Directive Documented: Advance Directive Does the Patient have an Advance Directive? No YOUR FOLLOW UP APPOINTMENTS: Primary Care Provider Information: PCP: Carmen Manuel PA-C [facility] / [place] [phone] (office) [phone] (fax) An appointment was requested with your PCP (Carmen Manuel PA-C) within 7 days. (Please take this form to this visit with your primary care physician.) Please follow up with General Surgery at [facility] ([facility]). Please follow up with Gastroenterology in 2 weeks. You need the following studies in the future: Liver function panel INSTRUCTIONS: Diet: Consistent carbohydrate diet Activity: No restrictions and As tolerated Medications: Please start and complete Augmentin 1 tablet in the morning and 1 tablet in the evening, start this on the evening of 07/11/24 and end on 07/21/24. Please complete the entire antibiotic course. Additional Instructions: - Call your primary care physician or seek medical attention if you need help with medication management. - Do not use alcohol products in anyway! documented in this encounter H&P Notes * Lakhwinder Torres DO - 07/10/2024 1:19 PM EST Endoscopy Pre-Procedure Assessment Name: Otilia Campa Date: 07/10/2024 Time: 1:19 PM Procedure(s): ERCP; with Indication(s) of treatment of suspected choledocholithiasis Endoscopy Pre-Procedure Assessment: Prior to the procedure, the patient is identified. The patient's history, medications and allergieshave been reviewed. The patient is competent. The risks and benefits of the proposed procedure and the planned sedation have been discussed with the patient. All questions have been answered and informed consent for the procedure has been obtained. Prior to Admission medications Medication Sig Last Dose Discont. SUMAtriptan Succinate 100 MG Oral Tablet Take 1 Tablet by mouth as needed for Migraine (take 1 tab by mouth at start of headache, may repeat once after 2 hours; may use up to 2 days per week). Unknown Topiramate 100 MG Oral Tablet (topAMAX) Take 1 Tablet by mouth every night at bedtime. 07/09/2024 Mounjaro 5 MG/0.5ML Subcutaneous Solution Pen-injector (Tirzepatide) Inject 5 mg under the skin once a week. Unknown hydrOXYzine HCl 10 MG Oral Tablet (Atarax) take 1 tablet by mouth every 6 hours if needed for anxiety 07/09/2024 oxyBUTYnin Chloride ER 5 MG Oral Tablet Extended Release 24 Hour Take 1 Tablet by mouth in the morning. Do not cut, crush or chew. 07/09/2024 FLUoxetine HCl 10 MG Oral Capsule (PROzac) TAKE 1 CAPSULE BY MOUTH EVERY MORNING 07/09/2024 B-12-SL 1000 MCG Sublingual Tablet Sublingual (Cyanocobalamin) Place 1,000 mcg under the tongue in the morning. 07/09/2024 Famotidine 20 MG Oral Tablet (Pepcid) Take 1 Tablet by mouth in the morning and 1 Tablet before bedtime. 07/09/2024 Review of patient's allergies indicates: No Known Allergies BP 97/56 | Pulse 68 | Temp 36.8 C (98.2 F) (Tympanic) | Resp 16 | Ht 1.448 m (4' 9") | Wt 47.6 kg (105 lb) Comment: patient states | SpO2 98% | BMI 22.72 kg/m | BSA 1.38 m Physical Exam: Mental Status Examination: alert and oriented. Airway Examination: normal oropharyngeal airway and neck mobility. Respiratory Examination: poor air movement. CV Examination: systolic murmur. ASA Grade: III - A patient with severe systemic disease. Abdomen: soft Latest Reference Range & Units 07/10/24 10:27 INR 0.8 - 1.2 1.1 Prothrombin Time 11.6 - 15.2 seconds 14.8 Latest Reference Range & Units 07/10/24 10:27 WBC 4.00 - 10.80 K/uL 4.23 RBC 3.85 - 5.15 M/uL 3.76 HGB 12.0 - 15.3 g/dL 11.3 (L) HCT 36.0 - 45.2 % 35.2 (L) MCV 81.5 - 97.5 fL 93.6 MCH 27.0 - 34.0 pg 30.1 MCHC 32.0 - 36.0 g/dL 32.1 RDW 11.5 - 15.5 % 13.6 PLT 140 - 400 K/uL 161 (L): Data is abnormally low Latest Reference Range & Units 07/10/24 10:27 Albumin 3.8 - 5.0 g/dL 3.6 (L) AST 10 - 35 U/L 524 (H) ALT 10 - 35 U/L 983 (H) Alkaline Phosphatase 35 - 130 U/L 115 Bilirubin, Total <=1.2 mg/dL 4.7 (H) (L): Data is abnormally low (H): Data is abnormally high This patient has undergone a preprocedural evaluation. A determination has been made to proceed with the planned procedure under [facility] procedural guidelines and the [facility] Non-Emergent, Elective Medical Services and Treatment Recommendations (published on 10-30-19). The community and hospital prevalence of COVID-19 has been discussed as well as this patient's specific risks associated with SARS-CoV-19 infection. Based upon the clinical acuity and patient-specific care considerations, this procedure is deemed a Tier II - Intermediate acuity treatment or service with either progression or the threat of progressive disease related to the delay in treatment. Not providing the service has the potential for increasing morbidity or mortality. After reviewing the risks and benefits, the patient is deemed in satisfactory condition to undergo the procedure. The anesthesia plan is to use general anesthesia. We have discussed the risks and benefits of ERCP to include bleeding, infection, perforation, aspiration, pain, pancreatitis, and failed cannulation. Lakhwinder Torres DO 07/10/2024 * Albert Mora MD - 07/10/2024 9:42 AM EST Images from the original note were not included. [facility] [id number] PRESENTING PROBLEM: abd pain HPI: Patient is a 39-year-old with past medical history of urinary incontinence, diabetes, migraine, pcos, depression and anxiety who transferred from [facility] to [facility] for midepigastric pain due to choledocholithiasis Patient reports having chest pain and presenting to [facility]. She was discharged after an unremarkable chest pain workup. Last night patient had severe nausea and vomiting but no diarrhea. She had midepigastric pain. She presented to [facility]. CT abdomen and pelvis was negative for pancreatitis but did show cholelithiasis with a moderate distended gallbladder and mild surrounding halo. Common bile duct is 7 mm with mild dilation. CTA chest was negative for pulmonary embolus CBC showed a white count of 4.86 hemoglobin of 13.5 hematocrit of 39.9 platelets 188. PT INR APTT were unremarkable. BMP at [facility] was unremarkable except for mild hypokalemia with this potassium of 3.3, BUN of 10 creatinine of 0.77 LFTs were significant for 7.2 total bili, direct bili of 4.5, AST of 518 ALT of 918 alk phos of 111. Lipase 133. HCG negative urinalysis showed cloudy red urine with 2+ protein 3+ ketones trace leukocyte esterase negative nitrite greater than 20 urine red blood cells 0-5 white blood cells no bacteria seen While at [facility] patient received 1 L normal saline, 4.5 g of Zosyn x1, IV Protonix, IV Zofran 4 mg x 2 potassium chloride 40 mEq p.o. x2, 50 mcg of fentanyl IV x1 Patient transferred to [facility] in anticipation of ERCP today for biliary obstruction likely due to choledocholithiasis Subjective Patient's past history, medications, and allergies were reviewed. Objective Physical Exam Most Recent Vital Signs: BP: 110 mmHg/72 mmHg (07/10/24 0850) Pulse: 71 (07/10/24 0850) Resp: 16 (07/10/24 0850) Temp: 36.22 C (07/10/24 0850) Temp Summary: Temp Min: 36.2 C (97.2 F) Max: 36.2 C (97.2 F) SpO2: 100 % (07/10/24 0850) O2 flow rate: Supplemental O2 Delivery: Room Air, None (07/10/24 0850) Physical Exam Vitals and nursing note reviewed. Exam conducted with a brick tosser present. Constitutional: General: She is not in acute distress. Appearance: Normal appearance. Eyes: General: Scleral icterus present. Cardiovascular: Rate and Rhythm: Normal rate and regular rhythm. Pulses: Normal pulses. Heart sounds: Normal heart sounds. No murmur heard. No friction rub. No gallop. Pulmonary: Effort: Pulmonary effort is normal. No respiratory distress. Breath sounds: Normal breath sounds. No wheezing, rhonchi or rales. Abdominal: General: Bowel sounds are normal. Palpations: Abdomen is soft. Tenderness: There is abdominal tenderness in the right upper quadrant and epigastric area. Musculoskeletal: Right lower leg: No edema. Left lower leg: No edema. Skin: General: Skin is warm and dry. Capillary Refill: Capillary refill takes less than 2 seconds. Neurological: General: No focal deficit present. Mental Status: She is alert. STUDIES: Encounter Orders Labs and other studies reviewed with pertinent findings noted below: As above Assessment and Plan IMPRESSION: Principal Problem: Choledocholithiasis Active Problems: Mood disorder (HCC) Prediabetes Hyperinsulinemia Type 2 diabetes mellitus with hemoglobin A1c goal of less than 7.0% (HCC) Cholelithiasis Elevated bilirubin Elevated liver enzymes Headache Irritable bowel syndrome Polycystic ovarian syndrome Resolved Problems: * No resolved hospital problems. * DIFFERENTIAL AND PLAN: 39-year-old with past medical history of urinary incontinence, pcos, diabetes, migraine, depressionand anxiety transferred from [facility] for biliary obstruction likely due to choledocholithiasis Biliary obstruction likely choledocholithiasis GI consult for ERCP Anticipate ERCP today IV fluids IV antiemetics and p.r.n. narcotics for symptom Follow cmp Cholelithiasis General Surgery consult for timing of cholecystectomy Diabetes/prediabetes/pcos Last A1c of 4.8 October 01 2023 Patient reports significant weight loss on mounjaro Hold prior to admission Mounjaro Recheck A1c Correctional insulin as needed Depression/anxiety Continue prior to admission p.r.n. hydroxyzine, daily Prozac Migraines Continue prior to admission Topamax and p.r.n. Imitrex GERD Hold prior to admission Pepcid IV twice daily PPI for now Urinary incontinence Continue prior to admission Ditropan PHARMACOLOGIC VTE PROPHYLAXIS: This patient does not have an active medication from one of the medication groupers. CODE STATUS: Full Code Advance Care Planning PATIENT CAPACITY FOR HEALTHCARE DECISION MAKING Otilia Campa demonstrates no obvious deficits and is currently their own healthcare decision maker. According to Otilia Campa, They have NOT completed a written document (such as a Living Will, Durable Healthcare Power of Registered Massage Therapist, combination form or advance care planning document such as a POLST or Statement of Treatment Preference) that indicates either their healthcare wishes and/or adesignated healthcare agent. Otilia Gaona Katheryn designates cruzito campa, their spouse as their healthcare employee's representative at this time, asserting that if they become unable to make their own medical decisions, this person knows their healthcare wishes and values best. EXPECTED DISCHARGE DATE: No information available documented in this encounter Procedure Notes * Mirza Junior MD - 07/10/2024 1:09 PM ESTAssociated Order(s): ERCP [facility] Patient Name: Otilia Campa Procedure Date: 07/10/2024 1:09 PM Date of : 1985 Admit Type: Outpatient Note Status: Finalized Date of : 1985 Admit Type: Outpatient Age: 39 Room: OR 1 Gender: Female Note Status: Finalized Procedure: ERCP Indications: For therapy of bile duct stone(s), Epigastric abdominal pain Providers: Lakhwinder Torres DO (Doctor) Referring MD: Mirza Junior MD, Albert Mora MD Medicines: General Anesthesia Complications: No immediate complications. Estimated blood loss: Minimal. Procedure: Pre-Anesthesia Assessment: - Prior to the procedure, a History and Physical was performed, and patient medications, allergies and sensitivities were reviewed. The patient's tolerance of previous anesthesia was reviewed. - The risks and benefits of the procedure and the sedation options and risks were discussed with the patient. All questions were answered and informed consent was obtained. - Patient identification and proposed procedure were verified prior to the procedure by the physician, the nurse and the tile sprayer. The procedure was verified in the procedure room. - Pre-procedure physical examination revealed no contraindications to sedation. - ASA Grade Assessment: III - A patient with severe systemic disease. - After reviewing the risks and benefits, the patient was deemed in satisfactory condition to undergo the procedure. - The anesthesia plan was to use general anesthesia. - Immediately prior to administration of medications, the patient was re- assessed for adequacy to receive sedatives. - The heart rate, respiratory rate, oxygen saturations, blood pressure, adequacy of pulmonary ventilation, and response to care were monitored throughout the procedure. - The physical status of the patient was re-assessed after the procedure. After obtaining informed consent, the scope was passed under direct vision. All instruments were visually inspected immediately before and after removal from the patient to ensure they are fully intact. Throughout the procedure, the patient's blood pressure, pulse, and oxygen saturations were monitored continuously. The upper GI endoscopy was accomplished without difficulty. The patient tolerated the procedure well. After obtaining informed consent, the scope was passed under direct vision. All instruments were visually inspected immediately before and after removal from the patient to ensure they are fully intact. Throughout the procedure, the patient's blood pressure, pulse, and oxygen saturations were monitored continuously. The Duodenoscope was introduced through the mouth, and advanced to the duodenum and used to inject contrast into the bile duct and ventral pancreatic duct. Findings & Specimens: The doctor of veterinary medicine film was normal. The esophagus was successfully intubated under direct vision without detailed examination of the pharynx, larynx, and associated structures, and upper GI tract. The upper GI tract was grossly normal. The major papilla was normal. The ventral pancreatic duct was inadvertently cannulated with the short-nosed traction sphincterotome and guidewire without any complications. The wire was left in place to aid with biliary cannulation using a double wire technique and later place a prophylactic pancreatic stent. The bile duct was deeply cannulated with the short-nosed traction sphincterotome and second angled 0.025 in guidewire. Contrast was injected. I personally interpreted the bile duct images. Contrast extended to the entire biliary tree. The main bile duct was moderately dilated. The largest diameter was 10 mm. The lower third of the main bile duct contained filling defect(s) thought to be a stone. The biliary orifice was stenotic. This appeared benign. Biliary sphincterotomy was made with a Jagtome sphincterotome using ERBE electrocautery. There was no post-sphincterotomy bleeding. One 5 Fr by 7 cm pancreatic stent with a full external pigtailand no internal flaps was placed 7 cm into the ventral pancreatic duct. Clear fluid flowed through the stent. The stent was in good position. To discover objects, the biliary tree was swept with a 12 mm balloon starting at the bifurcation. Sludge was swept from the duct. A few green pigmented stones and a large amount of thick bile/sludge was removed. Due to the distal stricture and the large amount of thick bile, one 10 Fr by 6 cm covered metal stent was placed 6 cm into the common bile duct ([place] Viabil, [id number], [id number]) for drainage and stricture remodeling. Bile flowed through the stent. The stent was in good position. The endoscope was withdrawn from the patient. Indomethacin 100 mg was given via suppository to decrease the risk of post-ERCP pancreatitis (PEP). Impression: - The major papilla appeared normal. 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 Complete removal was accomplished by biliary sphincterotomy and balloon extraction and placement of a covered metal stent. - One prophylactic pancreatic stent was placed into the ventral pancreatic duct. - Indomethacin given to decrease risk of post-ERCP pancreatitis. Recommendation: - Avoid aspirin and nonsteroidal anti-inflammatory medicines for 1 week. - Clear liquid diet today. - Use broad spectrum antibiotics for 10 days. - Repeat ERCP in 6-8 weeks to remove stent. - Cholecystectomy per General Surgery. Lakhwinder Torres DO 07/10/2024 3:07:50 PM This report has been signed electronically. Estimated Blood Loss: Estimated blood loss was minimal. documented in this encounter Consult Notes * Myranda Zamorano PA-C - 07/10/2024 11:31 AM ESTAssociated Order(s): GASTROENTEROLOGY CONSULT IP CONSULT - Gastroenterology [facility] [facility] [place] [id number] Name: Otilia Campa Location: [facility] [id number] Date: 07/10/2024 Time: 11:32 AM REQUESTING SERVICE: Medicine REASON FOR CONSULT: choledolcoliathsis HPI: Otilia Campa is a 39 year old female with PMhx obesity, T2DM, urinary incontinence, migraine, depression/anxiety, and others, transferred from [facility] earlier this morning due to choledocholithiasis. Over the weekend, patient developed epigastric/chest pain. She initially went to the ER on 07/07, she was treated with IVF, Pepcid and Carafate. ACS, PE ruled out; LFTs WNL, and she was discharged. She presented again yesterday 07/09 with worsening pain. At that time she also had jaundice and dark urine, as well as rigors, severe nausea and vomiting. Elevated LFTs were noted (total bilirubin 7.2, direct bilirubin 4.5, AST 518, ALT 918, alk-phos 111), mildly elevated lipase of 133, normal WBC,CBC, lipase, and BMP. US ABD showed distended gallbladder with multiple cholelithiasis seen, diffuse wall thickness and pericholecystic stranding, suggestive of acute cholecystitis, as well as dilated CBD at 10 mm with impacted stone suggested at the distal CBD. CTAP with no evidence for pancreatitis. She was noted to have some low BPs in the 90s/low 100's systolic; no tachycardia, afebrile. She was transferred here for ERCP as this was not able to be done at that facility. Here BP somewhat soft, 97/60, P 72, satting well on room air; remains afebrile. Pain and nausea are currently controlled with analgesia and antiemetics. Patient tells me she is on Mounjaro for diabetes and has lost 70 lb recently. Had used some NSAIDs at home for this abdominal pain but typically does not use NSAIDs. No tobacco or alcohol use. Denieshistory of gastric bypass. Currently denies hematemesis, melena hematochezia, she is having some belching, denies significant heartburn or dysphagia. Appetite has been normal recently. Denies acholic stools, fevers, shortness of breath. Denies significant cardiac or respiratory history. She did have epigastric pain in January of 2023, EGD at that time was unremarkable. EGD 2022: - Normal esophagus. - Z-line regular, 36 cm from the incisors. - Normal stomach. Biopsied. - Normal duodenal bulb and second portion of the duodenum. HISTORY: Past Medical History: Past Medical History: Diagnosis Date Dysfunction of eustachian tube Eustachian tube dysfunction Irritable bowel syndrome Lumbago Other atopic dermatitis and related conditions Surveillance of previously prescribed contraceptive method Type 2 diabetes mellitus with hemoglobin A1c goal of less than 7.0% ([facility]) 2022-10-05 Adding E11.9-Type 2 diabetes mellitus with hemoglobin A1c goal of less than 7.0% ([facility]) Dx to History Past Surgical History: Past Surgical History: Procedure Laterality Date CREATE EARDRUM OPENING,GEN'L ANESTH Left 01/08/2016 TYMPANOSTOMY INSERTION TUBE GENERAL ANESTHESIA performed by Emile Cat DO at OR [facility] CREATE EARDRUM OPENING,GEN'L ANESTH Right 10/07/2017 TYMPANOSTOMY INSERTION TUBE GENERAL ANESTHESIA performed by Rodrigo Mcqueen II, MD at OR [facility] EGD, FLEXIBLE, DIAGNOSTIC 02/14/2023 biopsies show mild irritation of stomach/ESOPHAGOGASTRODUODENOSCOPY (EGD), FLEXIBLE, TRANSORAL, DIAGNOSTIC performed by Carmen Quintero MD at ENDOSCOPY [facility] INCISION OF EARDRUM x3 last one 1998---(-and tubes) INCISION OF EARDRUM 06/10/2006 and tubes,[facility] MASTOID SURG REVISION,TYMPANOPLASTY Left 09/29/2021 REVISION MASTOIDECTOMY RESULTING IN TYMPANOPLASTY performed by Lc Flores MD at OR [facility] PAP SCREEN 10/23/2005 , [employer] REBUILD EARDRUM STRUCTURES Dr. Blue 2007 RECONSTRUCT MIDDLE EAR & MASTOID Left 03/19/2019 TYMPANOPLASTY MASTOIDECTOMY WITH OSSICULAR RECONSTRUCTION performed by Lc Flores MD at [facility] RECONSTRUCT MIDDLE EAR & MASTOID Left 09/29/2021 TYMPANOPLASTY MASTOIDECTOMY INTACT OR RECONSTRUCTED WALL performed by Lc Flores MD at [facility] REMOVAL OF TONSILS, AGE 12+ 09/17/2010 Dr. Denton [facility] REVISE EARDRUM STRUCTURES 09/17/2010 Dr. Denton [facility] REVISE MIDDLE EAR & MASTOID Right 10/07/2017 TYMPANOPLASTY MASTOIDECTOMY WITHOUT OSSICULAR RECONSTRUCTION performed by Rodrigo Mcqueen II, MD at [facility] REVISION OF EARDRUM Right 03/19/2019 MYRINGOPLASTY performed by Lc Flores MD at [facility] UMBIL HERNIA REPAIR (REDUCIBLE) AGE 5+YR 04/21/2016 04/21/2016 repair of umbilical hernia - Luis Enrique Arzate OR - Dr. Ronit Torres UMBIL HERNIA REPAIR (REDUCIBLE) AGE 5+YR N/A 04/21/2016 REPAIR UMBILICAL HERNIA AGE 5 AND OVER performed by Ronit Torres MD at OR [facility] Social History: Social History Tobacco Use Smoking status: Former Current packs/day: 0.00 Average packs/day: 0.5 packs/day for 5.0 years (2.5 ttl pk-yrs) Types: Cigarettes Start date: 09/06/2005 Quit date: 09/06/2010 Years since quittin.8 Smokeless tobacco: Never Vaping Use Vaping status: Never Used Substance Use Topics Alcohol use: Yes Comment: rarely Drug use: No Family History: Family History Problem Relation Name Age of Onset Diabetes Grandmother (Paternal) Heart Disorder Father [place] age 51 Allergies: Patient has no known allergies. ROS: A complete review of systems is as stated above, otherwise, all others negative. PHYSICAL EXAMINATION: Most Recent Vital Signs: BP: 97 mmHg/60 mmHg (07/10/24 1100) Pulse: 72 (07/10/24 1100) Resp: 16 (07/10/24 1100) Temp: 36.28 C (07/10/24 1100) Temp Summary: Temp Min: 36.2 C (97.2 F) Max: 36.3 C (97.3 F) SpO2: 100 % (07/10/24 1100) O2 flow rate: Supplemental O2 Delivery: Room Air, None (07/10/24 1100) Vital Signs Last 24 Hours: Systolic BP: Most Recent Systolic BP Av.5 mmHg Min: 97 mmHg Max: 110 mmHg Temperature: Most Recent Temperature Av.3 C Min: 36.22 C Max: 36.28 C Pulse: Pulse Av.5 Min: 71 Max: 72 Respirations: Resp Av Min: 16 Max: 16 SpO2: SpO2 Av % Min: 100 % Max: 100 % Constitutional: no acute distress, (+) chronically ill HEENT: normal: normocephalic, atraumatic; no masses, tenderness, or adenopathy Eyes: icterus Neck: normal range of motion CV: normal rate and rhythm, soft systolic murmur Chest: normal respiratory effort, breath sounds normal Abdomen: Normal bowel sounds, abdomen is soft but mildly tender in the epigastrium, no rebound, guarding or distention Extremities: no edema Skin: (+) jaundice Neuro: normal mental status exam Psych: normal mood and affect, memory normal LABS: Labs reviewed. Recent Results (from the past 24 hours) CBC Collection Time: 07/10/24 10:27 AM Result Value Ref Range WBC 4.23 4.00 - 10.80 K/uL RBC 3.76 3.85 - 5.15 M/uL HGB 11.3 (L) 12.0 - 15.3 g/dL HCT 35.2 (L) 36.0 - 45.2 % MCV 93.6 81.5 - 97.5 fL MCH 30.1 27.0 - 34.0 pg MCHC 32.1 32.0 - 36.0 g/dL RDW 13.6 11.5 - 15.5 % PLT 161 140 - 400 K/uL MPV 10.0 6.6 - 11.1 fL nRBCs 0 <=0 /100 WBCs COMPREHENSIVE METABOLIC PANEL Collection Time: 07/10/24 10:27 AM Result Value Ref Range BUN 6 6 - 20 mg/dL CREATININE 0.7 0.5 - 1.0 mg/dL EGFR >90 >=60 mL/min SODIUM 140 135 - 146 mmol/L POTASSIUM 3.5 3.5 - 5.1 mmol/L CHLORIDE 110 (H) 98 - 107 mmol/L CO2 20 (L) 22 - 32 mmol/L ANION GAP 10 7 - 15 mmol/L GLUCOSE 77 70 - 120 mg/dL Albumin 3.6 (L) 3.8 - 5.0 g/dL AST 524 (H) 10 - 35 U/L Alkaline Phosphatase 115 35 - 130 U/L Bilirubin, Total 4.7 (H) <=1.2 mg/dL CALCIUM 8.0 (L) 8.4 - 10.2 mg/dL Protein 5.8 (L) 6.0 - 8.3 g/dL ALT 983 (H) 10 - 35 U/L PT INR Collection Time: 07/10/24 10:27 AM Result Value Ref Range Prothrombin Time 14.8 11.6 - 15.2 seconds INR 1.1 0.8 - 1.2 IMAGING at [facility]: US ABD 07/09/2024: FINDINGS: Liver: Liver size: [Measurements in length (18.6 cm)]. Enlarged liver, showing mild heterogeneous echotexture with intrahepatic biliary dilatation. No evidence of focal lesions, cysts, or masses. Hepatic vasculature appears normal. Gallbladder: Gallbladder size: [Measurements in length (12 cm)]. The gallbladder is visualized and appears distended in size and shape. Multiple gravity-dependent gallstones, along with a small amount of sludge, show diffuse increased wall thickening, measuring 2.9 mm, with small pericholecystic fluid noted. No evidence of gallbladder wall edema or signs of acute cholecystitis. Biliary Tree: Common bile duct diameter: [10 mm].The common bile duct is dilated, down to its distal portion, where there is a small echogenic focus measuring 6 mm, suggesting a distal CBD stone. Pancreas: Normal in size, outlines and echotexture. No focal lesion. The main pancreatic duct is normal caliber. IMPRESSION: 1. Enlarged liver, showing mild heterogeneous echotexture with intrahepatic biliary dilatation. 2. Distended gallbladder shows multiple gallstones, with small sludge, diffuse increased wall thickness, and small pericholecystitic fat stranding, suggesting acute cholecystitis. 3. Dilated CBD with distal impacted stone. CTAP 07/09/2024 IMPRESSION: 1. New cholelithiasis, distended gallbladder, mild intra-and extrahepatic ductal dilatation, nonspecific, concerning for acute cholecystitis in the appropriate clinical setting. 2. Choledocholithiasis not excluded. 3. Hepatomegaly versus Mary's lobe, stable. CTA 07/09/2024: 1. No pulmonary embolism. 2. Lungs are clear. IMPRESSION: Otilia Campa is a(n) 39 year old female who presents with epigastric pain, nausea, vomiting, jaundice, found to have evidence of cholelithiasis/acute cholecystitis and choledocholithiasis on imaging at outside facility, along with elevated LFTs, and was transferred here for ERCP. No tachycardia, leukocytosis or fever but BPs have been running soft, abd soft, mild TTP, RECOMMENDATIONS/PLAN: - We will plan ERCP today to evaluate and treat suspected choledocholithiasis - General Surgery consult to evaluate for cholecystectomy - Keep NPO - Continue supportive care with IVF - Empiric antibiotics - Continue antiemetics p.r.n. - Continue analgesia p.r.n. Thank you for the opportunity to be involved in this patient's care. Please see attending addendum for further discussions/recommendations. I have discussed the case with my attending, Dr Junior. Cosigned by Mirza Junior MD at 07/10/2024 4:58 PM EST Associated attestation - Mirza Junior MD - 07/10/2024 4:58 PM EST I have discussed the patient's management with PA. Sofya. Please refer to the physician gallery assistant's note for the documented findings and plan of care. ERCP given choledocholithiasis on imaging Further recs per Dr. Arreguin ERCP note documented in this encounter Nursing Notes * Tiffany Ma RN - 07/11/2024 2:19 PM EST Reviewed d/c instructions with pt and spouse. Pt and spouse educated on medications, apts, s/s to call 911 and PCP, diet, and f/u for stent removal. GI will send instructions. Questions asked and answered. Escorted to exit via ambulation. * Elicia Ho NA/UDC - 07/11/2024 1:[address] Hope MD [facility] [phone] [address] [place] [address] June @ 7:[address] Ronit Torres (General Surgery) [phone] [address] [place] [address] Wednesday July 24, 2024 @ 2:45 p.m. (Gastroenterology) [phone] [address] [place] [address] Wednesday August 28, 2024 @ 8:15 a.m. *This is for your stent removal* they will send you instructions in the mail* * Gwen Ellsworth RN - 07/10/2024 4:37 PM EST IN-HOUSE TRANSFER RECEIVING UNIT - NURSING [address] [address] Name: Otilia Campa Location: [facility] [id number] Date: 07/10/2024 Time: 4:38 PM Patient received to room 60 at 1605 Vital Signs: BP: 110 mmHg/72 mmHg (07/10/24 1604) Pulse: 65 (07/10/24 1604) Resp: 16 (07/10/24 1604) Temp: 36.11 C (07/10/24 1604) Temp Summary: Temp Min: 36.1 C (97 F) Max: 36.8 C (98.2 F) SpO2: 98 % (07/10/24 1604) O2 flow rate: 6 L/MIN (07/10/24 1516) Supplemental O2 Delivery: Room Air, None (07/10/24 1551) Pertinent transfer information upon arrival SBAR, procedure performed, Stents placed x 2 one in common bile duct and one in pancreatic duct, stones and sludge removed from gallbladder. Belongings received with patient: Chart, IV fluids, and Scd machine. Verbal SBAR report received from: Willow Chandler RN Dual Licensed Skin Assessment completed by Gwen Ellsworth RN and Gwen Arreguin RN. The patient is/has a N/A Skin Breakdown (includes non blanchable erythema): No * Willow Chandler RN - 07/10/2024 4:10 PM EST Post Anesthesia Care Unit Discharge Note [address] [address] Dept[address] Otilia Gaona Dragangrabiel Vital Signs Stable Discharged from PACU as per discharge criteria (see discharge criteria sheet). Time: 1555 Reported to: Gwen MIGUEL Taken to Inpatient Room [facility], accompanied by Ryann MIGUEL. Transported via: Bed Belongings with Patient: NO Prescriptions on Chart: N/A Patient meets criteria to be transferred or discharged * Yin Ayala RN - 07/10/2024 2:52 PM EST ERCP with stent placement completed in [facility] OR 1. Sedated by PLASTICS ENGINEERING TEACHER. See anesthesia record for VS and medications given. Pt tolerated procedure well with minimal gagging. Abd soft. Airway patent. Pt to recovery on L side with HOB elevated. Report to recovery room nurse. Bedside cleaning done. * Gwen Ellsworth RN - 07/10/2024 12:00 PM EST IN-HOUSE TRANSFER SENDING UNIT - NURSING [address] [address] Name: Otilia Campa Location: [facility] [id number] Date: 07/10/2024 Time: 4:33 PM Pertinent information upon transfer SBAR, physical assessment, medications given, most recent VS. Isolation: None Transferring nursing unit: 6b Vital signs: BP: 110 mmHg/72 mmHg (07/10/24 1604) Pulse: 65 (07/10/24 1604) Resp: 16 (07/10/24 1604) Temp: 36.11 C (07/10/24 1604) Temp Summary: Temp Min: 36.1 C (97 F) Max: 36.8 C (98.2 F) SpO2: 98 % (07/10/24 1604) O2 flow rate: 6 L/MIN (07/10/24 1516) Supplemental O2 Delivery: Room Air, None (07/10/24 1551) From room 60 to [facility] Means of transfer: bed Family and/or significant other notified of transfer: yes Belongings being sent with patient: IV, chart and SCD's Verbal SBAR report given to: Alicja Beckwith. RN * Aiden Garza RN - 07/10/2024 9:04 AM EST VIRTUAL RN [facility] [phone] Name: Otilia Campa Location: [facility] [id number] Date: 07/10/2024 Time: 9:04 AM I completed the Admission Navigator. The patient was in the hospital. I was in a private office space at a [facility] location. After connecting through televMobivoxo, the patient was identified by name and date of and / or wristband checked. Patient (or authorized legal employee's representative) was then in formed that this was a Virtual Nurse visit and was being conducted confidentially over secure lines. I used a headset and other methods to ensure confidentiality for the patient. Patient acknowledgedconsent and understanding of privacy and security of the Virtual Nurse visit. I presented the opportunity for the patient or authorized legal employee's representative to ask any questions regarding the visit today. The patient or authorized legal employee's representative agreed to participate. Otilia Campa is a 39 y.o.f. admitted with abdominal pain. She is A&Ox4, MAEW, able to answer all admission questions w/o a problem. She knows all her meds, their use and dosing schedule. States she understands everything discussed, and has no questions. Encouraged to ring for assistance if she needs to get OOB or hasother requirements. Call onofre is within reach. * Gwen Monge RN - 07/10/2024 9:00 AM EST Telephone report taken from LAMONT Knight at [facility]. Verbal report given to Alison Ellsworth RN. Patient coming from [facility] for gallstones and ERCP. documented in this encounter Miscellaneous Notes * Communication - Myranda Zamorano PA-C - 07/11/2024 2:19 PM EST Patient previously seen, being discharged today. Did well overnight. LFTs trending down. Very mild intermittent abdominal discomfort. No nausea vomiting, tolerated clears. No melena hematochezia or hematemesis, no fevers or chills. No leukocytosis. ERCP 07/10/2024: - The major papilla appeared normal. 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 Complete removal was accomplished by biliary sphincterotomy and balloon extraction and placement of a covered metal stent. - One prophylactic pancreatic stent was placed into the ventral pancreatic duct. - Indomethacin given to decrease risk of post-ERCP pancreatitis. Impression: 39-year-old female transferred from outside hospital for suspicion of choledocholithiasis and cholelithiasis. She underwent ERCP yesterday were choledocholithiasis was found and removed via biliary sphincterotomy and balloon extraction, placement of CBD stent and prophylactic pancreaticstent. Plan from surgery is to perform outpatient cholecystectomy. Plan: - Advance diet to low-fat as tolerated - Complete course of broad-spectrum antibiotics for 10 days - Repeat ERCP in 6-8 weeks for stent removal - Cholecystectomy as per General Surgery - Avoid aspirin and NSAIDs for 1 week - GI will sign off, please call with questions * Hospital Course - Jesse Crump MD - 07/11/2024 2:19 PM EST {Hospital Course documentation can easily be pulled into the Discharge Summary by documenting here and using the smartlink in the Discharge Summary template:00579} * Care Plan - Laura Tristan RN - 07/11/2024 5:24 AM EST Clinical Goal(s): Pt. will report adequate pain control this shift (07/10/241927) Possible barriers to meeting goal(s)/advancing plan of care: s/p ERCP Stability of the patient: Moderately stable - low risk of patient condition declining or worsening Summary regarding today's goal(s): Met: Pt. Denied pain this shift Recommendations: Continue to assess for pain and administer pain medication per MAR * Pt Handout (on AVS) - Nadya Hernandez RN - 07/10/2024 5:05 PM EST Images from the original note were not included. [id number] Cholecystitis (Presumed) Your belly (abdominal) pain may be due to an inflammation and possible infection in the gallbladder. This is called cholecystitis. The gallbladder is a small sac under the liver. It stores and releases bile. Bile is a fluid made in the liver that helps with digesting fat. Eating fatty food stimulates the gallbladder to contract and release the bile. Gallstones may form in this sac (called cholelit hiasis). Most people don't have symptoms. But if the stone moves and blocks bile from leaving the gallbladder, it can cause pain and even an infection. The infection is called cholecystitis. Bile sludge without a stone can also cause cholecystitis. To help be sure of the diagnosis, you may need to have an ultrasound, CT scan, or other special test. Several things increase the risk of developing gallstones: Being a woman Being obese Being older Losing or gaining weight quickly Having a high-calorie diet Being Using hormone therapy Having diabetes The most common symptoms are: Belly pain, cramping, aching Upset stomach (nausea), vomiting Fever Many illnesses can cause these symptoms. Gallbladder pain is called biliary colic and often starts in the upper right side of your belly. The pain can also be in the top middle part of the belly. Sometimes it can spread to your right shoulder, back, and arm. It often starts suddenly, becomes more intense quickly, and then slowly decreases and goes away over a couple of hours. Older adults and people with diabetes may have trouble showing exactly where the pain is. The pain may occur after meals, especially fatty meals. Home care If you have short periods of gallbladder pain that go away, this is called biliary colic. You may be sent home to rest in bed and follow a clear liquid diet until the pain, upset stomach, and vomiting go away. Call your healthcare provider for a follow-up appointment. Biliary colic can keep coming back and can cause acute cholecystitis. Antibiotics and other medicine may be prescribed. Take these exactly as directed. You can take acetaminophen or ibuprofen for pain, unless you were given a different pain medicine to use. Talk with your provider before using these medicines if you: o Have chronic liver or kidney disease o Ever had a stomach ulcer or GI (gastrointestinal) bleeding o Are taking blood-thinner medicines Fat in your diet makes the gallbladder contract and may cause more pain. Don't have any fat in your diet over the next 2 days. Follow a low-fat diet after that. If you are overweight, a low-fat diet will help you lose weight. Call 911 Call 911 if you have ongoing symptoms that don't get better, or if you get a fever with your symptoms. You may have acute cholecystitis. This is not a condition that should be treated at home. You should go to the emergency room. Often surgery to remove the gallbladder (cholecystectomy) is needed. Follow-up care An infection in the gallbladder is a serious problem and must be watched carefully. Keep any appointments made to have further testing and to see a general surgeon. See your healthcare provider for another exam in the next 1 to 2 days, or as advised. Once cholecystitis has occurred, removing the gallbladder is often needed to prevent a recurrence. You can talk with your provider about this at your follow-up visit. If you were hospitalized for cholecystitis, your gallbladder may be taken out during that same hospital stay. Gallstones that aren't causing infection or symptoms often don't need surgery. When to get medical advice Call your healthcare provider if any of these occur: Repeated vomiting Belly swelling Pain lasting more than 6 hours Fever of 100.4F (38C) or higher, or as advised by your provider Shaking chills Weakness, dizziness, or fainting Dark yellow pee (urine) or poop (stool) that's light guardado or vianney-colored Yellow color of the skin or eyes (jaundice) Chest, arm, back, neck, or jaw pain Last Reviewed Date: 2022 00:00:00 2995-3059 [employer]. All rights reserved. This information is not intended as a substitute for professional medical care. Always follow your healthcare professional's instructions. * Progress Notes - Non-Billable - Lakhwinder Torres DO - 07/10/2024 2:55 PM EST The patient underwent ERCP today for choledocholithiasis. Procedure was notable for a somewhat challenging cannulation requiring a double wire technique. A sphincterotomy was performed and several stones and a large amount of sludge were extracted from the common bile duct. A covered metal stent was placed A prophylactic pancreatic stent was placed Recommendation Patient may have clear liquids Continue IV hydration Broad-spectrum antibiotic coverage for 10 days Avoid use of nonsteroidals and anticoagulation for 1 week Repeat ERCP for stent removal in 6-8 weeks Cholecystectomy per General Surgery Please call with any questions or concerns documented in this encounter Plan of Treatment Upcoming Encounters Date Type Department Care Team (Latest Contact Info) Description 07/24/2024 2:45 PM EST Office Visit General Surgery, [facility] [address] [place] [id number] Ronit Torres MD [address] [place] [address] 08/28/2024 9:00 AM EST Hospital Encounter ENDO [facility], Endoscopy Room [facility] [address] [place], [place] [phone] Lakhwinder Torres, DO [address] [place] [address] 08/28/2024 9:00 AM EST - 08/28/2024 9:30 AM EST Surgery ENDO [facility], Endoscopy Room [facility] [address] [place] [phone] Lakhwinder Torres, DO [address] [place] [address] ENDOSCOPIC RETROGRADE CHOLANGIOPANCREATOGRAPHY (ERCP) W/STENT REMOVAL AND EXCHANGE; INC DILATION, GUIDE WIRE AND SPHINCTEROTOMY 09/17/2024 8:40 AM EST Telemedicine Neurology [address] [place], [place] [phone] Opal Guzman, DO [address] [facility] [place] [address] 10/18/2024 10:00 AM EDT Office Visit [facility] [place] [address] [facility] [place] [phone] Carmen Manuel PA-C [address] [facility] [place] [address] 11/12/2024 10:40 AM EDT Office Visit Nutrition & Weight Management, [facility] [address] [place] [address] Aretha Armstrong PA-C [address] [place] [address] 01/07/2025 10:00 AM EDT Office Visit Audiology, [place] [address] [place] [address] Donna Marshall Au.D. [address] [place] [address] 01/07/2025 10:30 AM EDT Office Visit Otolaryngology/ Head & Neck/Facial Plastic Surgery [address] [place] [address] Lc Flores MD [address] [place] [address] Scheduled Procedures Name Priority Associated Diagnoses Date/Ti [...] 12/10/2023 12/09/2022 Mammogram 2024 COVID-19 Vaccine ( - season) 2024 10/03/2020 Albumin/Creatinine Ratio 09/30/2024 10/01/2023 [...] this encounter Medical Devices Implanted Type Area Jet Man Device Identifier Shelf Expiration Date Model / Serial / Lot Tube Ventilation Mitchell Beveled - [id number] Implanted:Qty: 1 on 01/08/2016 by Emile Cat DO at OR [facility] Left: Ear GYRUS : ENT 11/20/2025 [id number] / / [id number] Patch Hernia Ventralex Med - [id number] Implanted:Qty: 1 on 04/21/2016 by Ronit Torres MD at OR [facility] N/A: Abdomen CR BARD : DAVOL 03/21/2017 [id number] / / [id number] System Ttp Vario Onofre [id number] - [id number] Implanted:Qty: 1 on 09/29/2021 by Lc Flores MD at OR [facility] Left: Ear [employer] 08/25/2025 [id number] / / [id number] Stent Viabil Biliary [id number] - [id number] Implanted:Qty: 1 on 07/10/2024 by Lakhwinder Torres DO at OR [facility] Cardi[employer] Systems [id number] 12/12/2026 [id number] / [id number] / [id number] documented as of this encounter Procedures Procedure Name Priority Date/Time Associated Diagnosis Comments GLUCOSE METER, POINT OF CARE MAURA 07/11/2024 11:30 AM EST GLUCOSE METER, POINT OF CARE MAURA 07/11/2024 7:36 AM EST GLUCOSE METER, POINT OF CARE MAURA 07/11/2024 6:26 AM EST GLUCOSE METER, POINT OF CARE MAURA 07/11/2024 5:48 AM EST COMPREHENSIVE METABOLIC PANEL Routine 07/11/2024 5:01 AM EST CBC Routine 07/11/2024 5:01 AM EST GLUCOSE METER, POINT OF CARE [facility] 07/10/2024 9:35 PM EST GLUCOSE METER, POINT OF CARE MAURA 07/10/2024 4:38 PM EST GLUCOSE METER, POINT OF CARE MAURA 07/10/2024 3:43 PM EST FLUORO ERCP Routine 07/10/2024 3:01 PM EST ERCP, Diagnostic, Specimen collection 07/10/2024 2:11 PM EST Nausea Abdominal pain Elevated LFTs ERCP Routine 07/10/2024 1:09 PM EST GLUCOSE METER, POINT OF CARE [facility] 07/10/2024 12:15 PM EST GLUCOSE METER, POINT OF CARE [facility] 07/10/2024 11:30 AM EST HEMOGLOBIN A1C Routine 07/10/2024 10:27 AM EST COMPREHENSIVE METABOLIC PANEL Routine 07/10/2024 10:27 AM EST PT INR Routine 07/10/2024 10:27 AM EST CBC Routine 07/10/2024 10:27 AM EST documented in this encounter Results * (ABNORMAL) GLUCOSE METER, POINT OF CARE (07/11/2024 11:30 AM EST) Pathologist [facility] GLUCOSE - POCT 62(L) 70 - 120 mg/dL 07/11/2024 12:19 PM EST [facility] Blood Whole blood specimen / Unknown 07/11/2024 11:30 AM EST 07/11/2024 12:19 PM EST us Ishmail Saccoh DO LAB POINT OF CARE TE ST DOCKED DEVICE UNSOLICITED RESULTS Final Result Performing Organization Address [facility] Co de Phone Number [facility] [address] [place] [address] * GLUCOSE METER, POINT OF CARE (07/11/2024 7:36 AM EST) GLUCOSE - POCT 106 70 - 120 mg/dL 07/11/2024 7:45 AM EST [facility] Blood Whole blood specimen / Unknown 07/11/2024 7:36 AM EST 07/11/2024 7:45 AM EST us Demarmayi Hoang DO LAB POINT OF CARE TE ST DOCKED DEVICE UNSOLICITED RESULTS Final Result Performing Organization Address [facility] Phone Number [facility] [address] [place] [address] * GLUCOSE METER, POINT OF CARE (07/11/2024 6:26 AM EST) GLUCOSE - POCT 76 70 - 120 mg/dL 07/11/2024 6:30 AM EST [facility] Blood Whole blood specimen / Unknown 07/11/2024 6:26 AM EST 07/11/2024 6:30 AM EST us Albert Mora MD LAB POINT OF CARE TEST DOCKED DEVICE UNSOLICITED RESULTS Final Result Performing Organization Address [facility] de Phone Number [facility] [address] [place] [address] * (ABNORMAL) GLUCOSE METER, POINT OF CARE (07/11/2024 5:48 AM EST) GLUCOSE - POCT 63(L) 70 - 120 mg/dL 07/11/2024 6:30 AM EST [facility] Blood Whole blood specimen / Unknown 07/11/2024 5:48 AM EST 07/11/2024 6:30 AM EST us Albert Mora MD LAB POINT OF CARE TEST DOCKED DEVICE UNSOLICITED RESULTS Final Result [facility] [address] [place] [address] * (ABNORMAL) COMPREHENSIVE METABOLIC PANEL (07/11/2024 5:01 AM EST) BUN 4(L) 6 - 20 mg/dL 07/11/2024 5:35 AM EST [facility] CREATININE 0.7 0.5 - 1.0 mg/dL 07/11/2024 5:35 AM EST [facility] EGFR >90 >=60 mL/min 07/11/2024 5:35 AM EST [facility] Comment:eGFR is calculated b ased on the CKD-EPI 2020 equation. SODIUM 137 135 - 146 mmol/L 07/11/2024 5:35 AM EST [facility] POTASSIUM 3.9 3.5 - 5.1 mmol/L 07/11/2024 5:35 AM EST [facility] CHLORIDE 109(H) 98 - 107 mmol/L 07/11/2024 5:35 AM EST [facility] CO2 19(L) 22 - 32 mmol/L 07/11/2024 5:35 AM EST [facility] ANION GAP 9 7 - 15 mmol/L 07/11/2024 5:35 AM EST [facility] GLUCOSE 69(L) 70 - 120 mg/dL 07/11/2024 5:35 AM EST [facility] Albumin 3.1(L) 3.8 - 5.0 g/dL 07/11/2024 5:35 AM EST [facility] AST 167(H) 10 - 35 U/L 07/11/2024 5:35 AM EST [facility] Alkaline Phosphatase 93 35 - 130 U/L 07/11/2024 5:35 AM EST [facility] Bilirubin, Total 1.9(H) <=1.2 mg/dL 07/11/2024 5:35 AM EST [facility] CALCIUM 7.8(L) 8.4 - 10.2 mg/dL 07/11/2024 5:35 AM EST [facility] Protein 5.1(L) 6.0 - 8.3 g/dL 07/11/2024 5:35 AM EST LABORATORY [facility] ALT 608(H) 10 - 35 U/L 07/11/2024 5:35 AM EST LABORATORY GL Blood Venous blood specimen / Unknown Venipuncture / Unknown 07/11/2024 5:01 AM EST 07/11/2024 5:10 AM EST Albert Mora MD LAB BLOOD ORDERABLES Final Result LAB[facility] [address] [place] [address] * (ABNORMAL) CBC (07/11/2024 5:01 AM EST) WBC 4.92 4.00 - 10.80 K/uL 07/11/2024 5:14 AM EST LABORATORY [facility] RBC 3.35 3.85 - 5.15 M/uL 07/11/2024 5:14 AM EST LAB[facility]ORY [facility] HGB 10.1(L) 12.0 - 15.3 g/dL 07/11/2024 5:14 AM EST LABORATORY [facility] HCT 31.2(L) 36.0 - 45.2 % 07/11/2024 5:14 AM EST LABORATORY [facility] MCV 93.1 81.5 - 97.5 fL 07/11/2024 5:14 AM EST LABORATORY [facility] MCH 30.1 27.0 - 34.0 pg 07/11/2024 5:14 AM EST LABORATORY [facility] MCHC 32.4 32.0 - 36.0 g/dL 07/11/2024 5:14 AM EST LABORATORY [facility] RDW 13.2 11.5 - 15.5 % 07/11/2024 5:14 AM EST LABORATORY [facility] PLT 150 140 - 400 K/uL 07/11/2024 5:14 AM EST LABORATORY [facility] MPV 10.3 6.6 - 11.1 fL 07/11/2024 5:14 AM EST LABORATORY [facility] nRBCs 0 <=0 /100 WBCs 07/11/2024 5:14 AM EST LAB[facility]ORY [facility] Blood Venous blood specimen / Unknown Venipuncture / Unknown 07/11/2024 5:01 AM EST 07/11/2024 5:10 AM EST Albert Mora MD LAB BLOOD ORDERABLES Final Result Performing Organization Address City/[facility]/ZIP Co de Phone Number LABORATORY [address] [address] * GLUCOSE METER, POINT OF CARE (07/10/2024 9:35 PM EST) GLUCOSE - POCT 89 70 - 120 mg/dL 07/10/2024 9:41 PM EST [facility] Blood Whole blood specimen / Unknown 07/10/2024 9:35 PM EST 07/10/2024 9:41 PM EST us Albert Mora MD LAB POINT OF CARE TEST DOCKED DEVICE UNSOLICITED RESULTS Final Result Performing Organization Address [facility] Phone Number [facility] [address] [place] [phone] * GLUCOSE METER, POINT OF CARE (07/10/2024 4:38 PM EST) GLUCOSE - POCT 87 70 - 120 mg/dL 07/10/2024 4:40 PM EST [facility] Blood Whole blood specimen / Unknown 07/10/2024 4:38 PM EST 07/10/2024 4:40 PM EST us Albert Mora MD LAB POINT OF CARE TEST DOCKED DEVICE UNSOLICITED RESULTS Final Result Performing Organization Address [facility] Phone Number [facility] [address] [place] [phone] * GLUCOSE METER, POINT OF CARE (07/10/2024 3:43 PM EST) GLUCOSE - POCT 100 70 - 120 mg/dL 07/10/2024 3:46 PM EST [facility] Blood Whole blood specimen / Unknown 07/10/2024 3:43 PM EST 07/10/2024 3:46 PM EST us Albert Mora MD LAB POINT OF CARE TEST DOCKED DEVICE UNSOLICITED RESULTS Final Result [facility] [address] [place] [address] * FLUORO ERCP (07/10/2024 3:01 PM EST) Narrative Scheduling, Silent - 07/10/2024 3:01 PM EST This procedure will not be read by a Radiologist. Please see operative note. us Lakhwinder Torres DO RAD FLUOROSCOPY Final Result * ERCP (07/10/2024 1:09 PM EST) 07/10/2024 1:09 PM EST Narrative Procedure Note Mirza Junior MD - 07/10/2024 1:09 PM EST [facility] Patient Name: Otilia Campa Procedure Date: 07/10/2024 1:09 PM Date of : 1985 Admit Type: Outpatient Note Status:Finalized Date of : 1985 Admit Type: Outpatient Age: 39 Room: OR 1 Gender: Female Note Status: Finalized Procedure: ERCP Indications: For therapy of bile duct stone(s), Epigastricabdominal pain Providers: Lakhwinder Torres DO (Doctor) Referring MD: Mirza Junior MD, Albert Mora MD Medicines: General Anesthesia Complications: No immediate complications. Estimated blood loss:Minimal. Procedure: Pre-Anesthesia Assessment: - Prior to the procedure, a History and Physicalwas performed, and patient medications, allergies and sensitivities werereviewed. The patient's tolerance of previous anesthesia was reviewed. - The risks and benefits of the procedure and thesedation options and risks were discussed with the patient. All questions wereanswered and informed consent was obtained. - Patient identification and proposed procedurewere verified prior to the procedure by the physician, the nurse and the tile sprayer.The procedure was verified in the procedure room. - Pre-procedure physical examination revealed nocontraindications to sedation. - ASA Grade Assessment: III - A patient with severesystemic disease. - After reviewing the risks and benefits, thepatient was deemed in satisfactory condition to undergo the procedure. - The anesthesia plan was to use generalanesthesia. - Immediately prior to administration ofmedications, the patient was re-assessed for adequacy to receive sedatives. - The heart rate, respiratory rate, oxygensaturations, blood pressure, adequacy of pulmonary ventilation, and response to care weremonitored throughout the procedure. - The physical status of the patient wasre-assessed after the procedure. After obtaining informed consent, the scope waspassed under direct vision. All instruments were visually inspected immediatelybefore and after removal from the patient to ensure they are fully intact. Throughout the procedure, the patient's bloodpressure, pulse, and oxygen saturations were monitored continuously. The upper GI endoscopywas accomplished without difficulty. The patient tolerated the procedurewell. After obtaining informed consent, the scope was passed under direct vision.All instruments were visually inspected immediately before and after removal fromthe patient to ensure they are fully intact. Throughout the procedure, the patient's bloodpressure, pulse, and oxygen saturations were monitored continuously. The Duodenoscope wasintroduced through the mouth, and advanced to the duodenum and used to injectcontrast into the bile duct and ventral pancreatic duct. Findings & Specimens: The doctor of veterinary medicine film was normal. The esophagus was successfully intubatedunder direct vision without detailed examination of the pharynx, larynx, and associatedstructures, and upper GI tract. The upper GI tract was grossly normal. The major papilla was normal. Theventral pancreatic duct was inadvertently cannulated with the short-nosed traction sphincterotomeand guidewire without any complications. The wire was left in place to aid with biliarycannulation using a double wire technique and later place a prophylactic pancreatic stent. The bile duct wasdeeply cannulated with the short-nosed traction sphincterotome and second angled 0.025 inguidewire. Contrast was injected. I personally interpreted the bile duct images. Contrast extended to theentire biliary tree. The main bile duct was moderately dilated. The largest diameter was 10 mm. Thelower third of the main bile duct contained filling defect(s) thought to be a stone. The biliaryorifice was stenotic. This appeared benign. Biliary sphincterotomy was made with a Jagtome sphincterotomeusing ERBE electrocautery. There was no post-sphincterotomy bleeding. One 5 Fr by 7 cm pancreaticstent with a full external pigtail and no internal flaps was placed 7 cm into the ventral pancreatic duct.Clear fluid flowed through the stent. The stent was in good position. To discover objects, thebiliary tree was swept with a 12 mm balloon starting at the bifurcation. Sludge was swept from the duct.A few green pigmented stones and a large amount of thick bile/sludge was removed. Due to the distalstricture and the large amount of thick bile, one 10 Fr by 6 cm covered metal stent was placed 6 cminto the common bile duct ([place] Viabil, [id number], [id number]) for drainage and stricture remodeling.Bile flowed through the stent. The stent was in good position. The endoscope was withdrawn from thepatient. Indomethacin 100 mg was given via suppository to decrease the risk of post-ERCP pancreatitis(PEP). Impression: - The major papilla appeared normal. - Choledocholithiasis and papillary stenosis wasfound. Complete removal was accomplished by biliary sphincterotomy and balloonextraction and placement of a covered metal stent. - One prophylactic pancreatic stent was placed intothe ventral pancreatic duct. - Indomethacin given to decrease risk of post-ERCPpancreatitis. Recommendation: - Avoid aspirin and nonsteroidal anti-inflammatorymedicines for 1 week. - Clear liquid diet today. - Use broad spectrum antibiotics for 10 days. - Repeat ERCP in 6-8 weeks to remove stent. - Cholecystectomy per General Surgery. Lakhwinder Torres DO 07/10/2024 3:07:50 PM This report has been signed electronically. Estimated Blood Loss: Estimated blood loss was minimal. us Myranda Zamorano PA-C GASTRO UPPER Final R esult * GLUCOSE METER, POINT OF CARE (07/10/2024 12:15 PM EST) GLUCOSE - POCT 109 70 - 120 mg/dL 07/10/2024 12:22 PM EST [facility] Blood Whole blood specimen / Unknown 07/10/2024 12:15 PM EST 07/10/2024 12:21 PM EST Albert Mora MD LAB POINT OF CARE TEST DOCKED DEVICE UNSOLICITED RESULTS Final Result Performing Organization Address [facility] Co de Phone Number [facility] [address] [place] [address] * (ABNORMAL) GLUCOSE METER, POINT OF CARE (07/10/2024 11:30 AM EST) GLUCOSE - POCT 63(L) 70 - 120 mg/dL 07/10/2024 11:48 AM EST [facility] Blood Whole blood specimen / Unknown 07/10/2024 11:30 AM EST 07/10/2024 11:48 AM EST Albert Mora MD LAB POINT OF CARE TEST DOCKED DEVICE UNSOLICITED RESULTS Final Result Performing Organization Address [facility] Phone Number [facility] [address] [place] [address] * HEMOGLOBIN A1C (07/10/2024 10:27 AM EST) [facility] Hemoglobin A1C 4.7 4.0 - 5.6 % 07/10/2024 4:45 PM EST [facility]ATORY [facility] Comment:The use of HbA1c to monitor glycemic status is based on normal hemoglobin and HbA composition. This test should not be used in patients with abnormal hemoglobin that affects the half life of the red blood cell or the in vivo glycation rates. Estimated Average Glucose 88 <126 mg/dL 07/10/2024 4:45 PM EST LABORATORY [facility] Blood Venous blood specimen / Unknown Venipuncture / Unknown 07/10/2024 10:27 AM EST 07/10/2024 10:32 AM EST Albert Mora MD LAB BLOOD ORDERABLES Final Result Performing Organization Address [place]/[facility] Co de Phone Number LABORATORY [facility] [address] [place] [address] * PT INR (07/10/2024 10:27 AM EST) Prothrombin Time 14.8 11.6 - 15.2 seconds 07/10/2024 10:50 AM EST LABORATORY [facility] INR 1.1 0.8 - 1.2 07/10/2024 10:50 AM EST [facility] Blood Venous blood specimen / Unknown Venipuncture / Unknown 07/10/2024 10:27 AM EST 07/10/2024 10:32 AM EST Narrative LABORATORY [facility] - 07/10/2024 10:50 AM EST Warfarin Therapy INR: 2.0-3.0 conventional anticoagulation INR: 2.5-3.5 high intensity anticoagulation us Albert Mora MD LAB BLOOD ORDERABLES [place] [address] * (ABNORMAL) COMPREHENSIVE METABOLIC PANEL (07/10/2024 10:27 AM EST) Pathologist [facility] BUN 6 6 - 20 mg/dL 07/10/2024 11:15 AM EST LABORATORY GL CREATININE 0.7 0.5 - 1.0 mg/dL 07/10/2024 11:15 AM EST LABORATORY GL EGFR >90 >=60 mL/min 07/10/2024 11:15 AM EST [facility]ORY [facility] Comment:eGFR is calculated b ased on the CKD-EPI 2020 equation. SODIUM 140 135 - 146 mmol/L 07/10/2024 11:15 AM EST LABORATORY GL POTASSIUM 3.5 3.5 - 5.1 mmol/L 07/10/2024 11:15 AM EST LABORATORY GL CHLORIDE 110(H) 98 - 107 mmol/L 07/10/2024 11:15 AM EST LABORATORY GL[facility] CO2 20(L) 22 - 32 mmol/L 07/10/2024 11:15 AM EST LABORATORY GL[facility] ANION GAP 10 7 - 15 mmol/L 07/10/2024 11:15 AM EST LABORATORY GL GLUCOSE 77 70 - 120 mg/dL 07/10/2024 11:15 AM EST LABORATORY GL[facility] Albumin 3.6(L) 3.8 - 5.0 g/dL 07/10/2024 11:15 AM EST LABORATORY GL[facility] AST 524(H) 10 - 35 U/L 07/10/2024 11:15 AM EST LABORATORY GL[facility] Alkaline Phosphatase 115 35 - 130 U/L 07/10/2024 11:15 AM EST LABORATORY GL[facility] Bilirubin, Total 4.7(H) <=1.2 mg/dL 07/10/2024 11:15 AM EST LABORATORY GL[facility] CALCIUM 8.0(L) 8.4 - 10.2 mg/dL 07/10/2024 11:15 AM EST LABORATORY GL[facility] Protein 5.8(L) 6.0 - 8.3 g/dL 07/10/2024 11:15 AM EST LABORATORY GL[facility] ALT 983(H) 10 - 35 U/L 07/10/2024 11:15 AM EST LABORATORY [facility] Blood Venous blood specimen / Unknown Venipuncture / Unknown 07/10/2024 10:27 AM EST 07/10/2024 10:32 AM EST Albert Mora MD LAB BLOOD ORDERABLES Final Result LABORATORY [address] [address] * (ABNORMAL) CBC (07/10/2024 10:27 AM EST) WBC 4.23 4.00 - 10.80 K/uL 07/10/2024 10:39 AM EST LABORATORY GL RBC 3.76 3.85 - 5.15 M/uL 07/10/2024 10:39 AM EST LABORATORY GL HGB 11.3(L) 12.0 - 15.3 g/dL 07/10/2024 10:39 AM EST LABORATORY GL[facility] HCT 35.2(L) 36.0 - 45.2 % 07/10/2024 10:39 AM EST LABORATORY GL[facility] MCV 93.6 81.5 - 97.5 fL 07/10/2024 10:39 AM EST LABORATORY GL[facility] MCH 30.1 27.0 - 34.0 pg 07/10/2024 10:39 AM EST LABORATORY GL MCHC 32.1 32.0 - 36.0 g/dL 07/10/2024 10:39 AM EST LABORATORY [facility] RDW 13.6 11.5 - 15.5 % 07/10/2024 10:39 AM EST LABORATORY [facility] PLT 161 140 - 400 K/uL 07/10/2024 10:39 AM EST LABORATORY [facility] MPV 10.0 6.6 - 11.1 fL 07/10/2024 10:39 AM EST LABORATORY [facility] nRBCs 0 <=0 /100 WBCs 07/10/2024 10:39 AM EST LAB[facility]ORY [facility] Blood Venous blood specimen / Unknown Venipuncture / Unknown 07/10/2024 10:27 AM EST 07/10/2024 10:32 AM EST Albert Mora MD LAB BLOOD ORDERABLES Final Result LABORATORY [facility] [address] [place] [address] documented in this encounter Visit Diagnoses Diagnosis Choledocholithiasis- Primary Calculus of bile duct without mention of cholecystitis or obstruction Choledocholithiasis Calculus of bile duct without mention of cholecystitis or obstruction Chest pain Chest pain, unspecified Type 2 diabetes mellitus with hemoglobin A1c goal of less than 7.0% (HCC) Mood disorder (HCC) Unspecified episodic mood disorder Prediabetes Other abnormal glucose Hyperinsulinemia Other specified hypoglycemia Elevated bilirubin Jaundice, unspecified, not of Headache Elevated liver enzymes Nonspecific elevation of levels of transaminase or lactic acid dehydrogenase (LDH) Polycystic ovarian syndrome Polycystic ovaries Irritable bowel syndrome Cholelithiasis Calculus of gallbladder without mention of cholecystitis or obstruction Encounter for removal of biliary stent documented in this encounter Administered Medications Inactive Administered Medications - up to 3 most recent administrations Medication Order MAR Action Action Date Dose Rate Site Acetaminophen (Tylenol) supp 650 mg 650 mg, Rectal, Q6H PRN Use if patient unable to take oral acetaminophen for mild pain, Starting on Tue07/10/24 at 1027, Until Tue07/11/24 at 181, Maximum of 4 grams (4000mg) per day. Acetaminophen (Tylenol) tab 650 mg 650 mg, Oral, Q6H PRN Pain, Mild, Fever >38C(100.5F), Starting on Tue07/10/24 at 0933, Until Tue07/11/24 at 1819, Maximum of 4 grams (4000 mg) per day. Given 07/11/2024 6:09 AM EST 650 mg Bisacodyl (Dulcolax) supp 10 mg 10 mg, Rectal, DAILY PRN Constipation, Starting on Tue07/13/24 at 0933, Until Tue07/11/24 at 181, Administer if no bowel movement within past 72 hours and patient unable to take oral medications. Bisacodyl (Dulcolax) tab 5 mg 5 mg, Oral, DAILY PRN Constipation, Starting on Tue07/13/24 at 0933, Until Tue07/11/24 at 181, Administer in addition to polyethylene glycol and senna-docusate if no bowel movement in past 72 hours. CYANOCOBALAMIN (vitamin B-12) tab 1,000 mcg 1,000 mcg, Oral, Daily(AM), First dose on Tue07/10/24 at 1015, Until Discontinued Given 07/11/2024 9:10 AM EST 1,000 mcg Given 07/10/2024 11:07 AM EST 1,000 mcg FLUoxetine (PROzac) cap 10 mg 10 mg, Oral, Daily(AM), First dose on Tue07/10/24 at 1015, Until Discontinued Given 07/11/2024 9:10 AM EST 10 mg Given 07/10/2024 11:07 AM EST 10 mg glucagon (Glucagen) inj 1 mg 1 mg, Intramuscular, PRN Hypoglycemia, Other, If patient is unresponsive, or NPO and has no IV access, Starting on Tue07/10/24 at 0932, Until Tue07/11/24 at 181, NPO and no IV access with either 1) blood glucose less than 100 mg/dL and symptomatic OR 2) blood glucose less than 70 mg/dL and asymptomatic Given 07/10/2024 2:37 PM EST 1 mg glucose chew tab 16 g 16 g, Oral, PRN Hypoglycemia, Other, For blood glucose 54 - 69 mg/dL or 70 - 100 mg/dL with symptoms and patient alert without difficulty chewing/swallowing., Starting on Tue07/10/24 at 0932, Until Tue07/11/24 at 181 Given 07/10/2024 11:35 AM EST 16 g Indomethacin (Indocin) 100 mg supp 100 mg, Rectal, ONCE, On Tue07/10/24 at 1500, For 1 doseIndications:Choledocholithia sis Given 07/10/2024 3:00 PM EST 100 mg Isolyte-S pH 7.4 infusion Intravenous, at 100 mL/hr, Plasma-LYTE 148, isolyte-S, and isolyte-S pH 7.4 are considered equivalent - including for MAR barcode scanning., CONTINUOUS, Starting on Tue07/10/24 at 1015, Until Tue07/11/24 at 1043 Rate Verify 07/11/2024 4:58 AM EST 100 mL/hr Rate Verify 07/11/2024 2:26 AM EST 100 mL/hr New Bag 07/11/2024 12:25 AM EST 100 mL/hr morphine sulfate inj 2 mg 2 mg, IV Push, Q3H PRN Pain, Severe, Pain, Moderate, Starting on Tue07/10/24 at 0934, Until Tue07/11/24 at 1113 Given 07/10/2024 4:24 PM EST 2 mg Given 07/10/2024 11:07 AM EST 2 mg morphine sulfate inj 2 mg 2 mg, IV Push, Q3H PRN Pain, Severe, Starting on Tue07/11/24 at 1112, Until Tue07/11/24 at 1819 omeprazole (PriLOSEC) cap 20 mg 20 mg, Oral, BID (.AM/PM), First dose on Tue07/11/24 at 2100, Until Discontinued, This med should NOT be Crushed or Chewed oxybutynin XL (Ditropan XL) tab 5 mg 5 mg, Oral, Daily(AM), First dose on Tue07/10/24 at 1015, Until Discontinued, This med should NOT be Crushed or Chewed Given 07/11/2024 9:10 AM EST 5 mg Given 07/10/2024 11:07 AM EST 5 mg oxyCODONE (Oxy IR) tab 5 mg 5 mg, Oral, Q4H PRN Pain, Moderate, Starting on Tue07/10/24 at 1744, Until Tue07/11/24 at 1819 Given 07/11/2024 10:55 AM EST 5 mg Given 07/10/2024 5:53 PM EST 5 mg Pantoprazole (Protonix) inj 40 mg 40 mg, IV Push, Q12H, First dose on Tue07/10/24 at 1030, Until Discontinued, IV push instructions: Flush I.V. Line before and after administration. In-line filter not required. 2-minute infusion: The volume of reconstituted solution (4mg/ml) to be injected may be administered intravenously over at least 2 minutes. ( Dilute each vial with 10 ml of 0.9% saline PF) Given 07/11/2024 9:10 AM EST 40 mg Given 07/10/2024 9:45 PM EST 40 mg Given 07/10/2024 11:07 AM EST 40 mg Piperacillin-Tazobactam (Zosyn) 4.5 g in 100 mL NSS ivpb (FOUR hour infusion) IV Piggyback, 4.5 g, Q8HNOW, 15 doses, First dose on Tue07/11/24 at 1515, Last dose on Tue07/16/24 at 0715, Administer over 4 Hours, at 26.25 mL/hr Piperacillin-Tazobactam (Zosyn) 4.5 g in 100 mL NSS ivpb (HALF hour infusion) IV Piggyback, 4.5 g, ONCE, 1 dose, On Tue07/11/24 at 1045, Administer over 30 Minutes New Bag 07/11/2024 10:58 AM EST 4.5 g 210 mL/hr Polyethylene Glycol 3350 (Miralax) oral powder 17 g 17 g (1 Packet), Oral, DAILY PRN Constipation, Starting on Tue07/10/24 at 0933, Until Tue07/11/24 at 1819, Administer if no bowel movement within past 24 hours. senna-docusate (Senokot-S) 1 Tablet 1 Tablet, Oral, BID PRN Constipation, Starting on Susan 07/12/24 at 0933, Until Tue07/11/24 at 1819, Administer in addition to polyethylene glycol if no bowel movement within past 48 hours. topiramate (topAMAX) tab 100 mg 100 mg, Oral, QHS, First dose on Tue07/10/24 at 2200, Until Discontinued Given 07/10/2024 9:45 PM EST 100 mg documented in this encounter Active and Recently Administered Medications Times are shown in EST. Scheduled Medication Order 07/09/2024 07/10/2024 07/11/2024 CYANOCOBALAMIN (vitamin B-12) tab 1,000 mcg 1,000 mcg, Oral, Daily(AM), First dose on Tue07/10/24 at 1015, Until Discontinued 110 (Given - Provider: Gwen Ellsworth RN) 0910 (Given - Provider: Tiffany Ma, LAMONT) FLUoxetine (PROzac) cap 10 mg 10 mg, Oral, Daily(AM), First dose on Tue07/10/24 at 1015, Until Discontinued 110 (Given - Provider: Gwen Ellsworth RN) 0910 (Given - Provider: Tiffany Ma, [place]) Indomethacin (Indocin) 100 mg supp (COMPLETED) 100 mg, Rectal, ONCE, On Tue07/10/24 at 1500, For 1 dose 1500 (Given - Provider: Chanelle Keane RN) insulin aspart (NovoLOG) inj Subcutaneous, W/MEALS AND HS, First dose on Tue07/10/24 at 1200, Until Discontinued, MEDIUM DOSE, (Usual starting dose) Insulin sensitivity factor (ISF) = 40 Serum Blood Sugar less than 70 mg/dl (obtain STAT lab blood sugar and notify provider); 151 - 190 mg/dl (1 units); 191 - 230 mg/dl (2 units); 231 - 270 mg/dl (3 units); 271 - 310 mg/dl (4 units); 311 - 350 mg/dl (5 units); 351 - 390 mg/dl (6 units); 391 mg/dl and greater (call provider), Correctional insulin may be given if the patient is NPO. 1200 (No Insulin - Provider: Gwen Ellsworth RN - Reason: Parameter(s) Not Met)1700 (No Insulin - Provider: Gwen Ellsworth RN - Reason: Parameter(s) Not Met)2200 (No Insulin - Provider: Laura Tristan RN - Reason: Parameter(s) Not Met) 0800 (No Insulin - Provider: Tiffany Ma RN - Reason: Parameter(s) Not Met)1200 (No Insulin - Provider: Tiffany Ma RN - Reason: Parameter(s) Not Met) omeprazole (PriLOSEC) cap 20 mg 20 mg, Oral, BID (.AM/PM), First dose on Tue07/11/24 at 2100, Until Discontinued, This med should NOT be Crushed or Chewed oxybutynin XL (Ditropan XL) tab 5 mg 5 mg, Oral, Daily(AM), First dose on Tue07/10/24 at 1015, Until Discontinued, This med should NOT be Crushed or Chewed 1107 (Given - Provider: Gwen Ellsworth RN) 0910 (Given - Provider: Tiffany Ma, [place]) Pantoprazole (Protonix) inj 40 mg (CANCELED) 40 mg, IV Push, Q12H, First dose on Tue07/10/24 at 1030, Until Discontinued, IV push instructions: Flush I.V. Line before and after administration. In-line filter not required. 2-minute infusion: The volume of reconstituted solution (4mg/ml) to be injected may be administered intravenously over at least 2 minutes. ( Dilute each vial with 10 ml of 0.9% saline PF) 1107 (Given - Provider: Gwen Ellsworth RN)2144 (Given - Provider: Laura Tristan, LAMONT) 0910 (Given - Provider: Tiffany Ma, [place]) Piperacillin-Tazobactam (Zosyn) 4.5 g in 100 mL NSS ivpb (FOUR hour infusion) IV Piggyback, 4.5 g, Q8HNOW, 15 doses, First dose on Tue07/11/24 at 1515, Last dose on Tue07/16/24 at 0715, Administer over 4 Hours, at 26.25 mL/hr Piperacillin-Tazobactam (Zosyn) 4.5 g in 100 mL NSS ivpb (HALF hour infusion) (COMPLETED) IV Piggyback, 4.5 g, ONCE, 1 dose, On Tue07/11/24 at 1045, Administer over 30 Minutes 1058 (New Bag - Provider: Tiffany Ma, [place]) topiramate (topAMAX) tab 100 mg 100 mg, Oral, QHS, First dose on Tue07/10/24 at 2200, Until Discontinued 2144 (Given - Provider: Laura Tristan, [place]) Continuous Medication Order 07/09/2024 07/10/2024 07/11/2024 Isolyte-S pH 7.4 infusion (CANCELED) Intravenous, at 100 mL/hr, Plasma-LYTE 148, isolyte-S, and isolyte-S pH 7.4 are considered equivalent - including for MAR barcode scanning., CONTINUOUS, Starting on Tue07/10/24 at 1015, Until Tue07/11/24 at 1043 1106 (New Bag - Provider: Gwen Ellsworth RN)1236 (Stopped - Provider: Laura Tristan RN)1541 (New Bag - Provider: Willow Chandler, LAMONT)1608 (Continue on Pump - Provider: Gwen Ellsworth RN)1626 (Paused - Provider: Laura Tristan RN)1628 (Restarted - Provider: Laura Tristan RN)1738 (Paused - Provider: Laura Tristan RN)1744 (Restarted - Provider: Laura Tristan RN)1934 (Paused - Provider: Laura Tristan RN)1937 (Restarted - Provider: Laura Tristan RN)2147 (Paused - Provider: Laura Tristan RN)2151 (Restarted - Provider: Laura Tristan RN)2242 (Rate Verify - Provider: Laura Tristan RN) 0025 (New Bag - Provider: Laura Tristan RN)0226 (Rate Verify - Provider: Laura Tristan RN)0458 (Rate Verify - Provider: Laura Tristan RN)1043 (Stopped - Provider: Tiffany Ma RN) PRN Medication Order 07/09/2024 07/10/2024 07/11/2024 Acetaminophen (Tylenol) supp 650 mg 650 mg, Rectal, Q6H PRN Use if patient unable to take oral acetaminophen for mild pain, Starting on Tue07/10/24 at 1027, Until Tue07/11/24 at 1819, Maximum of 4 grams (4000mg) per day. Acetaminophen (Tylenol) tab 650 mg 650 mg, Oral, Q6H PRN Pain, Mild, Fever >38C(100.5F), Starting on Tue07/10/24 at 0933, Until Tue07/11/24 at 1819, Maximum of 4 grams (4000 mg) per day. 0609 (Given - Provid er: Laura Tristan RN) Bisacodyl (Dulcolax) supp 10 mg(Linked Group 1) 10 mg, Rectal, DAILY PRN Constipation, Starting on Tue07/13/24 at 0933, Until Tue07/11/24 at 1818, Administer if no bowel movement within past 72 hours and patient unable to take oral medications. Bisacodyl (Dulcolax) tab 5 mg(Linked Group 1) 5 mg, Oral, DAILY PRN Constipation, Starting on Tue07/13/24 at 0933, Until Tue07/11/24 at 1818, Administer in addition to polyethylene glycol and senna-docusate if no bowel movement in past 72 hours. calcium CARBonate (Tums E-X) tab CHEW 750 mg 750 mg, Oral, BID PRN Indigestion, Starting on Tue07/10/24 at 0933, Until Tue07/11/24 at 1818 dextrose 50% inj 25 mL 25 mL, IV Push, PRN Hypoglycemia, Other, For blood glucose 54 - 69 mg/dL or 70 - 100 mg/dL with symptoms AND patient is unresponsive, NPO, OR unable to swallow, Starting on Tue07/10/24 at 0932, Until Tue07/11/24 at 1818, Administer IV. Recheck blood glucose after 15 minutes. Notify provider. dextrose 50% inj 50 mL 50 mL, IV Push, PRN Hypoglycemia, Other, For blood glucose below 54 mg/dL AND patient unresponsive, NPO, OR unable to swallow, Starting on Tue07/10/24 at 0932, Until Tue07/11/24 at 181, Administer IV. Recheck blood glucose in 15 minutes. Notify provider. glucagon (Glucagen) inj 1 mg 1 mg, Intramuscular, PRN Hypoglycemia, Other, If patient is unresponsive, or NPO and has no IV access, Starting on Tue07/10/24 at 0932, Until Tue07/11/24 at 1818, NPO and no IV access with either 1) blood glucose less than 100 mg/dL and symptomatic OR 2) blood glucose less than 70 mg/dL and asymptomatic 1437 (Given - Provider: Myrtle Arias CRNA - Comment: per surgeon order) Glucose (Glutose 15) 40 % gel 15 g of glucose 15 g of glucose, Oral, PRN Hypoglycemia (low sugar), Other, For blood glucose 54 - 69 mg/dL or 70 - 100 mg/dL with symptoms AND patient alert WITH difficulty chewing/swallowing, Starting on Tue07/10/24 at 0932, Until Tue07/11/24 at 1819, Administer gel. Recheck blood glucose after 15 minutes. Notify provider. 37.5 gram tube = 15 grams glucose = 1 each Glucose (Glutose 15) 40 % gel 30 g of glucose 30 g of glucose, Oral, PRN Hypoglycemia (low sugar), Other, For blood glucose below 54 mg/dL AND patient alert WITH difficulty chewing/swallowing, Starting on Tue07/10/24 at 0932, Until Tue07/11/24 at 1819, Administer gel. Recheck blood glucose after 15 minutes. Notify provider. 37.5 gram tube = 15 grams glucose = 1 each glucose chew tab 16 g 16 g, Oral, PRN Hypoglycemia, Other, For blood glucose 54 - 69 mg/dL or 70 - 100 mg/dL with symptoms and patient alert without difficulty chewing/swallowing., Starting on Tue07/10/24 at 0932, Until Tue07/11/24 at 1819 1135 (Given - Provider: Gwen Ellsworth RN) guaiFENesin (Robitussin) oral liquid 200 mg 200 mg, Oral, Q4H PRN Cough, Starting on Tue07/10/24 at 0933, Until Tue07/11/24 at 1819 hydrOXYzine (Atarax) tab 10 mg 10 mg, Oral, QID PRN Anxiety, Starting on Tue07/10/24 at 0929, Until Tue07/11/24 at 1819 melatonin tab 3 mg 3 mg, Oral, HS PRN Insomnia, Starting on Tue07/10/24 at 0933, Until Tue07/11/24 at 1819 Menthol (Timblin) cough drop 1 Lozenge 1 Lozenge, Oral, Q2H PRN Sore throat, Starting on Tue07/10/24 at 0933, Until Tue07/11/24 at 1819 morphine sulfate inj 2 mg (CANCELED) 2 mg, IV Push, Q3H PRN Pain, Severe, Pain, Moderate, Starting on Tue07/10/24 at 0934, Until Tue07/11/24 at 1113 1107 (Given - Provider: Gwen Ellsworth RN)1624 (Given - Provider: Gwen Monge RN) morphine sulfate inj 2 mg 2 mg, IV Push, Q3H PRN Pain, Severe, Starting on Tue07/11/24 at 1112, Until Tue07/11/24 at 181 ondansetron (Zofran) inj 4 mg 4 mg, IV Push, Q6H PRN Nausea, Starting on Tue07/10/24 at 0933, Until Tue07/11/24 at 181 oxyCODONE (Oxy IR) tab 5 mg 5 mg, Oral, Q4H PRN Pain, Moderate, Starting on Tue07/10/24 at 1744, Until Tue07/11/24 at 1818 1753 (Given - Provider: Gwen Ellsworth, RN) 1055 (Given - Provider: Tiffany Ma RN) Polyethylene Glycol 3350 (Miralax) oral powder 17 g(Linked Group 1) 17 g (1 Packet), Oral, DAILY PRN Constipation, Starting on Tue07/10/24 at 0933, Until Tue07/11/24 at 181, Administer if no bowel movement within past 24 hours. senna-docusate (Senokot-S) 1 Tablet(Linked Group 1) 1 Tablet, Oral, BID PRN Constipation, Starting on Tue07/12/24 at 0933, Until Tue07/11/24 at 181, Administer in addition to polyethylene glycol if no bowel movement within past 48 hours. sodium chloride 0.9 % flush/inj 3 mL 3 mL, IV Push, PRN Other, Line Patency, Starting on Tue07/10/24 at 0931, Until Tue07/11/24 at 181, Do not flush if lock, PICC, or central line not in place, IV infusing or unable to flush SUMAtriptan (Imitrex) tab 100 mg 100 mg, Oral, Q2H PRN Headache, Starting on Tue07/10/24 at 0935, Until Tue07/11/24 at 181 Linked Groups Order Group 1: Polyethylene Glycol 3350 (Miralax) oral powder 17 gJump to med 17 g (1 Packet), Oral, DAILY PRN Constipation, Starting on Tue07/10/24 at 0933, Until Tue07/11/24 at 181, Administer if no bowel movement within past 24 hours. And senna-docusate (Senokot-S) 1 TabletJump to med 1 Tablet, Oral, BID PRN Constipation, Starting on Susan 07/12/24 at 0933, Until 07/11/24 at 1819, Administer in addition to polyethylene glycol if no bowel movement within past 48 hours. And Bisacodyl (Dulcolax) tab 5 mgJump to med 5 mg, Oral, DAILY PRN Constipation, Starting on 07/13/24 at 0933, Until 07/11/24 at 1819, Administer in addition to polyethylene glycol and senna- docusate if no bowel movement in past 72 hours. And Bisacodyl (Dulcolax) supp 10 mgJump to med 10 mg, Rectal, DAILY PRN Constipation, Starting on 07/13/24 at 0933, Until 07/11/24 at 1819, Administer if no bowel movement within past 72 hours and patient unable to take oral medications. documented in this encounter Advance Directives * Full Code (Latest Code Status on File) Date Activated Date Inactivated Comments 07/10/2024 9:34 AM 07/11/2024 6:19 PM This order reflects the patients wishes and were consensually agreed upon. Question Answer Comments Discussion of Advance Directives occurred with: Patient Does the patient have a Living Will? No Does the patient have Health Care Power of Attor nemo? No Care Teams Clinical Abstractor Relationship Specialty Start Date End Date Carmen Manuel PA-C PCP - General Physician Electrical Sign Wirer 05/09/24 documented as of this encounter
--- OUTSIDE RECORDS SUMMARY | 2024-07-30 18:20 | External Medical Summary | Summary of Care ---
Author Name Unknown Organization [facility] Address [address] [facility] [place] [address] Phone [phone] Care Team Providers Care Foundry Operator Name Role Phone Carmen Manuel PA-C Primary Care Provider [phone] [phone] Encounter Details Date Type Department Care Team (Late st Contact Info) Description 07/28/2024 Orders Only PATIENT PORTAL DO NOT DELETE THIS DEPT USED BY [place] [id number] Allergies No known active allergiesdocumented as of this encounter (statuses as of 07/28/2024) Medications B-12-SL 1000 MCG Sublingual Tablet Sublingual (Cyanocobalamin) Indications:B12 deficiency Place 1,000 mcg under the tongue in the morning. 90 Tablet 3 4 Active Famotidine 20 MG Oral Tablet (Pepcid)Indicati ons:Acute gastritis, presence of bleeding unspecified, unspecified gastritis type Take 1 Tablet by mouth in the morning and 1 Tablet before bedtime. 180 Tablet 3 4 Active FLUoxetine HCl 10 MG Oral Capsule (PROzac)Indicati [...] Active Mounjaro 5 MG/0.5ML Subcutaneous Solution Pen-injector (Tirzepatide)Ind ications:Type 2 diabetes mellitus with hemoglobin A1c goal of less than 7.0% (HCC) Inject 5 mg under the skin once a week. 2 mL 5 4 Active Additional Information Patient not taking.Reported on 07/24/2024 SUMAtriptan Succinate 100 MG Oral Tablet Take 1 Tablet by mouth as needed for Migraine (take 1 tab by mouth at start of headache, may repeat once after 2 hours; may use up to 2 days per week). 10 Tablet 5 4 Active Topiramate 100 MG Oral Tablet (topAMAX) Take 1 Tablet by mouth every night at bedtime. 30 Tablet 5 4 Active oxyCODONE HCl 5 MG Oral Tablet (Oxy IR) Take 1 Tablet by mouth every 6 hours as needed for Pain, Moderate or Pain, Severe. 16 Tablet 07/11/2024 2:00 PM EST 4 Active Acetaminophen 325 MG Oral Tablet (Tylenol) Take 2 Tablets by mouth every 6 hours as needed for Pain, Mild. 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 file Not [...] Aiden Arguello RN documented in this encounter Plan of Treatment Upcoming Encounters Date Type Department Care Team (Latest Contact Info) Description 08/02/2024 9:00 AM EST Office Visit General Surgery, [facility] [address] [place] [address] Anton Rodriguez MD [address] [place] [address] 08/28/2024 8:45 AM EST Hospital Encounter ENDO [facility], Endoscopy Room [facility] [address] [place] [address] Lakhwinder Torres, DO [address] [place], [place] [address] 08/28/2024 8:45 AM EST - 08/28/2024 9:30 AM EST Surgery ENDO [facility], Endoscopy Room [facility] [address] [place], [place] [address] Lakhwinder Torres, DO [address] [place] [address] ENDOSCOPIC RETROGRADE CHOLANGIOPANCREATOGRAPHY (ERCP) W/STENT REMOVAL AND EXCHANGE; INC DILATION, GUIDE WIRE AND SPHINCTEROTOMY 09/17/2024 8:40 AM EST Telemedicine Neurology [address] [place] [phone] Opal Guzman, [address], [place] [phone] 10/18/2024 10:00 AM EDT Office Visit [facility] [address] [place] [phone] Carmen Manuel PA-C [address] [place] [address] 11/12/2024 10:40 AM EDT Office Visit Nutrition & Weight Management, [facility] [address] [place] [address] Aretha Armstrong PA-C [address] [place] [address] 01/07/2025 10:00 AM EDT Office Visit Audiology, [place] [address], [place] [phone] Donna Marshall Au.D. [address] [place] [address] 01/07/2025 10:30 AM EDT Office Visit Otolaryngology/ Head & Neck/Facial Plastic Surgery [address] [place] [address] Lc Flores MD [address] [place] [address] Scheduled Procedures Name Priority Associated Diagnoses Date/Ti me ENDOSCOPIC RETROGRADE CHOLANGIOPANCREATOGRAPHY (ERCP) W/STENT REMOVAL AND EXCHANGE; INC DILATION, GUIDE WIRE AND SPHINCTEROTOMY Encounter for removal of biliary stent 08/28/2024 8:45 AM EST Health Maintenance Due Date Last Done Comments Lipid Panel 1985 HIV Screening 02/27/1999 Diabetic Eye Exam 02/27/2002 Diabetic Foot Exam 02/27/2002 Hepatitis C Screening 02/27/2002 Hepatitis B Vaccine (1 of 3 - 19+ 3-dose series) 02/27/2003 Pneumococcal Vaccine: Pediatrics (0 to 5 Years) and At-Risk Patients (6 to 18 Years and 19+ Years) (1 of 2 - PCV) 02/27/2003 Pap Smear 09/17/2022 09/17/2019, 11/23, 10/09/2013, Additional history exists Depression Screening 12/10/2023 12/09/2022 Mammogram 2024 COVID-19 Vaccine ( - 2023- season) 2024 10/03/2020 Albumin/Creatinine Ratio 09/30/2024 10/01/2023 [...] this encounter Medical Devices Implanted Type Area Clinic Charge Nurse Device Identifier Shelf Expiration Date Model / Serial / Lot Tube Ventilation Pope Isabeled - [id number] Implanted:Qty: 1 on 01/08/2016 by Emile Cat DO at OR [facility] Left: Ear GYRUS : ENT 11/20/2025 [id number] / / [id number] Patch Hernia Ventralex Med - [id number] Implanted:Qty: 1 on 04/21/2016 by Ronit Torres MD at OR [facility] N/A: Abdomen CR BARD : DAVOL 03/21/2017 [id number] / / [id number] System Ttp Vario Onofre [id number] - [id number] Implanted:Qty: 1 on 09/29/2021 by Lc Flores MD at [place] [facility] Left: Ear [employer] 08/25/2025 [id number] / / [id number] Stent Viabil Biliary [id number] - [id number] Implanted:Qty: 1 on 07/10/2024 by Lakhwinder Torres DO at OR [facility] Humansized [facility] [id number] 12/12/2026 [id number] / [id number] / [id number] documented as of this encounter Advance Directives [...] Power of Attor nemo? No Care Teams Foundry Operator Relationship Specialty Start Date End Date Carmen Manuel PA-C PCP - General Physician Invoice Control Clerk 05/09/24 documented as of this encounter
--- OUTSIDE RECORDS SUMMARY | 2024-07-30 18:20 | External Medical Summary | Summary of Care ---
Author Name Unknown Organization [facility] Address [address] [facility] [place] [address] Phone [phone] Care Team Providers Care Cocoa Butter Filter Operator Name Role Phone Carmen Manuel PA-C Primary Care Provider [phone] Reason for Visit * Reason Onset Date Comments Advice 07/10/2024 Encounter Details Date Type Department Care Team (Late st Contact Info) Description 07/10/2024 Telephone Gastroenterology, [facility] [address] [place] [address] Lakhwinder Torres DO [address] [place] [address] Advice Allergies No known active allergiesdocumented as of [...] at bedtime. 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 with PAT ok for . It looks like pt is already naveen'd 08/28/24 at . * Telephone Encounter - Inna Goldsmith OSA - 07/11/2024 8:59 AM EST Checking with PAT if she can be done at . * Telephone Encounter - Lakhwinder Torres DO - 07/10/2024 2:57 PM EST Patient will need a repeat ERCP for biliary stent removal and a repeat cholangiogram in 6-8 weeks. The patient may be a candidate for Raimundo Tapia documented in this encounter Plan of Treatment Upcoming Encounters Date Type Department Care Team (Latest Contact Info) Description 07/24/2024 2:45 PM EST Office Visit General Surgery, [facility] [address] [place] [address] Ronit Torres MD [address] [place] [address] 08/28/2024 9:00 AM EST Hospital Encounter ENDO [facility], Endoscopy Room [facility] [address] [place] [address] Lakhwinder Torres DO [address] [place] [address] 08/28/2024 9:00 AM EST - 08/28/2024 9:30 AM EST Surgery ENDO [facility], Endoscopy Room [facility] [address] [place] [address] Lakhwinder Torres DO [address] [place] [address] ENDOSCOPIC RETROGRADE CHOLANGIOPANCREATOGRAPHY (ERCP) W/STENT REMOVAL AND EXCHANGE; INC DILATION, GUIDE WIRE AND SPHINCTEROTOMY 09/17/2024 8:40 AM EST Telemedicine Neurology K[address] [place] [address] Opal Guzman, DO [address] [place] [address] 10/18/2024 10:00 AM EDT [facility] [address] [facility] [place] [address] Carmen Manuel PA-C [address] [facility] [place] [address] 11/12/2024 10:40 AM EDT Office Visit Nutrition & Weight Management, [facility] [address] [place] [address] Aretha Armstrong PA-C [address] [place] [address] 01/07/2025 10:00 AM EDT [facility] [address] [place] [address] Donna Marshall Au.D. [address] [place] [address] 01/07/2025 10:30 AM EDT Office Visit Otolaryngology/ Head & Neck/Facial Plastic Surgery [address] [place] [address] Lc Flores MD [address] [place] [address] Scheduled Orders Name Type Priority Associated Diagnoses Orde r Schedule ERCP W/ STENT EXCHANGE Procedures Routine Choledocholithiasis Ordered: 07/10/2024 Scheduled Procedures Name Priority Associated Diagnoses Date/Ti [...] this encounter Medical Devices Implanted Type Area Marketing Sales Representative Device Identifier Shelf Expiration Date Model / Serial / Lot Tube Ventilation Mitchell Beveled - [id number] Implanted:Qty: 1 on 01/08/2016 by Emile Cat DO at OR [facility] Left: Ear GYRUS : ENT 11/20/2025 [id number] / / [id number] Patch Hernia Ventralex Med - [id number] Implanted:Qty: 1 on 04/21/2016 by Ronit Torres MD at OR [facility] N/A: Abdomen CR BARD : DAVOL 03/21/2017 [id number] / / [id number] System Ttp Vario Onofre [id number] - [id number] Implanted:Qty: 1 on 09/29/2021 by Lc Flores MD at OR [facility] Left: Ear [employer] 08/25/2025 [id number] / / [id number] Stent Viabil Biliary [id number] - [id number] Implanted:Qty: 1 on 07/10/2024 by Lakhwinder Torres DO at OR [facility] [id number] 12/12/2026 [id number] / [id number] / [id number] documented as of this encounter Visit Diagnoses Diagnosis Choledocholithiasis- Primary Calculus of bile duct without mention of cholecystitis or obstruction Encounter for removal of biliary stent documented in this encounter Advance Directives * [...] Power of Attor nemo? No Care Teams Cocoa Butter Filter Operator Relationship Specialty Start Date End Date Carmen Manuel PA-C PCP - General Physician Generator Worker 05/09/24 documented as of this encounter
--- OUTSIDE RECORDS SUMMARY | 2024-07-30 18:20 | External Medical Summary ---
Author Name Unknown Address Unknown Organization : Laboratory Report Ordering Provider Test Date Status TRCAEY ZAYAS 07/11/2024 11:30:44 Final Observation Date Value Abnormality Reference (Units ) Status Glucose Point of Care 07/11/2024 11:30:44 62 Below low normal 70-120 (mg/dL) Final Performing Location
--- OUTSIDE RECORDS SUMMARY | 2024-07-30 18:20 | External Medical Summary | Summary of Care ---
Author Name Unknown Organization [facility] Address [address] [place] [address] Phone [phone] Care Team Providers Care Tax Form Preparer Name Role Phone Carmen Sierra PA-C Primary Care Provider [phone] Reason for Visit * Reason Onset Date Comments Appointment 07/11/2024 Encounter Details Date Type Department Care Team (Late st Contact Info) Description 07/11/2024 Telephone Access Center, [place] [address] 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 on file Not [...] PM EST Order RETURN APPT [IP355] (Order [id number]) Waqas Ybarrapatricia 07/10/2024 8:46 AM Admission Description: 39 year old female Department: [facility] Message Patient Name: WAQAS CAMPA([id number]) Sex: Female : 1985 PCP: CARMEN SIERRA Center: [facility] Types of orders made on 07/11/2024: Communication, Diet, IP Post Discharge , Lab, Medications, Point of Care Testing, Point of Care Testing - Unsolicited Results Order Date:07/11/2024 Ordering User:JESSE CRUMP [[id number]] Attending Provider:Jose Newell MD [[id number]] Authorizing Provider: Jesse Crump MD [[id number]] Department:[facility][[id number]] Order Specific Information Order: RETURN APPT [CUSTOM: IP355] Order #: [id number]: 1 Priority: Routine Class: Nursing Unit Department [...] Time Department Released By/Authorizing 07/11/2024 1:[address] [place] [address] Jesse Crump MD (auto-released) Order Providers Authorizing Provider Encounter Provider ([id number]) Jesse Crump MD None Priority and Order [...] Tests Indicated will be Scheduled at a [facility] Facility Encounter View Parent Encounter Reprint Requisition RETURN APPT (Order #[id number]) on 07/11/24 Detailed Information Priority and Order Details Reference Links Acct Guarantor Acct Type [id number] WAQAS CAMPA Personal/Family [1] [id number] KERA CAMPAY Jimenez Personal/Family [1] [id number] KERA CAMPAY Jimenez Personal/Family [1] Service Location Name Address [address] [place] [phone] Currently Active Insurance Payor Plan Subscriber Member ID GHP COMMERCIAL GHP CHOICE NO REF RP-PAPER MILL SUPERINTENDENT GARRISONPATRICIAWAQAS [id number] documented in this encounter Plan of Treatment Upcoming Encounters Date Type Department Care Team (Latest Contact Info) Description 07/12/2024 7:40 AM EST [facility] [address] [place] [phone] Ron Arnett MD [address] [place] [address] 07/24/2024 2:45 PM EST Office Visit General Surgery, [facility] [address] [place] [address] Ronit Torres MD [address] [place] [address] 08/28/2024 9:00 AM EST Hospital Encounter ENDO [facility], Endoscopy Room [facility] [address] [place] [phone] Lakhwinder Torres DO [address] [place] [address] 08/28/2024 9:00 AM EST - 08/28/2024 9:30 AM EST Surgery ENDO [facility], Endoscopy Room [facility] [address] [place] [address] Lakhwinder Torres, DO [address] [place] [address] ENDOSCOPIC RETROGRADE CHOLANGIOPANCREATOGRAPHY (ERCP) W/STENT REMOVAL AND EXCHANGE; INC DILATION, GUIDE WIRE AND SPHINCTEROTOMY 09/17/2024 8:40 AM EST Telemedicine Neurology Abel [address] [place] [address] [place] [address] Opal Guzman DO [address] [place] [address] 10/18/2024 10:00 AM EDT Office Visit [facility] [address] [place] [address] Carmen Sierra PA-C [address] [place] [address] 11/12/2024 10:40 AM EDT Office Visit Nutrition & Weight Management, [facility] [address] [facility] [place] [address] Aretha Armstrong PA-C [facility] [place] [address] 01/07/2025 10:00 AM EDT Office Visit Audiology, [place] [address] [place] [address] Donna Marshall Au.D. [address] [place] [address] 01/07/2025 10:30 AM EDT Office Visit Otolaryngology/ Head & Neck/Facial Plastic Surgery [address] [place] [address] Lc Flores MD [address] [place], [place] [phone] Scheduled Procedures Name Priority Associated Diagnoses Date/Ti [...] this encounter Medical Devices Implanted Type Area Wholesale Diamond Broker Device Identifier Shelf Expiration Date Model / Serial / Lot Tube Ventilation Mitchellmaya Halled - [id number] Implanted:Qty: 1 on 01/08/2016 by Emile Cat DO at OR [facility] Left: Ear GYRUS : ENT 11/20/2025 [id number] / / [id number] Patch Hernia Ventralex Med - [id number] Implanted:Qty: 1 on 04/21/2016 by Ronit Torres MD at OR [facility] N/A: Abdomen CR BARD : DAVOL 03/21/2017 [id number] / / [id number] System Ttp Vario Onofre [id number] - [id number] Implanted:Qty: 1 on 09/29/2021 by Lc Flores MD at [place] [facility] Left: Ear [employer] 08/25/2025 [id number] / / [id number] Stent Viabil Biliary [id number] - [id number] Implanted:Qty: 1 on 07/10/2024 by Lakhwinder Torres DO at OR [facility] CRE Secure ABDIRASHID [id number] 12/12/2026 [id number] / [id number] / [id number] documented as of this encounter Advance Directives [...] Power of Attor nemo? No Care Teams Tax Form Preparer Relationship Specialty Start Date End Date Carmen Sierra PA-C [address] [facility] [place] [address] PCP - General Physician Metal Work Duct Installer 05/09/24 documented as of this encounter
--- OUTSIDE RECORDS SUMMARY | 2024-07-30 18:20 | External Medical Summary ---
Author Name Unknown Address Unknown Organization : Laboratory Report Ordering Provider Test Date Status LAURY SCHREIBER 07/11/2024 06:26:50 Final Observation Date Value Abnormality Reference (Units ) Status Glucose Point of Care 07/11/2024 06:26:50 76 70-120 (mg/dL) Final Performing Location
--- OUTSIDE RECORDS SUMMARY | 2024-07-30 18:20 | External Medical Summary ---
Author Name Unknown Address Unknown Organization K1F:[facility] - [address] [place] [address] Laboratory Report Ordering Provider Test Date Status LAURY SCHREIBER 07/11/2024 05:01:00 Final Observation Date Value Abnormality Reference (Units ) Status WBC, Total 07/11/2024 05:01:00 4.92 4.00-10.80 (K/uL) Final RBC 07/11/2024 05:01:00 3.35 3.85-5.15 (M/uL) Final Hemoglobin 07/11/2024 05:01:00 10.1 Below low normal 12.0-15.3 (g/dL) Final HCT 07/11/2024 05:01:00 31.2 Below low normal 36.0-45.2 (%) Final MCV 07/11/2024 05:01:00 93.1 81.5-97.5 (fL) Final MCH 07/11/2024 05:01:00 30.1 27.0-34.0 (pg) Final MCHC 07/11/2024 05:01:00 32.4 32.0-36.0 (g/dL) Final RDW 07/11/2024 05:01:00 13.2 11.5-15.5 (%) Final Platelets 07/11/2024 05:01:00 150 140-400 (K/uL) Final MPV 07/11/2024 05:01:00 10.3 6.6-11.1 (fL) Final Nucleated erythrocytes/100 leukocytes [Ratio] in Blood by Automated count 07/11/2024 05:01:00 0 <=0 (/100 WBCs) Final Performing Location LABORATORY [facility] - [address] [place] [address]
--- OUTSIDE RECORDS SUMMARY | 2024-07-30 18:20 | External Medical Summary | Summary of Care ---
Author Name Unknown Organization [facility] Address [address] [facility] [place] [address] Phone [phone] Care Team Providers Care Test Administrator Name Role Phone Carmen Manuel PA-C Primary Care Provider [phone] Reason for Visit * Reason Comments NEW PATIENT Multiple ER visits, epigastric pain, gallbladder attack and gallstones, stent placement- with LT hospital - ercp with nadia kamara Encounter Details Date Type Department Care Team (Latest Contact Info) Description 07/24/2024 2:45 PM EST Office Visit General Surgery, [facility] [address] [facility] [place] [address] Ronit Kamara MD [address] [place] [address] Calculus of gallbladder and bile duct without cholecystitis or obstruction* Allergies No known active allergiesdocumented as of this encounter (statuses as of 07/24/2024) Medications B-12-SL 1000 MCG Sublingual Tablet Sublingual [...] as of this encounter (statuses as of 07/24/2024) Active Problems Problem Noted Date Diagnosed Date [...] as of this encounter (statuses as of 07/24/2024) Resolved Problems Problem Noted Date Diagnosed Date [...] as of this encounter (statuses as of 07/24/2024) Immunizations Name Administration Dates Next Due Covid-19 [...] 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 on file 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 on 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 Not on file Not on file documented as of this encounter Last Filed Vital Signs Vital Sign Reading Time Taken Comments Blood Pressure 93/52 07/24/2024 2:42 PM EST Pulse 68 07/24/2024 2:42 PM EST Temperature 36.9 C (98.4 F) 07/24/2024 2:42 PM ES T Respiratory Rate - - Oxygen Saturation - - Inhaled Oxygen Concentration - - Weight 49.7 kg (109 lb 8 oz) 07/24/2024 2:42 PM EST Height - - Body Mass Index 23.7 07/10/2024 8:55 AM EST documented in this [...] Entry Date Author No 07/10/2024 8:55 AM EST White-Ang jason, Aiden Roberts RN documented in this encounter Progress Notes * Ronit Kamara MD - 07/24/2024 3:00 PM EST Chief Complaint: Chief Complaint Patient presents with NEW PATIENT Multiple ER visits, epigastric pain, gallbladder attack and gallstones, stent placement- with LT hospital - ercp with nadia kamara History of Present Illness: Waqas Campa is a 39 year old female who is here to discuss gallbladder removal. I had performed her umbilical hernia repair in 2016 Went to [facility] for abdominal pain. First visit was told it was reflux and given carafate. Went home and returned the next day and was admitted with gallstones and choledocholithiasis. Pain was intense, could not sit down or lay down, nausea and vomiting. No diarrhea and had been constipated for almost 4 days. After the stent was placed, the pain got better and now just has the sensation of a bubble in her mid abdomen. Thinks she may have been having mini gallbladder attacks prior to this. Past Medical History Past Medical History: Diagnosis Date Dysfunction of eustachian tube Eustachian tube dysfunction Irritable bowel syndrome Lumbago Other atopic dermatitis and related conditions Surveillance of previously prescribed contraceptive method Type 2 diabetes mellitus with hemoglobin A1c goal of less than 7.0% ([facility]) 2022-10-05 Adding E11.9-Type 2 diabetes mellitus with hemoglobin A1c goal of less than 7.0% ([facility]) Dx to History Pretty well managed. Past Surgical History Past Surgical History: Procedure Laterality Date CREATE EARDRUM OPENING,GEN'L ANESTH Left 01/08/2016 TYMPANOSTOMY INSERTION TUBE GENERAL ANESTHESIA performed by Emile Cat DO at OR [facility] CREATE EARDRUM OPENING,GEN'L ANESTH Right 10/07/2017 TYMPANOSTOMY INSERTION TUBE GENERAL ANESTHESIA performed by Rodrigo Mcqueen II, MD at OR [facility] EGD, FLEXIBLE, DIAGNOSTIC 02/14/2023 biopsies show mild irritation of stomach/ESOPHAGOGASTRODUODENOSCOPY (EGD), FLEXIBLE, TRANSORAL, DIAGNOSTIC performed by Carmen Quintero MD at ENDOSCOPY [facility] ERCP, DIAGNOSTIC, SPECIMEN COLLECTION N/A 07/10/2024 ENDOSCOPIC RETROGRADE CHOLANGIOPANCREATOGRAPHY (ERCP) DIAGNOSTIC performed by Lakhwinder Kamara DO at OR [facility] INCISION OF EARDRUM x3 last one 1998---(-and tubes) INCISION OF EARDRUM 06/10/2006 and tubes,[facility] MASTOID SURG REVISION,TYMPANOPLASTY Left 09/29/2021 REVISION MASTOIDECTOMY RESULTING IN TYMPANOPLASTY performed by Lc Flores MD [place] [facility] [place]CREEN 10/23/2005 , [facility] REBUILD EARDRUM STRUCTURES Dr. Blue 2007 RECONSTRUCT MIDDLE EAR & MASTOID Left 03/19/2019 TYMPANOPLASTY MASTOIDECTOMY WITH OSSICULAR RECONSTRUCTION performed by Lc Flores MD at [facility] RECONSTRUCT MIDDLE EAR & MASTOID Left 09/29/2021 TYMPANOPLASTY MASTOIDECTOMY INTACT OR RECONSTRUCTED WALL performed by Lc Flores MD at [facility] REMOVAL OF TONSILS, AGE 12+ 09/17/2010 Dr. [place] [facility] REVISE EARDRUM STRUCTURES 09/17/2010 Dr. Denton [facility] REVISE MIDDLE EAR & MASTOID Right 10/07/2017 TYMPANOPLASTY MASTOIDECTOMY WITHOUT OSSICULAR RECONSTRUCTION performed by Rodrigo Mcqueen II, MD at [facility] REVISION OF EARDRUM Right 03/19/2019 MYRINGOPLASTY performed by Lc Flores MD at [place] [facility] UMBIL HERNIA REPAIR (REDUCIBLE) AGE 5+YR 04/21/2016 04/21/2016 repair of umbilical hernia - Luis Enrique Arzate OR - Dr. Ronit Kamara UMBIL HERNIA REPAIR (REDUCIBLE) AGE 5+YR N/A 04/21/2016 REPAIR UMBILICAL HERNIA AGE 5 AND OVER performed by Ronit Kamara MD at OR [facility] Medications: Current Outpatient Medications Medication Sig Dispense Refill B-12-SL 1000 MCG Sublingual Tablet Sublingual (Cyanocobalamin) Place 1,000 mcg under the tongue in the morning. 90 Tablet 3 Famotidine 20 MG Oral Tablet (Pepcid) Take 1 Tablet by mouth in the morning and 1 Tablet before bedtime. 180 Tablet 3 FLUoxetine HCl 10 MG Oral Capsule (PROzac) TAKE 1 CAPSULE BY MOUTH EVERY MORNING 90 Capsule 3 oxyBUTYnin Chloride ER 5 MG Oral Tablet Extended Release 24 Hour Take 1 Tablet by mouth in the morning. Do not cut, crush or chew. 30 Tablet 11 hydrOXYzine HCl 10 MG Oral Tablet (Atarax) take 1 tablet by mouth every 6 hours if needed for anxiety 40 Tablet 2 SUMAtriptan Succinate 100 MG Oral Tablet Take 1 Tablet by mouth as needed for Migraine (take 1 tab by mouth at start of headache, may repeat once after 2 hours; may use up to 2 days per week). 10 Tablet 5 Topiramate 100 MG Oral Tablet (topAMAX) Take 1 Tablet by mouth every night at bedtime. 30 Tablet 5 oxyCODONE HCl 5 MG Oral Tablet (Oxy IR) Take 1 Tablet by mouth every 6 hours as needed for Pain, Moderate or Pain, Severe. 16 Tablet 0 Acetaminophen 325 MG Oral Tablet (Tylenol) Take 2 Tablets by mouth every 6 hours as needed for Pain, Mild. 30 Tablet 0 Mounjaro 5 MG/0.5ML Subcutaneous Solution Pen-injector (Tirzepatide) Inject 5 mg under the skin once a week. (Patient not taking: Reported on 07/24/2024) 2 mL 5 No current facility-administered medications for this visit. 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 Employer: [employer] Tobacco Use Smoking status: Former Current packs/day: 0.00 Average packs/day: 0.5 packs/day for 5.0 years (2.5 ttl pk-yrs) Types: Cigarettes Start date: 09/06/2005 Quit date: 09/06/2010 Years since quittin.8 Smokeless tobacco: Never Vaping Use Vaping status: Never Used Substance and Sexual Activity Alcohol use: Yes Comment: rarely Drug use: No Sexual activity: Yes Partners: Male control/protection: Condom Other Topics Concern Not on file Social History Narrative Not on file Social Needs Financial Resource Strain: Not on file Food Insecurity: No Food Insecurity (12/09/2022) Hunger Vital Sign Worried About Running Out of Food in the Last Year: Never true Ran Out of Food in the Last Year: Never true Transportation Needs: Not on file Social Connections: Not on file Housing Stability: Not on file ROS: GEN: no weight loss, fever, fatigue HEENT: no changes in vision or hearing, no sinus problems, no sore throat, no hoarseness RESPIRATORY: no cough, wheezing, SOB or change in breathing CARDIOVASCULAR: no exertional chest pain, dyspnea, palpitations GI: see HPI , otherwise negative : no dysuria, hematuria, frequency MUSCULOSKELETAL: no change in joint pains, no new arthritis PSYCHIATRIC: no significant anxiety or depression, unchanged sleep pattern HEME: no bleeding tendency, no clotting tendency NEURO: no significant headache, no seizures , no tremors SKIN: no new rashes, no itching Physical Exam: Blood pressure 93/52, pulse 68, temperature 36.9 C (98.4 F), weight 49.7 kg (109 lb 8 oz), not currently . Constitutional: alert, healthy Head: normocephalic, atraumatic Eyes: conjunctiva non-injected, sclera white Ears: pinna normal shape and color Lungs: clear to auscultation, breath sounds are equal and symmetric Heart: regular rate & rhythm and no murmur, gallops or rubs Abdomen: soft, tender in epigastrium Back: normal curvature Extremities: no edema Neuro: alert, gait normal, motor normal Imaging: [place], [place] [phone] Ultrasound Report Patient: WAQAS CAMPA Admit Date: 07/09/24 MR#: [id number] Address1: [address] [place] [address] Acct ID:[id number] Address2: Date: 1985 [facility] Zip: [place] [address] Age: 39 Location: ED Sex: F Room/Bed: Att Phy: Diagnosis: BREAST BONE PAIN, ABD PAIN, BACK PAIN, NAUSEA Sita Phy: Jeovanny Nunez MD Service Date: 07/09/24 Fam Phy: Interpreting Phy: Ann Padgett MD Admit Phy: Ordering Phy: Sagrario Tavarez PA-C cc: ~ EXAM: US gallbladder CLINICAL HISTORY: RUQ pain, nausea, vomiting. TECHNIQUE: Ultrasound examination of the RUQ was performed using machado-scale and duplex. The following structures were specifically evaluated: COMPARISON: None. FINDINGS: Liver: Liver size: [Measurements in length [...] 3. Dilated CBD with distal impacted stone. Lab: LFT's elevated Impression: Waqas Campa is a 39 year old female with cholelithiasis and recent choledocholithiasis. I feel that the patient is a good candidate for laparascopic cholecystectomy. Given her recent ERCP and stent placement, she likely would be better done in the hospital setting. We will refer her over to my partner Dr. Rodriguez to be done at [facility]. Her liver tests were elevated althoughimproving. We will recheck these. In addition she was anemic on her last CBC. I have ordered another CBC to be done preoperatively. Treatment Plan: Laparascopic cholecystectomy - will schedule with Dr. Rodriguez. No charge visit for today. Ronit Kamara M.D. 07/24/2024 4:20 PM documented in this encounter Nursing Notes * Ryann Robertson LPN - 07/24/2024 2:42 PM EST Patient identified by name and date of . Chief Complaint Patient presents with NEW PATIENT Multiple ER visits, epigastric pain, gallbladder attack and gallstones, stent placement- with LT hospital - ercp with nadia kamara Pt is feeling slightly better now, still gets epigastric pain/bubble feeling, pain doesn't radiate anywhere, Pt stating that she kept getting told she had acid reflux and sending her home, so ended up in LT ER on 07/10/2024 for epigastric pain that would not subside or go away no matter what she took. Has ERCP with stent removal with asad on 08/28/2023 documented in this encounter Plan of Treatment Upcoming Encounters Date Type Department Care Team (Latest Contact Info) Description 08/02/2024 9:00 AM EST Office Visit General Surgery, [facility] [address] [place] [address] Anton Rodriguez MD [address] [place] [address] 08/28/2024 8:45 AM EST Hospital Encounter ENDO OSSC, Endoscopy Room [facility] [address] [place] [phone] Lakhwinder Kamara, [address] [place] [address] 08/28/2024 8:45 AM EST - 08/28/2024 9:30 AM EST Surgery ENDO OSSC, Endoscopy Room [facility] [address] [place] [address] Lakhwinder Kamara, [address] [place] [address] ENDOSCOPIC RETROGRADE CHOLANGIOPANCREATOGRAPHY (ERCP) W/STENT REMOVAL AND EXCHANGE; INC DILATION, GUIDE WIRE AND SPHINCTEROTOMY 09/17/2024 8:40 AM EST Telemedicine Neurology [address] [place] [address] [place] [phone] Opal Guzman DO [address] [place] [address] 10/18/2024 10:00 AM EDT Office Visit [facility][Note 3] [address] [facility] [place] [phone] Carmen Manuel PA-C [address] [facility] [place] [address] 11/12/2024 10:40 AM EDT Office Visit Nutrition & Weight Management, [facility] [address] [facility] [place] [place] [address] Aretha Armstrong PA-C [facility] [address] 01/07/2025 10:00 AM EDT Office Visit Audiology, [place] [address] [facility] [place] [address] Donna Marshall Au.D. [address] [place] [address] 01/07/2025 10:30 AM EDT Office Visit Otolaryngology/ Head & Neck/Facial Plastic Surgery [address] [place] [address] Lc Flores MD [address] [place] [address] Scheduled Orders Name Type Priority Associated Diagnoses Orde r Schedule CBC WITH WBC DIFFERENTIAL AND ANEMIA REFLEX WORKUP Lab Routine Calculus of gallbladder and bile duct without cholecystitis or obstruction Expected: 07/24/2024, Expires: 07/24/2025 COMPREHENSIVE METABOLIC PANEL Lab Routine Calculus of gallbladder and bile duct without cholecystitis or obstruction Expected: 07/24/2024, Expires: 07/24/2025 Scheduled Procedures Name Priority Associated Diagnoses Date/Ti [...] Screening 12/10/2023 12/09/2022 Mammogram 2024 COVID-19 Vaccine (2023- season) 2024 10/03/2020 Albumin/Creatinine Ratio 09/30/2024 10/01/2023 [...] this encounter Medical Devices Implanted Type Area Supervisor Central Supply Device Identifier Shelf Expiration Date Model / Serial / Lot Tube Ventilation Pope Anthony - [id number] Implanted:Qty: 1 on 01/08/2016 by Emile Cat DO at OR [facility] Left: Ear GYRUS : ENT 11/20/2025 [id number] / / [id number] Patch Hernia Ventralex Med - [id number] Implanted:Qty: 1 on 04/21/2016 by Ronit Kamara MD at OR [facility] N/A: Abdomen CR BARD : DAVOL 03/21/2017 [id number] / / [id number] System Ttp Vario Onofre [id number] - [id number] Implanted:Qty: 1 on 09/29/2021 by Lc Flores MD [place] [facility] Left: Ear [employer] 08/25/2025 [id number] / / [id number] Stent Viabil Biliary [id number] - [id number] Implanted:Qty: 1 on 07/10/2024 by Lakhwinder Kamara DO at OR [facility] [employer] [id number] 12/12/2026 [id number] / [id number] / [id number] documented as of this encounter Visit Diagnoses Diagnosis Calculus of gallbladder and bile duct without cholecystitis or obstruction- Primary Calculus of gallbladder and bile duct without cholecystitis, without mention of obstruction Encounter for removal of biliary stent [...] Power of Attor nemo? No Care Teams Test Administrator Relationship Specialty Start Date End Date Carmen Manuel PA-C PCP - General Physician Shroud Line Tier 05/09/24 documented as of this encounter
--- OUTSIDE RECORDS SUMMARY | 2024-07-30 18:20 | External Medical Summary | Summary of Care ---
Author Name Unknown Organization [facility] Address [address] [facility] [place] [address] Phone [phone] Care Team Providers Care Morning Babysitter Name Role Phone Carmen Manuel PA-C Primary Care Provider +[phone] Reason for Visit * Reason Onset Date Comments Advice 07/10/2024 Encounter Details Date Type Department Care Team (Late st Contact Info) Description 07/10/2024 Telephone Gastroenterology, [facility] [address] [place] [address] Lakhwinder Torres DO [address] [place] [address] Advice Allergies No known active allergiesdocumented as of this encounter (statuses as of 07/10/2024) Medications B-12-SL 1000 MCG Sublingual Tablet Sublingual [...] as of this encounter (statuses as of 07/10/2024) Active Problems Problem Noted Date Diagnosed Date Choledocholithiasis 07/10/2024 Cholelithiasis 07/10/2024 Elevated bilirubin 07/10/2024 Elevated liver enzymes 07/10/2024 Headache 07/10/2024 Irritable bowel syndrome 07/10/2024 Polycystic ovarian syndrome 07/10/2024 Type 2 diabetes mellitus wit h hemoglobin A1c goal of less than 7.0% 12/09/2022 Hyperinsulinemia 10/05/2022 Prediabetes 06/07/2022 Overview: Per Prediabetes protocol Mood disorder 10/27/2021 Perforation of right tympanic [...] as of this encounter (statuses as of 07/10/2024) Resolved Problems Problem Noted Date Diagnosed Date Resolved Date Class 2 severe obesity due t o excess calories with serious comorbidity and body mass index (BMI) of 37.0 to 37.9 in adult 10/18/2023 4 Type 2 diabetes mellitus wit h hemoglobin A1c goal of less than 7.0% 08/06/2022 10/05/2022 Dermatitis of ear canal 12/11/201811/22 Acute otitis [...] as of this encounter (statuses as of 07/10/2024) Immunizations Name Administration Dates Next Due Covid-19 [...] 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 The patient may be a candidate for Raimundo Tapia documented in this encounter Plan of Treatment Upcoming Encounters Date Type Department Care Team (Late st Contact Info) Description 07/12/2024 7:40 AM EST Office Visit [facility] [address] [place] [address] Ron Arnett MD [address] [place] [address] 09/17/2024 8:40 AM EST Telemedicine Neurology [place] [address] [place] [phone] Opal Guzman DO [address] [place] [facility] [place] [address] 10/18/2024 10:00 AM EDT Office Visit [facility] [address] [place] [phone] Carmen Manuel PA-C [address] [place] [address] 11/12/2024 10:40 AM EDT Office Visit Nutrition & Weight Management, [facility] [address] [facility] [place] [address] Aretha Armstrong PA-C [facility] [place] [address] 01/07/2025 10:00 AM EDT Office Visit Audiology, [place] [address] [facility] [place] [address] Donna Marshall Au.D. [address] [place] [address] 01/07/2025 10:30 AM EDT Office Visit Otolaryngology/Head & Neck/Facial Plastic Surgery [address] [place] [address] Lc Flores MD [address] [place] [address] Scheduled Orders Name Type Priority Associated Diagnoses Orde r Schedule ERCP W/ STENT EXCHANGE Procedures Routine Choledocholithiasis Ordered: 07/10/2024 Scheduled Procedures Name Priority Associated Diagnoses Date/Ti me ENDOSCOPIC RETROGRADE CHOLANGIOPANCREATOGRAPHY (ERCP) DIAGNOSTIC Nausea Abdominal pain Elevated LFTs 07/10/2024 2:11 PM EST Health Maintenance Due Date Last Done [...] 2024 COVID-19 Vaccine ( season) 2024 10/03/2020 HbA1c 04/02/2024 10/01/2023, 04/20/2022 Albumin/Creatinine Ratio 09/30/2024 10/01/2023 GFR 07/10/2025 07/10/2024, 11/22, 10/22/2016, Additional history exists DTap/Tdap Vaccines (4 - [...] this encounter Medical Devices Implanted Type Area Traffic Operations Manager Device Identifier Shelf Expiration Date Model / Serial / Lot Tube Ventilation Mitchell Beveled - [id number] Implanted:Qty: 1 on 01/08/2016 by Emile Cat DO at OR [facility] Left: Ear GYRUS : ENT 11/20/2025 [id number] / / [id number] Patch Hernia Ventralex Med - [id number] Implanted:Qty: 1 on 04/21/2016 by Ronit Torres MD at OR [facility] N/A: Abdomen CR BARD : DAVOL 03/21/2017 [id number] / / [id number] System Ttp Jenny Onofre [id number] - [id number] Implanted:Qty: 1 on 09/29/2021 by Lc Flores MD at OR [facility] Left: Ear [employer] 08/25/2025 [id number] / / [id number] Stent Viabil Biliary [id number] - [id number] Implanted:Qty: 1 on 07/10/2024 by Lakhwinder Torres DO [email or web address] [id number] 12/12/2026 [id number] / [id number] / [id number] documented as of this encounter Visit Diagnoses Diagnosis Choledocholithiasis- Primary Calculus of bile duct without mention of cholecystitis or obstruction documented in this encounter Advance Directives * [...] Power of Attor nemo? No Care Teams Morning Babysitter Relationship Specialty Start Date End Date Carmen Manuel PA-C [address] [place] [phone] PCP - General Physician Label Pinker 05/09/24 documented as of this encounter
--- OUTSIDE RECORDS SUMMARY | 2024-07-30 18:20 | External Medical Summary ---
Author Name Unknown Address Unknown Organization : Laboratory Report Ordering Provider Test Date Status LAURY SCHREIBER 07/10/2024 21:35:02 Final Observation Date Value Abnormality Reference (Units ) Status Glucose Point of Care 07/10/2024 21:35:02 89 70-120 (mg/dL) Final Performing Location
--- OUTSIDE RECORDS SUMMARY | 2024-07-30 18:20 | External Medical Summary ---
Author Name Unknown Address Unknown Organization : Laboratory Report Ordering Provider Test Date Status TRACEY ZAYAS 07/11/2024 07:36:00 Final Observation Date Value Abnormality Reference (Units ) Status Glucose Point of Care 07/11/2024 07:36:00 106 70-120 (mg/dL) Final Performing Location
--- OUTSIDE RECORDS SUMMARY | 2024-07-30 18:20 | External Medical Summary | Summary of Care ---
Author Name Unknown Organization [facility] Address [address] [place] [address] Phone [phone] Care Team Providers Care House Cleaner Supervisor Name Role Phone Carmen Manuel PA-C Primary Care Provider [phone] Reason for Visit * Reason Onset Date Comments Appointment 04/12/2024 Encounter Details Date Type Department Care Team (Late st Contact Info) Description 04/12/2024 Telephone Otolaryngology/Head & Neck/Facial Plastic Surgery [address] [place] [address] Lc Flores MD [address] [place] [address] Appointment Allergies No known active allergiesdocumented as of this encounter (statuses as of 07/12/2024) Medications B-12-SL 1000 MCG Sublingual Tablet Sublingual (Cyanocobalamin) Indications:B12 deficiency Place 1,000 mcg under the tongue in the morning. 90 Tablet 3 10/18/2023 Active Famotidine 20 MG Oral Tablet (Pepcid)Indicati ons:Acute gastritis, presence of bleeding unspecified, unspecified gastritis type Take 1 Tablet by mouth in the morning and 1 Tablet before bedtime. 180 Tablet 3 10/18/2023 Active FLUoxetine HCl 10 MG Oral Capsule (PROzac)Indicati ons:Mood disorder (HCC) TAKE 1 CAPSULE BY MOUTH EVERY MORNING 90 Capsule 3 11/02/2023 Active oxyBUTYnin Chloride ER 5 MG Oral Tablet Extended Release 24 HourIndications: OAB (overactive bladder) Take 1 Tablet by mouth in the morning. Do not cut, crush or chew. 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 Flores asked to call back and confirm documented in this encounter Plan of Treatment Upcoming Encounters Date Type Department Care Team (Latest Contact Info) Description 07/24/2024 2:45 PM EST Office Visit General Surgery, [facility] [address] [address] Ronit Torres MD [address] [place] [address] [address] 08/28/2024 8:45 AM EST Hospital Encounter ENDO [facility], Endoscopy Room [facility] [address] [place], [place] [phone] Lakhwinder Torres, DO [address] [place] [address] 08/28/2024 8:45 AM EST - 08/28/2024 9:30 AM EST Surgery ENDO [facility], Endoscopy Room [facility] [address] [place], [place] [phone] Lakhwinder Torres, DO [address] [place] [address] ENDOSCOPIC RETROGRADE CHOLANGIOPANCREATOGRAPHY (ERCP) W/STENT REMOVAL AND EXCHANGE; INC DILATION, GUIDE WIRE AND SPHINCTEROTOMY 09/17/2024 8:40 AM EST Telemedicine Neurology [facility] [address] [place] [address] [place] [phone] Opal Guzman [address] [facility], [place] [address] 10/18/2024 10:00 AM EDT Office Visit [facility] [phone] Carmen Manuel PA-C [address] [place] [address] 11/12/2024 10:40 AM EDT Office Visit Nutrition & Weight Management, [facility] [address] [place] [address] Aretha Armstrong PA-C [address] [place] [address] 01/07/2025 10:00 AM EDT Office Visit [facility], [place] [address] [facility] [address] Donna Marshall Au.D. [address] [place] [address] 01/07/2025 10:30 AM EDT Office Visit Otolaryngology/ Head & Neck/Facial Plastic Surgery [address] [place] [address] Lc Flores MD [address], [place] [id number] Scheduled Procedures Name Priority Associated Diagnoses Date/Ti [...] this encounter Medical Devices Implanted Type Area Oven Drier Tender Device Identifier Shelf Expiration Date Model / Serial / Lot Tube Ventilation Mitchell Beveled - [id number] Implanted:Qty: 1 on 01/08/2016 by Emile Cat DO at OR [facility] Left: Ear GYRUS : ENT 11/20/2025 [id number] / / [id number] Patch Hernia Ventralex Med - [id number] Implanted:Qty: 1 on 04/21/2016 by Ronit Torres MD at OR [facility] N/A: Abdomen CR BARD : DAVOL 03/21/2017 [id number] / / [id number] System Ttp Vario Onofre [id number] - [id number] Implanted:Qty: 1 on 09/29/2021 by Lc Flores MD at OR [facility] Left: Ear [employer] 08/25/2025 [id number] / / [id number] Stent Viabil Biliary [id number] - [id number] Implanted:Qty: 1 on 07/10/2024 by Lakhwinder Torres DO at OR [facility] [employer] [id number] 12/12/2026 [id number] / [id number] / [id number] documented as of this encounter Advance Directives [...] Power of Attor nemo? No Care Teams House Cleaner Supervisor Relationship Specialty Start Date End Date Carmen Manuel PA-C PCP - General Physician Sales And Service Officer 05/09/24 documented as of this encounter
--- OUTSIDE RECORDS SUMMARY | 2024-07-30 18:20 | External Medical Summary | Summary of Care ---
Author Name Unknown Organization [facility] Address [address] [facility] [place] [address] Phone [phone] Care Team Providers Care Etl Analyst Developer Name Role Phone Carmen Manuel PA-C Primary Care Provider [phone] [phone] Reason for Visit * Reason Onset Date Comments Advice 07/10/2024 Encounter Details Date Type Department Care Team (Late st Contact Info) Description 07/10/2024 Telephone Gastroenterology, [facility] [address] [place] [address] Lakhwinder Torres DO [address] [place] [address] Advice Allergies No known active allergiesdocumented as of this encounter (statuses as of 07/11/2024) Medications B-12-SL 1000 MCG Sublingual Tablet Sublingual [...] 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 [facility] [place] [place] [address] 09/17/2024 8:40 AM EST Telemedicine Neurology [address] [place] [address] [place] [phone] Opal Guzman DO [address] [place] [address] 10/18/2024 10:00 AM EDT Office Visit Family [facility] [address] [place] [phone] Carmen Manuel PA-C [address] [facility] [place], [place] [address] 11/12/2024 10:40 AM EDT Office Visit Nutrition & Weight Management, [facility] 132 [place] [address] Aretha Armstrong PA-C 132 [place] [address] 01/07/2025 10:00 AM EDT Office Visit Audiology, [place] [address] [place] [address] Donna Marshall Au.D. [address] [place] [address] 01/07/2025 10:30 AM EDT Office Visit Otolaryngology/Head & Neck/Facial Plastic Surgery [address] [place] [address] Lc Flores MD [address] [place] [address] Scheduled Orders Name Type Priority Associated Diagnoses Orde r Schedule ERCP W/ STENT EXCHANGE Procedures Routine Choledocholithiasis Ordered: 07/10/2024 Health Maintenance Due Date Last Done Comments [...] this encounter Medical Devices Implanted Type Area Hog Pusher Device Identifier Shelf Expiration Date Model / Serial / Lot Tube Ventilation Pope Isabeled - [id number] Implanted:Qty: 1 on 01/08/2016 by Emile Cat, at OR [facility] Left: Ear GYRUS : ENT 11/20/2025 [id number] / / [id number] Patch Hernia Ventralex Med - [id number] Implanted:Qty: 1 on 04/21/2016 by Ronit Torres MD at OR [facility] N/A: Abdomen CR BARD : DAVOL 03/21/2017 [id number] / / [id number] System Ttp Jenny Onofre [id number] - [id number] Implanted:Qty: 1 on 09/29/2021 by Lc Flores MD at OR [facility] Left: Ear V[employer]ICAL 08/25/2025 [id number] / / [id number] Stent Viabil Biliary [id number] - [id number] Implanted:Qty: 1 on 07/10/2024 by Lakhwinder Torres DO at OR [facility] [employer] [id number] 12/12/2026 [id number] / [id number] / [id number] documented as of this encounter Visit Diagnoses [...] Power of Attor nemo? No Care Teams Etl Analyst Developer Relationship Specialty Start Date End Date Carmen Manuel PA-C [address] [facility] [place] [address] PCP - General Physician Sheepskin Pickler 05/09/24 documented as of this encounter
--- OUTSIDE RECORDS SUMMARY | 2024-07-30 18:20 | External Medical Summary ---
Author Name Unknown Address Unknown Organization : Laboratory Report Ordering Provider Test Date Status LAURY SCHREIBER 07/11/2024 05:48:01 Final Observation Date Value Abnormality Reference (Units ) Status Glucose Point of Care 07/11/2024 05:48:01 63 Below low normal 70-120 (mg/dL) Final Performing Location
--- OUTSIDE RECORDS SUMMARY | 2024-07-30 18:20 | External Medical Summary | Summary of Care ---
Author Name Unknown Organization [facility] Address [address] [place] [address] Phone [phone] Care Team Providers Care Supervisor Customer Services Name Role Phone Carmen Sierra PA-C Primary Care Provider [phone] Reason for Visit * Reason Onset Date Comments Appointment 07/11/2024 Encounter Details Date Type Department Care Team (Late st Contact Info) Description 07/11/2024 Telephone Access Center, [place] [address] [facility] *DO NOT REMOVE THIS DEPARTMENT* [place], [place] [phone] Services, Scheduling [address] [place] [address] Appointment Allergies No known active allergiesdocumented as of this encounter (statuses as of 07/16/2024) Medications B-12-SL 1000 MCG Sublingual Tablet Sublingual [...] Tablet 07/11/2024 2:00 PM EST 4 07/21/20 24 Active oxyCODONE HCl 5 MG Oral Tablet [...] as of this encounter (statuses as of 07/16/2024) Active Problems Problem Noted Date Diagnosed Date [...] as of this encounter (statuses as of 07/16/2024) Resolved Problems Problem Noted Date Diagnosed Date [...] as of this encounter (statuses as of 07/16/2024) Immunizations Name Administration Dates Next Due Covid-19 [...] 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 [...] encounter Miscellaneous Notes * Telephone Encounter - Heather Hopkins OSA - 07/16/2024 10:54 AM EST Lmm Pt needs HD appt with any provider at [facility] 07/16/2024 10:54 AM * Telephone Encounter - Sathya [facility] Barry - 07/11/2024 1:11 PM EST Order RETURN APPT [IP355] (Order [id number]) Waqas Campa 07/10/2024 8:46 AM Admission Description: 39 year old female Department: [facility] Message Patient Name: WAQAS CAMPA([id number]) Sex: Female : 1985 PCP: CARMEN SIERRA Center: [facility] Types of orders made on 07/11/2024: Communication, Diet, IP Post Discharge , Lab, Medications, Point of Care Testing, Point of Care Testing - Unsolicited Results Order Date:07/11/2024 Ordering User:JESSE CRUMP [[id number]] Attending Provider:Jose Newell MD [[id number]] Authorizing Provider: Jesse Crump MD [[id number]] Department:6[facility][[id number]] Order Specific Information Order: RETURN APPT [CUSTOM: IP355] Order #: [id number]: 1 Priority: Routine Class: Nursing Unit Department [...] Time Department Released By/Authorizing 07/11/2024 1:[address] [place] [address] Jesse Crump MD (auto-released) Order Providers Authorizing Provider Encounter Provider ([id number]) Jesse Crump MD None Priority and Order [...] Tests Indicated will be Scheduled at a [facility] Encounter View Parent Encounter Reprint Requisition RETURN APPT (Order #[id number]) on 07/11/24 Detailed Information Priority and Order Details Reference Links Acct Guarantor Acct Type [id number] WAQAS CAMPA Personal/Family [1] [id number] WAQAS CAMPA Personal/Family [1] [id number] WAQAS CAMPA Personal/Family [1] Service Location Name Address [address] [phone] Currently Active Insurance Payor Plan Subscriber Member ID GHP COMMERCIAL GHP CHOICE NO REF RP-SAND DIGGER WAQAS CAMPA [id number] documented in this encounter Plan of Treatment Upcoming Encounters Date Type Department Care Team (Latest Contact Info) Description 07/24/2024 2:45 PM EST Office Visit General Surgery, [facility] [address] [address] Ronit Torres MD [address] [place] [address] 08/28/2024 8:45 AM EST Hospital Encounter ENDO [facility], Endoscopy Room [facility] [address] [phone] Lakhwinder Torres DO [address] [place] [address] 08/28/2024 8:45 AM EST - 08/28/2024 9:30 AM EST Surgery ENDO [facility], Endoscopy Room [facility] [address] [place] [phone] Lakhwinder Torres, [address] [place] [address] ENDOSCOPIC RETROGRADE CHOLANGIOPANCREATOGRAPHY (ERCP) W/STENT REMOVAL AND EXCHANGE; INC DILATION, GUIDE WIRE AND SPHINCTEROTOMY 09/17/2024 8:40 AM EST Telemedicine Neurology [address] [place] [address] Opal Guzman DO [address] [facility] [place] [address] 10/18/2024 10:00 AM EDT Office Visit [facility] [address] [place] [phone] Carmen Sierra PA-C [address] [place] [address] 11/12/2024 10:40 AM EDT Office Visit Nutrition & Weight Management, [facility] [address] [place] [address] Aretha Armstrong PA-C [address] [place] [address] 01/07/2025 10:00 AM EDT Office Visit Audiology, [place] [address] [facility] [place] [address] Donna Marshall Au.D. [address] [place] [facility] [place] [address] 01/07/2025 10:30 AM EDT Office Visit Otolaryngology/ Head & Neck/Facial Plastic Surgery [address] [place] [address] Lc Flores MD [address] [place] [address] Scheduled Procedures Name Priority Associated Diagnoses Date/Ti [...] 63 Years) (1 of 2 - PCV) 02/27/2003 [...] this encounter Medical Devices Implanted Type Area Training Mgr Device Identifier Shelf Expiration Date Model / Serial / Lot Tube Ventilation Mitchell Beveled - [id number] Implanted:Qty: 1 on 01/08/2016 by Emile Cat DO at OR [facility] Left: Ear GYRUS : ENT 11/20/2025 [id number] / / [id number] Patch Hernia Ventralex Med - [id number] Implanted:Qty: 1 on 04/21/2016 by Ronit Torres MD at OR [facility] N/A: Abdomen CR BARD : DAVOL 03/21/2017 [id number] / / [id number] System Ttp Vario Onofre [id number] - [id number] Implanted:Qty: 1 on 09/29/2021 by Lc Flores MD at OR [facility] [place] Left: Ear VU [employer] 08/25/2025 [id number] / / [id number] Stent Viabil Biliary [id number] - [id number] Implanted:Qty: 1 on 07/10/2024 by Lakhwinder Torres DO at OR [facility] [employer] ABDIRASHID [id number] 12/12/2026 [id number] / [id number] / [id number] documented as of this encounter Advance Directives [...] Power of Attor nemo? No Care Teams Supervisor Customer Services Relationship Specialty Start Date End Date Carmen Sierra PA-C PCP - General Physician Receptionist Clerk 05/09/24 documented as of this encounter
--- OUTSIDE RECORDS SUMMARY | 2024-07-30 18:20 | External Medical Summary ---
Author Name Unknown Address Unknown Organization K1F:[facility] [address] [facility] [place] [address] Laboratory Report Ordering Provider Test Date Status LAURY SCHREIBER 07/11/2024 05:01:00 Final Observation Date Value Abnormality Reference (Units ) Status BUN 07/11/2024 05:01:00 4 Below low normal 6-20 (mg/dL) Final Creatinine 07/11/2024 05:01:00 0.7 0.5-1.0 (mg/dL) Final Glomerular filtration rate/1.73 sq M.predicted [Volume Rate/Area] in Serum, Plasma or Blood by Creatinine-based formula (CKD-EPI) 07/11/2024 05:01:00 >90 >=60 (mL/min) Final eGFR is calculated based on the CKD-EPI 2020 equation. Sodium 07/11/2024 05:01:00 137 135-146 (m mol/L) Final Potassium 07/11/2024 05:01:00 3.9 3.5-5.1 (m mol/L) Final Cl 07/11/2024 05:01:00 109 Above high normal 98 -107 (mmol/L) Final CO2 07/11/2024 05:01:00 19 Below low normal 22- 32 (mmol/L) Final Anion gap 07/11/2024 05:01:00 9 7-15 (mmol /L) Final Glucose 07/11/2024 05:01:00 69 Below low normal 70- 120 (mg/dL) Final Albumin 07/11/2024 05:01:00 3.1 Below low normal 3.8 -5.0 (g/dL) Final AST (Aspartate aminotransferase) 07/11/2024 05:01:00 167 Above high normal 10-35 (U/L) Final Alk Phos 07/11/2024 05:01:00 93 35-130 (U/ L) Final Bilirubin, Total 07/11/2024 05:01:00 1.9 Above high no rmal <=1.2 (mg/dL) Final Calcium 07/11/2024 05:01:00 7.8 Below low normal 8.4 -10.2 (mg/dL) Final Protein 07/11/2024 05:01:00 5.1 Below low normal 6.0 -8.3 (g/dL) Final ALT (Alanine aminotransferase) 07/11/2024 05:01:00 608 Above high normal 10-35 (U/L) Final Performing Location LABORATORY [facility] - [facility] [address] [place] [address]
--- OUTSIDE RECORDS SUMMARY | 2024-07-30 18:21 | External Medical Summary ---
Author Name Unknown Address Unknown Organization : Laboratory Report Ordering Provider Test Date Status LAURY SCHREIBER 07/10/2024 12:15:20 Final Observation Date Value Abnormality Reference (Units ) Status Glucose Point of Care 07/10/2024 12:15:20 109 70-120 (mg/dL) Final Performing Location
--- OUTSIDE RECORDS SUMMARY | 2024-07-30 18:21 | External Medical Summary ---
Author Name Unknown Address Unknown Organization K01:[facility] [place] [address] [place] [address] Laboratory Report Ordering Provider Test Date Status LARUY SCHREIBER 07/10/2024 10:27:00 Final Observation Date Value Abnormality Reference (Units ) Status HbA1C 07/10/2024 10:27:00 4.7 4.0-5.6 (% ) Final The use of HbA1c to monitor glycemic status is based on normal hemoglobin and HbA composition. This test should not be used in patients with abnormal hemoglobin that affects the half life of the red blood cell or the in vivo glycation rates. Glucose, estimated average 07/10/2024 10:27:00 88 <126 (mg/dL) Final Performing Location [facility] [place] [address] [place] [address]
--- OUTSIDE RECORDS SUMMARY | 2024-07-30 18:21 | External Medical Summary ---
Author Name Unknown Address Unknown Organization : Laboratory Report Ordering Provider Test Date Status LAURY SCHREIBER 07/10/2024 11:30:30 Final Observation Date Value Abnormality Reference (Units ) Status Glucose Point of Care 07/10/2024 11:30:30 63 Below low normal 70-120 (mg/dL) Final Performing Location
--- OUTSIDE RECORDS SUMMARY | 2024-07-30 18:21 | External Medical Summary ---
Author Name Unknown Address Unknown Organization : Laboratory Report Ordering Provider Test Date Status LAURY SCHREIBER 07/10/2024 16:38:17 Final Observation Date Value Abnormality Reference (Units ) Status Glucose Point of Care 07/10/2024 16:38:17 87 70-120 (mg/dL) Final Performing Location
--- OUTSIDE RECORDS SUMMARY | 2024-07-30 18:21 | External Medical Summary ---
Author Name Unknown Address Unknown Organization K1F:LABORATORY [facility] - [address] [place] [address] Laboratory Report Ordering Provider Test Date Status LAURY SCHREIBER 07/10/2024 10:27:00 Final Observation Date Value Abnormality Reference (Units ) Status WBC, Total 07/10/2024 10:27:00 4.23 4.00-10.80 (K/uL) Final RBC 07/10/2024 10:27:00 3.76 3.85-5.15 (M/uL) Final Hemoglobin 07/10/2024 10:27:00 11.3 Below low normal 12.0-15.3 (g/dL) Final HCT 07/10/2024 10:27:00 35.2 Below low normal 36.0-45.2 (%) Final MCV 07/10/2024 10:27:00 93.6 81.5-97.5 (fL) Final MCH 07/10/2024 10:27:00 30.1 27.0-34.0 (pg) Final MCHC 07/10/2024 10:27:00 32.1 32.0-36.0 (g/dL) Final RDW 07/10/2024 10:27:00 13.6 11.5-15.5 (%) Final Platelets 07/10/2024 10:27:00 161 140-400 (K/uL) Final MPV 07/10/2024 10:27:00 10.0 6.6-11.1 (fL) Final Nucleated erythrocytes/100 leukocytes [Ratio] in Blood by Automated count 07/10/2024 10:27:00 0 <=0 (/100 WBCs) Final Performing Location LABORATORY [facility] - [address] [place] [address]
--- OUTSIDE RECORDS SUMMARY | 2024-07-30 18:21 | External Medical Summary ---
Author Name Unknown Address Unknown Organization K1F:LABORATORY [facility] - [address] [place] [address] Laboratory Report Ordering Provider Test Date Status LAURY SCHREIBER 07/10/2024 10:27:00 Final Warfarin Therapy
INR: 2 .0-3.0 conventional anticoagulation
INR: 2.5- 3.5 high intensity anticoagulation Observation Date Value Abnormality Reference (Units ) Status PT 07/10/2024 10:27:00 14.8 11.6-15.2 (seconds) Final INR 07/10/2024 10:27:00 1.1 0.8-1.2 Final Performing Location LABORATORY [facility] - [address] [place] [address]
--- OUTSIDE RECORDS SUMMARY | 2024-07-30 18:21 | External Medical Summary ---
Author Name Unknown Address Unknown Organization : Laboratory Report Ordering Provider Test Date Status LAURY SCHREIBER 07/10/2024 15:43:38 Final Observation Date Value Abnormality Reference (Units ) Status Glucose Point of Care 07/10/2024 15:43:38 100 70-120 (mg/dL) Final Performing Location
--- OUTSIDE RECORDS SUMMARY | 2024-07-30 18:21 | External Medical Summary ---
Author Name Unknown Address Unknown Organization K1F[facility] [address] [facility] [place] [address] Laboratory Report Ordering Provider Test Date Status LAURY SCHREIBER 07/10/2024 10:27:00 Final Observation Date Value Abnormality Reference (Units ) Status BUN 07/10/2024 10:27:00 6 6-20 (mg/dL) Final Creatinine 07/10/2024 10:27:00 0.7 0.5-1.0 (mg/dL) Final Glomerular filtration rate/1.73 sq M.predicted [Volume Rate/Area] in Serum, Plasma or Blood by Creatinine-based formula (CKD-EPI) 07/10/2024 10:27:00 >90 >=60 (mL/min) Final eGFR is calculated based on the CKD-EPI 2020 equation. Sodium 07/10/2024 10:27:00 140 135-146 (m mol/L) Final Potassium 07/10/2024 10:27:00 3.5 3.5-5.1 (m mol/L) Final Cl 07/10/2024 10:27:00 110 Above high normal 98 -107 (mmol/L) Final CO2 07/10/2024 10:27:00 20 Below low normal 22- 32 (mmol/L) Final Anion gap 07/10/2024 10:27:00 10 7-15 (mmol /L) Final Glucose 07/10/2024 10:27:00 77 70-120 (mg /dL) Final Albumin 07/10/2024 10:27:00 3.6 Below low normal 3.8 -5.0 (g/dL) Final AST (Aspartate aminotransferase) 07/10/2024 10:27:00 524 Above high normal 10-35 (U/L) Final Alk Phos 07/10/2024 10:27:00 115 35-130 (U/ L) Final Bilirubin, Total 07/10/2024 10:27:00 4.7 Above high no rmal <=1.2 (mg/dL) Final Calcium 07/10/2024 10:27:00 8.0 Below low normal 8.4 -10.2 (mg/dL) Final Protein 07/10/2024 10:27:00 5.8 Below low normal 6.0 -8.3 (g/dL) Final ALT (Alanine aminotransferase) 07/10/2024 10:27:00 983 Above high normal 10-35 (U/L) Final Performing Location LABORATORY [facility] - [facility] [address] [place] [address]
[2024-07-30] MEDS: oxyCODONE/ACETAMINOPHEN 5mg/325mg TAB PO PRN (22:16)
[2024-07-31] MEDS ORDERED: Nursing to Pharmacy Communication SCH ×2 (00:15→09:15)
[2024-07-31] MEDS: INSULIN ASPART PER UNIT CHARGE SC SCH (06:10)
--- NOTE | 2024-07-31 06:56 | Electrocardiogram Report ---
Test Reason : Blood Pressure : */* mmHG Vent. Rate : 79 BPM Atrial Rate : 79 BPM P-R Int : 126 ms QRS Dur : 82 ms QT Int : 380 ms P-R-T Axes : 48 36 58 degrees QTcB Int : 435 ms Normal sinus rhythm Normal ECG When compared with ECG of 09-Jul-2024 21:51, No significant change was found Confirmed by Fredis Zhang ([id number]) on 07/31/2024 6:55:57 AM Referred By: Confirmed By: Fredis Zhang
[2024-07-31 08:12] LABS: Estimated Average Glucose 88 mg/dl; Hemoglobin A1C 4.7 % (4.5-5.6)
[2024-07-31] MEDS ORDERED: PROPOFOL IV EMULSION 10 MG/ML 20 ML VIAL IV ONE (08:36)
[2024-07-31] MEDS ORDERED: ONDANSETRON INJ 2 MG/ML 2 ML VIAL ONE (08:36)
[2024-07-31] MEDS ORDERED: LIDOCAINE 2% 2 ML VIAL/AMP(20MG/ML) INFIL ONE (08:36)
[2024-07-31] MEDS ORDERED: DEXAMETHASONE SOD INJ 4 MG/ML VIAL ONE (08:36)
[2024-07-31] MEDS ORDERED: MIDAZOLAM HCL 1 MG/ML 2ML VIAL ONE (08:38)
[2024-07-31] MEDS ORDERED: fentaNYL citrate PF 100 MCG/2 ML VIAL ONE (08:38)
[2024-07-31] MEDS ORDERED: ROCURONIUM BROMIDE 10 MG/ML 5 ML VIAL IV ONE (08:39)
--- NOTE | 2024-07-31 09:05 | History & Physical Bridge Note ---
Date of Service July 31, 2024 History & Physical Bridge Note I have examined the patient, reviewed the History & Physical and in the interval since the performance of the History & Physical I have noted the following changes of clinical significance: no changes noted discussed options/risks ( bleeding/infection/blood clots/bile duct or other organ injury etc...). questions answered. will proceed today with cordelia callahan
--- NOTE | 2024-07-31 09:09 | Anesthesiology Consultation ---
Date of Service July 31, 2024 Assessment & Plan Chart Review Chart Review: Acceptable Risk for Surgery Consults Requested none History Surgery Operation Date: 07/31/24 07:00 Proposed Procedures p Laparoscopic Cholecystectomy - Mirza Reynolds DO Height/Weight Height: 4 ft 9 in Weight: 51.256 kg Allergies Allergy/AdvReac Type Severity Reaction Status Date / Time No Known Allergies Allergy Verified 07/31/24 09:09 Medications Home Medications Medication Instructions Recorded Confirmed Last Taken fluoxetine 10 mg capsule (Prozac) 10 mg PO DAILY 04/30/21 11/03/23 Unknown hydroxyzine HCl 10 mg tablet 10 mg PO ONCE PRN 08/19/22 11/03/23 Unknown tirzepatide [Mounjaro] subcut 08/25/22 11/03/23 Unknown cyanocobalamin (vitamin B-12) sublingual 10/24/23 11/03/23 Unknown topiramate 25 mg tablet mg PO 10/24/23 11/03/23 Unknown sucralfate 100 mg/mL oral 10 ml PO QID #420 mL 07/07/24 Unknown suspension (Carafate) oxycodone 5 mg tablet 5 - 10 mg (1 - 2 x 5 mg) PO 07/31/24 Unknown .[id number] PRN pain, for initial therapy, max 6 tabs per day #15 tabs Active Medications Generic Name Dose Route Start Last Admin Trade Name Freq PRN Reason Stop Dose Admin Insulin Aspart 0 units 07/31/24 06:00 07/31/24 06:10 Insulin Aspart Per Unit Charge SC 08/30/24 05:59 Not Given Q6 CHARAN Morphine Sulfate 2 mg 07/30/24 15:50 07/31/24 07:36 Morphine Sulfate 2 Mg/Ml Carp IV 08/13/24 15:49 2 mg Q3H PRN Administration Mod-Sev Pain (Scale 4-10) Oxycodone/Acetaminophen 2 tab 07/30/24 15:50 07/30/24 22:16 Oxycodone/Acetaminophen 5mg/325mg Tab PO 08/13/24 15:49 2 tab Q4H PRN Administration SEVERE Pain (7,8,9,10) NPO Date Last Intake of Solids: 07/30/24 Time Last Intake of Solids: 23:59 Past Medical History Medical History (Updated 07/30/24 @ 22:25 by Dallas Ashby MD) Oligomenorrhea Polycystic ovarian syndrome Chest wall pain Past Family History Family History Grandmother Diabetes Denies family history of Ovarian cancer Breast cancer Past Surgical History Surgical History S/P ear surgery Hernia, umbilical History of tympanoplasty Hx of tonsillectomy Myringotomy tube status Social History Smoking Status: Never smoker Do You Dip or Chew Tobacco: No Hx Alcohol Use: No Hx Substance Use: No Physical Exam Vital Signs Last Vital Signs Temp 36.6 C 07/31/24 07:06 Pulse 71 07/31/24 07:06 Resp 18 07/31/24 07:06 BP 96/58 L 07/31/24 07:06 Pulse Ox 99 07/31/24 07:06 O2 Del Method Room Air 07/31/24 07:06 Testing Laboratory Results 07/30/24 12:51 07/30/24 12:51 Hemoglobin A1c 4.7 % (4.5-5.6) 07/31/24 07:28 Urine Color Yellow 07/30/24 12:48 Urine Appearance Clear (Clear) 07/30/24 12:48 Urine pH 5.5 (4.5-7.5) 07/30/24 12:48 Ur Specific [place] 1.005 (1.000-1.030) 07/30/24 12:48 Urine Protein Negative (Negative) 07/30/24 12:48 Urine Glucose (UA) Negative (Negative) 07/30/24 12:48 Urine Ketones Negative (Negative) 07/30/24 12:48 Urine Nitrite Negative (Negative) 07/30/24 12:48 Ur Leukocyte Esterase Negative (Negative) 07/30/24 12:48 07/31/24 07/31/24 08:42 05:38 POC Glucose 84 80
[2024-07-31] MEDS ORDERED: HYDROmorphone INJ 2 MG/ML SYR/VIAL IV PRN (09:10)
[2024-07-31] MEDS ORDERED: ATROPINE SULFATE 0.1 MG/ML 10ML SYR IV PRN (09:10)
[2024-07-31] MEDS ORDERED: ONDANSETRON INJ 2 MG/ML 2 ML VIAL IV PRN (09:10)
[2024-07-31] MEDS ORDERED: ePHEDrine sulfate 50 MG/ML AMP IV PRN (09:10)
[2024-07-31] MEDS ORDERED: PROMETHAZINE HCL 6.25 MG in SODIUM CHLORIDE 0.9% 50 ML IV PRN (09:10)
[2024-07-31] MEDS ORDERED: fentaNYL citrate PF 100 MCG/2 ML VIAL IV PRN (09:10)
[2024-07-31] MEDS: ceFAZolin 2,000 MG/15 ML IV PUSH IV ONE (09:13)
[2024-07-31] MEDS: LR 15ML/HR IV SCH (09:16)
[2024-07-31] MEDS: ceFAZolin 2000MG 2,000 MG/15 ML SYR IV ONE (09:29)
[2024-07-31] MEDS ORDERED: SUGAMMADEX SODIUM 200 MG/2 ML VIAL IV ONE (10:09)
[2024-07-31] MEDS: BUPIVACAINE/EPINEPHRINE 0.5% MPF 1:200,000 30 ML VIAL ONE (10:10)
--- NOTE | 2024-07-31 10:19 | Operative Report ---
PG Post Operative Report Pre & Post Diagnosis Operation Date: 07/31/24 07:00 Pre-Op Diagnosis: Cholelithiasis Post-Op Diagnosis: Cholelithiasis I identified the patient and participated in the time-out.: Yes Procedure Operation Date: 07/31/24 07:00 Actual Procedures p Laparoscopic Cholecystectomy(Not Applicable) - Mirza Reynolds DO Surgeon Mirza Reynolds DO [employer] Program Director andi Sommers Estimated Blood Loss 10 Findings Consistent with Post-Op Diagnosis Specimens gallbladder Description of Procedure After informed consent was obtained the patient was taken to the operating room and placed in the supine position. After successful intubation the abdomen was sterilely prepped and draped in usual fashion. A periumbilical incision was made with an 11 blade scalpel and carried down through the soft tissue using electrocautery. The anterior rectus fascia was opened using electrocautery and 2 #0 Vicryl stay sutures were placed. The peritoneum was elevated with hemostats and incised under direct vision using Metzenbaum scissors. A finger sweep was performed and a 12 mm Huddleston trocar was placed. The abdomen was insufflated to 18 mmHg. The laparoscope was inserted and the abdomen was examined in 360. No gross abnormalities were identified. A subxiphoid 5 mm port and 2 right upper quadrant 5 mm ports were placed under direct vision. The patient was placed in a reverse Trendelenburg position and slightly airplaned to the left. The gallbladder was grasped and elevated superiorly and laterally. A [place] dissector was used to take down adhesions around the neck of the gallbladder. The cystic duct was identified and skeletonized. It was clipped twice proximally and once distally and transected using a laparoscopic scissor. In similar fashion the cystic artery was identified and skeletonized clipped and divided. The gallbladder was removed from the gallbladder fossa with electrocautery. It was placed into an Endo Catch bag. Thorough irrigation was performed. At the end of the procedure there was adequate hemostasis and no evidence of any bile leaks. A final look around the abdomen showed no other abnormalities. The gallbladder and trochars were all removed and the abdomen was desufflated. The fascia of the camera port was closed using 0 Vicryl in a [id number] fashion. All the wounds were irrigated and closed using 4-0 Monocryl. Marcaine was injected around them for postoperative analgesia and skin glue used as a dressing. The patient was awaken extubated and transferred to recovery in stable condition. My physician's assistant principal was present throughout the entire case... helped with prepping the patient. With exposure for trocar placement, as well as retracted the gallbladder throughout the case and also assisted with wound closure and dressing placement. I attest to the content of the Intraoperative Record and any orders documented therein. Any exceptions are noted below.
--- NOTE | 2024-07-31 12:29 | Anesthesiology Progress Note ---
Date of Service July 31, 2024 Anesthesia Post Procedure Vital Signs Vital Signs: Temp Pulse Pulse Pulse Resp BP BP 07/31/24 12:06 70 16 89/54 L 07/31/24 11:32 36.7 C 69 16 92/58 L 07/31/24 11:00 36.7 C 71 14 98/63 L 07/31/24 10:50 36.8 C 69 13 98/62 L 07/31/24 10:40 71 12 109/62 07/31/24 10:30 74 12 111/63 07/31/24 10:22 36.4 C L 88 18 114/64 07/31/24 09:09 36.8 C 74 18 103/63 07/31/24 07:06 36.6 C 71 18 07/31/24 05:45 36.7 C 70 16 07/30/24 19:44 36.9 C 78 16 07/30/24 15:51 36.6 C 77 18 07/30/24 15:30 75 15 102/53 L 07/30/24 15:06 75 19 110/67 07/30/24 14:30 73 07/30/24 14:12 16 07/30/24 14:12 73 18 07/30/24 12:36 36.7 C 89 20 110/84 BP Pulse Ox O2 Del Method O2 Flow Rate 07/31/24 12:06 96 Room Air 07/31/24 11:32 98 Room Air 07/31/24 11:00 98 Room Air 07/31/24 10:50 98 Room Air 07/31/24 10:40 98 Room Air 07/31/24 10:30 100 Room Air 07/31/24 10:22 100 Oxymask 3 07/31/24 09:09 100 Room Air 07/31/24 07:06 96/58 L 99 Room Air 07/31/24 05:45 92/59 L 99 Room Air 07/30/24 19:44 100/67 100 Room Air 07/30/24 15:51 109/71 98 Room Air 07/30/24 15:30 100 07/30/24 15:06 100 07/30/24 14:30 07/30/24 14:12 100 Room Air 07/30/24 14:12 114/68 100 Room Air 07/30/24 12:36 100 Room Air Pain Intensity Abdomen: Pain Intensity: 4 Transfer of Care Handoff Completed per policy Notes Mental Status: alert / awake / arousable and participated in evaluation Patient Amnestic to Procedure: Yes Nausea / Vomiting: adequately controlled Pain: adequately controlled Airway Patency, RR, SpO2: stable & adequate BP & HR: stable & adequate Hydration State: stable & adequate Anesthetic Complications: no major complications apparent
[2024-07-31 13:05] VITALS: PULSE 80; RESP 18; TEMP 98.2; O2SAT 98
[2024-07-31 13:53] VITALS: BP 100/61
[2024-07-31] MEDS ORDERED: INSULIN ASPART PER UNIT CHARGE SC SCH (16:30)
--- NOTE | 2024-07-31 17:52 | Discharge Summary ---
Date of Service July 31, 2024 Admission HPI Per Admitting Provider Patient is a pleasant 39 yo female with PMH of type 2 diabetes, IBS, that presented to the [facility] ER July 09 with abdominal pain and found to have acute cholecystitis and a CBD stone. She was transferred to [facility] and underwent two stent placements by Dr Torres (CBD and pancreas per pt , no access to [facility] charts). She was schedule to be seen as an outpatient this by [facility] surgery but was directed to come to the ER after calling and reporting chills, and an increase in abdominal pain that two days ago which is described as pressure that is unrelenting and reports she does not know how long she can continue with the pain. Endorses associated fever and chills overnight, no n/v. Denies blood thinners, prior abdominal surgeries include umbilical hernia repair. Reports last BM yesterday and stools have been loose since stent placement. Principal Diagnosis biliary colic , cholelithiasis Discharge Exam Constitutional cooperative; no acute distress Respiratory normal respiratory effort and able to speak in complete sentences; no respir atory distress Cardiovascular Rate/Rhythm: regular rate Gastrointestinal (Abdomen) Inspection/Auscultation: abdomen not distended Percussion/Palpation: + abdomen tender and abdomen soft Musculoskeletal no cyanosis or clubbing, extremities motor strength 5/5 Psychiatric A+Ox3, euthymic affect Discharge Data Allergies Allergy/AdvReac Type Severity Reaction Status Date / Time No Known Allergies Allergy Verified 07/31/24 09:09 Consultations 07/30/24 14:20 Consult General Surgery Stat Procedures Performed Operation Date: 07/31/24 07:00 Actual Procedures p Laparoscopic Cholecystectomy(Not Applicable) - Mirza Reynolds, Ordered Studies 07/30/24 12:56 CT Abd and Pelvis [CT abd pelvis IV con only] Stat Hospital Course (1) Cholelithiasis: This is a 39 yo female who presented to the [facility] ED on 07/30/24 with c/o abdominal pain (see HPI for full details). The patient was tender to palpation in the RUQ. Patient made NPO at [place] and booked for the OR. On the patient went to the OR with Dr Reynolds for a Laparoscopic cholecystectomy. The patient tolerated the procedure well, see operative report for full details. Post operatively the patient's diet was advanced, pain managed on prn meds, and incisions clean/dry/intact. Later in the afternoon on 07/31/24 the patient was deemed stable for discharge to home. The patient was given discharge instructions, follow up recommendations, return precautions and a prescription for pain medication. Total Time Total Time Spent Total Time Spent (In Minutes): 10 Discharge Plan Discharge Items Patient Disposition: Home - Self-Care Reason For Visit: Abdominal Pain Discharge Diagnosis: laparoscopic cholecystectomy Condition on Discharge: Good Activity: Per Instructions section Lifting: No more than 10 pounds Bathing Comment: you can shower, no soaking in pools/bath for 2 weeks Exercise/Sports: Wait until after follow-up appointment Driving/Machine Use: no driving if taking narcotic pain medication Non-emergency contact: Surgeon Call non-emergency contact if: you have any medication questions, your symptoms worsen, your temperature is above 101.5, your wound has increased redness, your wound has increased drainage and your wound pain has increased Follow-up/Referrals: Mirza Reynolds DO [Surgeon] - 08/14/24 9:00 am (call office in 1-2 weeks for f/u ) Jeovanny Nunez MD [Primary Care Provider] - Diet: Regular Addtl Attending Provider Instructions: You have surgical glue called dermabond on your surgical site incisions. You may shower with this on. This will tend to come off within a couple of weeks. Do not pick at it. You may purchase Tylenol and or Ibuprofen over the counter if needed for addition pain control over the next few days. Take per manufacturers instructions, Do not take more than 3 grams of Tylenol in 24 hours. Pending Studies at Discharge: Yes Studies:: surgical pathology Stand-Alone Forms: My [facility], Smoking Cessation Medications and DC Order Prescriptions: New oxycodone 5 mg tablet 5 - 10 mg PO .[id number] PRN (Reason: pain, for initial therapy, max 6 tabs per day) Qty: 15 0RF Continued hydroxyzine HCl 10 mg tablet 10 mg PO ONCE PRN tirzepatide [Mounjaro] subcut fluoxetine [Prozac] 10 mg capsule 10 mg PO DAILY topiramate 25 mg tablet PO cyanocobalamin (vitamin B-12) sublingual sucralfate [Carafate] 100 mg/mL suspension 10 ml PO QID Qty: 420 0RF Rx Instructions: swish in mouth and swallow; use after food/drink: May substitute tablets as a slurry. Discharge Orders: Discharge Order (Routine); Ordered 07/31/24 Ordered By: Lulu Linares/Other Patient Handouts: Oxycodone Oral Tablet Admission Data Admit Date/Time: 07/30/24 14:45 Attending Provider: Mirza Reynolds Admit Provider: Mirza Reynolds Primary Care Provider: Jeovanny Nunez Other Providers: Mirza Reynolds Other Interventions: Discharge Summary Assessment (RN) Last Done: 07/31/24 13:34 Coding Level of Care Code 14093 IN/OBS DISCH 30 MIN/LESS Diagnoses Cholelithiasis K80.20
== END 2024-07-31 14:58 | disposition home or self-care (01) ==
LOC: 3N 12:28 → ED 12:28 → 3N 15:40